=== PATIENT | female | born 1935 | race Caucasian/White ===

== ENCOUNTER 2016-07-09 13:46 | Emergency (ER) | payer OTHER ==
[~2016-07-09] VITALS: Ht 152.4 cm; Wt 72.0 kg
[~2016-07-09 13:46] MED LIST: ACET1TAB84 PO; ASPCH81 PO; ATOR-22 PO; CHOL100010 PO; COEN100C28 PO; CYAN500T PO; DEXTCAP23 PO; GLC500 PO; GLIM2TAB2 PO; MAGN400T6 PO; PRN10125 PO; RXC5 PO
[2016-07-09 14:01] VITALS: TEMP 36.9; Ht 152.4 cm; Wt 72.0 kg
[2016-07-09 14:55] LABS: URINE APPEARANCE CLEAR (CLEAR); URINE BILIRUBIN NEG (NEG); URINE COLOR YELLOW; URINE NITRITE NEG (NEG); URINE SPECIFIC GRAVITY 1.008 (1.000-1.030); UROBILINOGEN NEG (NEG); ZZUR CULT IF INDIC CLEAN CATCH NO
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
[2016-07-09 15:14] LABS: MANUAL MICROSCOPIC REQUIRED? NO; REVIEW REQ? NO
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
[2016-07-09 16:50] VITALS: BP 119/68; PULSE 80; O2SAT 95
== END 2016-07-09 16:51 | disposition home or self-care (01) ==
LOC: EDBD 13:46 → C.EDC 13:48
DX: S39.012A Strain of muscle, fascia and tendon of lower back, initial encounter (principal); V49.40XA Driver injured in collision with unspecified motor vehicles in traffic accident, initial encounter; Y93.89 Activity, other specified; Y99.8 Other external cause status; Y92.488 Other paved roadways as the place of occurrence of the external cause; Z98.1 Arthrodesis status; Z83.3 Family history of diabetes mellitus; Z82.49 Family history of ischemic heart disease and other diseases of the circulatory system; Z79.82 Long term (current) use of aspirin

== ENCOUNTER → 2016-08-07 | Outpatient (CLI) | payer OTHER ==
[2016-08-07 18:04] LABS: BLOOD UREA NITROGEN 22 mg/dl (7-18); BUN/CREATININE RATIO 22.7 (10-20); CALCIUM 10.3 mg/dl (8.5-10.1); CARBON DIOXIDE 29 mmol/L (21-32); CHLORIDE 104 mmol/L (98-107); CREATININE 0.98 mg/dl (0.60-1.20); GLUCOSE 70 mg/dl (70-99); POTASSIUM 4.1 mmol/L (3.5-5.1); SODIUM 141 mmol/L (136-145)
[2016-08-08 07:02] LABS: ESTIMATED AVERAGE GLUCOSE 128 mg/dl; HA1C FLAG Normal (Normal)
== END | disposition home or self-care (01) ==
LOC: C.LABPVFM 16:05
PROVIDERS: ATTEND Family Medicine
DX: E11.9 Type 2 diabetes mellitus without complications (principal); I10 Essential (primary) hypertension

== ENCOUNTER → 2016-10-18 | Outpatient (CLI) | payer OTHER ==
--- NOTE | 2016-10-18 16:39 | MAMMOGRAPHY REPORT ---
BILATERAL DIGITAL SCREENING MAMMOGRAM WITH CAD: 10/18/2016 CLINICAL HISTORY: Routine screening. TECHNIQUE: Current study was also evaluated with a Computer Aided Detection (CAD) system. Bilatera l CC and MLO views were obtained. COMPARISON: Comparison is made to exams dated: 10/18/2015 mammogram, 10/15/2014 mammogram, 10/14/2013 mammogram, 08/30/2012 mammogram, 08/03/2011 mammogram, and 07/18/2010 mammogram - [facility] enter. BREAST COMPOSITION: The tissue of both breasts is heterogeneously dense, which may obscure small ma sses. FINDINGS: No suspicious masses, calcifications, or areas of architectural distortion are noted in e ither breast. There has been no significant interval change compared to prior exams. Bilateral spencer gn-appearing calcifications are not significantly changed. IMPRESSION: ACR BI-RADS CATEGORY 2: BENIGN There is no mammographic evidence of malignancy. A 1 year screening mammogram is recommended. The p atient will receive written notification of the results. Approximately 10% of breast cancers are not detected with mammography. A negative mammographic repor t should not delay biopsy if a clinically suggestive mass is present. Kisha Saba M.D. ah/:10/18/2016 16:10:46 Mortgage Loan Processor: Vera PENN(R)(M), [facility] letter sent: Normal 1/2 BI-RADS Code: ACR BI-RADS Category 2: Benign
== END | disposition home or self-care (01) ==
LOC: C.MAMM 09:57
PROVIDERS: ATTEND Family Medicine
DX: Z12.31 Encounter for screening mammogram for malignant neoplasm of breast (principal)

== ENCOUNTER → 2017-04-04 | Outpatient (CLI) | payer OTHER ==
[2017-04-04 13:02] LABS: ALT/SGPT 24 U/L (12-78); AST/SGOT 13 U/L (15-37); BLOOD UREA NITROGEN 26 mg/dl (7-18); BUN/CREATININE RATIO 26.1 (10-20); CARBON DIOXIDE 26 mmol/L (21-32); CHLORIDE 106 mmol/L (98-107); CREATININE 0.99 mg/dl (0.60-1.20); GLUCOSE 144 mg/dl (70-99); MAGNESIUM 1.6 mg/dl (1.8-2.4); POTASSIUM 5.2 mmol/L (3.5-5.1); SODIUM 143 mmol/L (136-145)
[2017-04-04 13:05] LABS: CHOLESTEROL 199 mg/dl (0-200); CHOLESTEROL/HDL RATIO 3.7; HDL CHOLESTEROL 54 mg/dl; LDL CHOLESTEROL CALCULATED 114 mg/dl; TRIGLYCERIDES 156 mg/dl (0-150); VERY LOW DENSITY LIPOPROT CALC 31 mg/dl
== END ==
LOC: C.LABBFT 07:34
PROVIDERS: ATTEND Family Medicine
DX: E78.2 Mixed hyperlipidemia (principal); I10 Essential (primary) hypertension; E83.42 Hypomagnesemia

== ENCOUNTER 2017-07-04 11:44 | Observation (INO) | payer OTHER ==
[2017-06-20 09:34] VITALS: BMI 33.0
--- NOTE | 2017-06-20 10:07 | PAT Medication Instructions ---
Service Date Jun 20, 2017. Current Home Medication List Aspirin (Aspirin 81), 1 TAB PO HS Atorvastatin (Lipitor), 20 MG PO HS Cholecalciferol (Vitamin D3), 2,000 UNITS PO QD@1200 Coenzyme Q10 (Ubidecarenone) (Co Q10), 1 CAP PO QPM Cyanocobalamin (Vitamin B-12), 500 MCG PO QPM Glimepiride (Glimepiride), 1 TAB PO BID Lisinopril/Hctz (Prinzide 10-12.5MG *), 1 TAB PO QD@1200 Magnesium Oxide (Mag-Ox), 400 MG PO BID Metformin Hcl (Glucophage), 1 TAB PO BID Medication Instructions For Your Scheduled Surgery - Check with surgeon for instructions: Aspirin (Aspirin 81), 1 TAB PO HS - Hold the following medications 2 weeks prior to surgery: Coenzyme Q10 (Ubidecarenone) (Co Q10), 1 CAP PO QPM - Hold the following medications 24 hours prior to surgery: Lisinopril/Hctz (Prinzide 10-12.5MG *), 1 TAB PO QD@1200 - Hold the following medications 48 hours prior to surgery: Metformin Hcl (Glucophage), 1 TAB PO BID - Hold the following medications the morning of surgery: Cholecalciferol (Vitamin D3), 2,000 UNITS PO QD@1200 Glimepiride (Glimepiride), 1 TAB PO BID Magnesium Oxide (Mag-Ox), 400 MG PO BID - Take the following medications as scheduled the night before surgery: Magnesium Oxide (Mag-Ox), 400 MG PO BID Glimepiride (Glimepiride), 1 TAB PO BID Cyanocobalamin (Vitamin B-12), 500 MCG PO QPM Atorvastatin (Lipitor), 20 MG PO HS If you have any questions please call us at [phone] or [phone] or [phone]
[2017-06-20 11:59] LABS: BASO % 0.3 %; BASO ABS # 0.02 K/uL (0-0.2); EOS % 1.5 %; EOS ABS # 0.11 K/uL (0-0.5); HEMATOCRIT 38.9 % (37-47); HEMOGLOBIN 13.3 g/dL (12.0-16.0); IG# 0.04 K/uL (0.00-0.02); LYMPH % 29.5 %; LYMPH ABS # 2.18 K/uL (1.2-3.4); MEAN CELL VOLUME 95.1 fL (80-100); MEAN CORPUSCULAR HEMOGLOBIN 32.5 pg (25-34); MEAN CORPUSCULAR HGB CONC 34.2 g/dl (32-36); MEAN PLATELET VOLUME 10.7 fL (7.4-10.4); MONO ABS # 0.52 K/uL (0.11-0.59); NEUT % 61.2 %; NEUT ABS # 4.51 K/uL (1.4-6.5); PLATELET COUNT 238 K/uL (130-400); RED CELL DISTRIBUTION WIDTH SD 44.9 fL (36.4-46.3); WHITE BLOOD COUNT 7.38 K/uL (4.8-10.8)
[2017-06-20 12:20] LABS: CALCIUM 9.4 mg/dl (8.5-10.1); POTASSIUM 4.1 mmol/L (3.5-5.1)
[2017-06-20 12:34] LABS: CREATININE 0.96 mg/dl (0.60-1.20)
[2017-07-04] VITALS (8 sets, daily range): BP systolic 118–175; BP diastolic 70–92; PULSE 68–96; TEMP 36.4–37.6; O2SAT 91–99; Ht 152.4 cm; Wt 77.1 kg
[~2017-07-04] VITALS: Ht 152.4 cm; Wt 77.1 kg
[~2017-07-04 11:44] MED LIST changes: -ACET1TAB84 PO; -ASPCH81 PO; +ASPI-435 PO; +CEFAZOLIN 1000MG IV PUSH 5 ML IV SCH; -CHOL100010 PO; -DEXTCAP23 PO; -GLC500 PO; +LACTATED RINGER'S 1000ML 1,000 ML IV SCH; +METF1000 PO; -RXC5 PO; +VTMD1000 PO
[2017-07-04] MEDS ORDERED: ONDANSETRON INJ 2 MG/ML 2 ML VIAL IV PRN (12:15)
[2017-07-04] MEDS ORDERED: FLUMAZENIL 0.1 MG/1 ML 10 ML VIAL IV PRN (12:15)
[2017-07-04] MEDS ORDERED: MEPERIDINE HCL 25 MG/ML CARP IV PRN (12:15)
[2017-07-04] MEDS ORDERED: EpHEDrine SULFATE INJ 50 MG/ML AMP IV PRN (12:15)
[2017-07-04] MEDS ORDERED: FENTANYL CITRATE INJ 50 MCG/1 ML 2 ML VIAL IV PRN (12:15)
[2017-07-04] MEDS ORDERED: PHENYLEPHRINE 100MCG/ML 5ML SYR IV PRN (12:15)
[2017-07-04] MEDS ORDERED: ATROPINE SULFATE 0.1 MG/ML 5ML SYR IV PRN (12:15)
[2017-07-04] MEDS ORDERED: NALOXONE HCL 0.4 MG/1 ML VIAL/CARP IV PRN (12:15)
[2017-07-04] MEDS ORDERED: LABETALOL HCL IV 5 MG/ML 20ML IV PRN (12:15)
[2017-07-04] MEDS ORDERED: HYDROmorphone INJ 2 MG/ML SYR/VIAL IV PRN (12:15)
[2017-07-04] MEDS ORDERED: FENTANYL CITRATE INJ 50 MCG/1 ML 2 ML VIAL ONE (13:35)
[2017-07-04] MEDS ORDERED: MIDAZOLAM HCL 1 MG/ML 2ML VIAL ONE (13:35)
--- NOTE | 2017-07-04 13:36 | History & Physical Bridge Note ---
H&P Re-Evaluation Bridge Note: I have examined the patient, reviewed the History & Physical and in the interval since the performance of the History & Physical I have noted the following changes of clinical significance: No changes noted
--- NOTE | 2017-07-04 13:37 | History and Physical ---
History & Physical Date Jul 04, 2017. Chief Complaint Right SI joint pain History of Present Illness The patient is a 81 year old female with complaints of right SI joint pain Past Medical/Surgical History Medical Problems: (1) Lumbar stenosis with neurogenic claudication Additional History Hepatic Disease: No Endocrine Disorder: No Kidney Disease: No Hypertension: Yes Heart Disease: No Bleeding Tendencies: No Infectious Diseases: No Allergies Coded Allergies: Nifedipine (Verified Adverse Reaction, Unknown, pt states unable to tolerate-does not remember what occurred, 07/04/17) Home Medications Scheduled Aspirin (Aspirin 81), 1 TAB PO HS Atorvastatin (Lipitor), 20 MG PO HS Cholecalciferol (Vitamin D3), 2,000 UNITS PO QD@1200 Coenzyme Q10 (Ubidecarenone) (Co Q10), 1 CAP PO QPM Cyanocobalamin (Vitamin B-12), 500 MCG PO QPM Glimepiride (Glimepiride), 1 TAB PO BID Lisinopril/Hctz (Prinzide 10-12.5MG *), 1 TAB PO QD@1200 Magnesium Oxide (Mag-Ox), 400 MG PO BID Metformin Hcl (Glucophage), 1 TAB PO BID Physical Examination Skin: warm/dry, no rash Eyes: normal inspection, EOMI, sclerae normal ENT: normal ENT inspection, pharynx normal Head: normocephalic, atraumatic Neck: supple, no adenopathy, trachea midline Respiratory/Chest: lungs clear, normal breath sounds, no respiratory distress Cardiovascular: regular rate, rhythm, no edema, no murmur Abdomen / GI: normal bowel sounds, non tender Back: normal inspection Extremities: normal inspection, normal range of motion Neurologic/Psych: no motor/sensory deficits, alert, normal reflexes, oriented x 3 Diagnosis Right sacroiliitis Plan of Treatment Right SI joint fusion
[2017-07-04] MEDS ORDERED: BACITRACIN 50000 UNIT VIAL ONE (14:06)
[2017-07-04] MEDS ORDERED: BUPIVACAINE 0.5 % 5 MG/1 ML MPF 30ML VIAL ONE (14:07)
[2017-07-04] MEDS ORDERED: EpINEphrine INJ 1MG/ML AMP 1 MG/ML AMP ONE (14:07)
[2017-07-04] MEDS ORDERED: HYDROmorphone INJ 2 MG/ML SYR/VIAL ONE (14:09)
[2017-07-04] MEDS ORDERED: ROCURONIUM BROMIDE 10 MG/ML 5 ML VIAL IV ONE (14:52)
[2017-07-04] MEDS ORDERED: PHENYLEPHRINE 100MCG/ML 5ML SYR ONE (14:52)
[2017-07-04] MEDS ORDERED: PROPOFOL IV EMULSION 10 MG/ML 20 ML VIAL IV ONE (14:52)
[2017-07-04] MEDS ORDERED: LIDOCAINE HCL 2% 2 ML VIAL (20MG/ML) ONE (14:52)
[2017-07-04] MEDS ORDERED: ONDANSETRON INJ 2 MG/ML 2 ML VIAL ONE (14:52)
[2017-07-04] MEDS: SODIUM CHLORIDE 0.9% 1000ML 1,000 ML IV SCH ×2 (15:16→23:28)
--- NOTE | 2017-07-04 15:22 | [facility] Operative Report ---
Operative Report Operative Date Jul 04, 2017. Pre-Operative Diagnosis Right sacroiliitis Post-Operative Diagnosis same as preoperative diagnosis Procedure(s) Performed Right Sacroiliac Joint Fusion Surgeon Dr. Jones Multiple Resaw Operator Surgeon(s) Ashlyn TRAMMELL Estimated Blood Loss 10ml Findings None Specimens none Description of Procedure Patient was met with preoperatively case discussed all questions addressed. After informed consent obtained patient was taken to the operative suite underwent intubation and placed in a prone position the Demar table with chest pads and hip bolsters. The right upper buttock was then prepped and draped in normal sterile fashion. With the assistance of fluoroscopy identified the lateral inlet and outlet views of the right SI joint. A small 3 cm incision was placed on the right upper buttock and a guidewire was placed across the proximal aspect of the right SI joint. We verified our position with fluoroscopy. I then used dilators over the guidewire and subsequent 10 mm drill across SI joint. We placed a 40 mm WHALEN-coated slotted screw across the joint. A had excellent fit. Using outrigger guide a placed a second distal guidewire again verifying position with inlet outlet and lateral views. Was again dilated and drilled with a 10 mm drill. A 35 mm WHALEN-coated slotted screw again filled with locally harvested morcellized autograft and DBM placed across the joint. We had excellent fit appreciated at this screw as well. Incision was in copious irrigated and closed the subcutaneous Vicryl and 4 Monocryl for final skin closure Steri-Strip sterile dressing was placed. The patient awakened and taken to PACU in stable. Please note Zahira Pugh was present at the entire procedure involved in patient positioning complex portions of the surgery and final skin closure. I attest to the content of the Intraoperative Record and any orders documented therein. Any exceptions are noted below.
--- NOTE | 2017-07-04 15:24 | DIAGNOSTIC IMAGING REPORT ---
INTRAOPERATIVE SACRUM 3 VIEWS CLINICAL HISTORY: RT SACROILIAC JOINT FUSION COMPARISON STUDY: Lumbar spine dated 07/09/2016 FINDINGS: 91 seconds of fluoroscopic time was utilized. 3 intraoperative fluoroscopic spot images are provided for interpretation. There are postsurgical changes of discectomies and interbody fusions at the L4-5, and L5-S1 levels. 2 cannulated bolts/screws traverse the right SI joint. IMPRESSION: Interval placement of 2 right sacroiliac cannulated bolts/screws. Electronically signed by: Elfego Tariq M.D. 07/04/2017 3:23 PM Dictated Date/Time: 07/04/2017 3:21 PM
[2017-07-04] MEDS ORDERED: ACETAMINOPHEN 500 MG TAB PO PRN (15:30)
[2017-07-04] MEDS ORDERED: DO NOT ADMINISTER FLU VACCINE PRN (15:30)
[2017-07-04] MEDS ORDERED: HYDROmorphone INJ 1 MG/ML SYR IV PRN (15:30)
[2017-07-04] MEDS ORDERED: MAGNESIUM HYDROXIDE SUSP 30 ML UDC PO PRN (15:30)
[2017-07-04] MEDS ORDERED: LORAZEPAM INJ 1 MG in SYRINGE 0 ML IV PRN (15:30)
[2017-07-04] MEDS ORDERED: DO NOT ADMINISTER PNEUMOCOCCAL VACCINE PRN (15:30)
[2017-07-04] MEDS ORDERED: LORAZEPAM 1 MG TAB PO PRN (15:30)
[2017-07-04] MEDS ORDERED: OXYCODONE HCL IR 5 MG TAB (IMMEDIATE RELEASE) PO PRN (15:30)
[2017-07-04] MEDS ORDERED: NEOSTIGMINE METHYLSULFATE 1 MG/ML 10ML VIAL ONE (15:38)
[2017-07-04] MEDS ORDERED: ESMOLOL HCL 10 MG/ML 10 ML VIAL ONE (15:38)
[2017-07-04] MEDS ORDERED: GLYCOPYRROLATE INJ 0.2 MG/ML VIAL ONE (15:38)
[2017-07-04] MEDS ORDERED: ALBUTEROL HFA INHALER 8.5 GM INH ONE (15:38)
[2017-07-04] MEDS ORDERED: IV FLUIDS COMPLETED PRN (16:00)
--- NOTE | 2017-07-04 16:38 | Anesthesiology Progress Note ---
Anesthesia Post Op Note Date & Time Jul 04, 2017 at 16:38 Vital Signs Pain Intensity: 0 Vital Signs Past 12 Hours Date Time Temp Pulse Resp B/P (MAP) Pulse Ox O2 Delivery O2 Flow Rate FiO2 07/04/17 16:10 71 16 133/74 97 Nasal Cannula 2 07/04/17 16:00 37.2 76 18 134/66 98 Nasal Cannula 2 07/04/17 15:50 83 14 143/74 99 Oxymask 10 07/04/17 15:40 84 16 134/66 100 Oxymask 10 07/04/17 15:30 36.5 80 16 139/64 97 Oxymask 10 07/04/17 12:16 36.6 75 18 144/73 (96) 96 Room Air Notes Mental Status: alert / awake / arousable, participated in evaluation Pt Amnestic to Procedure: Yes Nausea / Vomiting: adequately controlled Pain: adequately controlled Airway Patency, RR, SpO2: stable & adequate BP & HR: stable & adequate Hydration State: stable & adequate Anesthetic Complications: no major complications apparent
[2017-07-04] MEDS ORDERED: NURSING DECISION MEDICATION ORDER SCH (17:30)
[2017-07-04] MEDS ORDERED: GLIMEPIRIDE 2 MG TAB PO SCH (17:45)
[2017-07-04] MEDS ORDERED: COUGH DROP (SUGAR FREE) LOZ 24 LOZ/1 BOX PO PRN (18:00)
[2017-07-04] MEDS ORDERED: DEXTROSE 50% 50 ML SYR IV PRN (18:15)
[2017-07-04] MEDS ORDERED: GLUCAGON FOR INJ 1 MG VIAL SQ PRN (18:15)
[2017-07-04] MEDS ORDERED: GLUCOSE 40% GEL 15 GM TUBE PO PRN (18:15)
[2017-07-04] MEDS ORDERED: GLUCOSE 10 TABS/TUBE PO PRN (18:15)
[2017-07-04] MEDS: ACETAMINOPHEN 325 MG TAB PO PRN (19:23)
[2017-07-04] MEDS ORDERED: ATORVASTATIN 20 MG TAB PO SCH (21:00)
[2017-07-04] MEDS ORDERED: ASPIRIN 81 MG ECTAB PO SCH (21:00)
[2017-07-04] MEDS: INSULIN ASPART 100 UNITS/ML 3 ML PEN SC SCH (21:00)
[2017-07-04] MEDS: MAGNESIUM OXIDE 400 MG TAB PO SCH (21:31)
[2017-07-04] MEDS: DOCUSATE SODIUM 100 MG CAP PO SCH (21:31)
[2017-07-04] MEDS ORDERED: CEFAZOLIN IV 1,000 MG in DEXTROSE 5% 50ML 50 ML IV SCH (22:00)
[2017-07-04] MEDS: CEFAZOLIN IV 1,000 MG in SYRINGE 0 ML IV SCH (22:35)
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
[2017-07-05] MEDS: ACETAMINOPHEN 325 MG TAB PO PRN (02:30)
[2017-07-05 04:00] VITALS: BP 124/71; PULSE 65; TEMP 36.9; O2SAT 92
[2017-07-05] MEDS: CEFAZOLIN IV 1,000 MG in SYRINGE 0 ML IV SCH (06:18)
[2017-07-05 06:30] LABS: BASO % 0.1 %; BASO ABS # 0.01 K/uL (0-0.2); EOS % 1.4 %; HEMATOCRIT 35.5 % (37-47); HEMOGLOBIN 12.1 g/dL (12.0-16.0); IG# 0.01 K/uL (0.00-0.02); LYMPH % 33.9 %; LYMPH ABS # 2.43 K/uL (1.2-3.4); MEAN CELL VOLUME 93.9 fL (80-100); MEAN CORPUSCULAR HGB CONC 34.1 g/dl (32-36); MEAN PLATELET VOLUME 10.1 fL (7.4-10.4); MONO % 9.6 %; MONO ABS # 0.69 K/uL (0.11-0.59); NEUT % 54.9 %; NEUT ABS # 3.93 K/uL (1.4-6.5); PLATELET COUNT 230 K/uL (130-400); RED CELL DISTRIBUTION WIDTH CV 12.6 % (11.5-14.5); RED CELL DISTRIBUTION WIDTH SD 43.4 fL (36.4-46.3); WHITE BLOOD COUNT 7.17 K/uL (4.8-10.8)
[2017-07-05 07:04] LABS: ALBUMIN 2.9 gm/dl (3.4-5.0); CALCIUM 9.1 mg/dl (8.5-10.1); CREATININE 1.02 mg/dl (0.60-1.20); POTASSIUM 3.9 mmol/L (3.5-5.1)
[2017-07-05 07:06] LABS: TOTAL PROTEIN 5.8 gm/dl (6.4-8.2)
[2017-07-05 07:20] VITALS: BP 130/72; PULSE 65; TEMP 36.8; O2SAT 92
[2017-07-05 07:52] LABS: HEMOGLOBIN A1C 6.6 % (4.5-5.6)
[2017-07-05] MEDS ORDERED: RXC5 PO (08:19)
--- NOTE | 2017-07-05 08:21 | Discharge Instructions ---
Discharge Instructions Date of Service Jul 05, 2017. Admission Reason for Admission: Sacroiliac Joint Dysfunction Discharge Discharge Diagnosis / Problem: sacralilitis Discharge Goals Goal(s): Improve function Activity Recommendations Activity Limitations: per Instructions/Follow-up section May Resume Sexual Activity: after two weeks Shower/Bathe: may shower/bathe in 3 days Weightbearing Status: Right toe touch . Instructions / Follow-Up Instructions / Follow-Up follow in two weeks as scheduled Current Hospital Diet Patient's current hospital diet: Diabetes Type 2 Diet Discharge Diet Recommended Diet: Regular Diet Procedures Procedures Performed: Right Sacroiliac Joint Fusion Pending Studies Studies pending at discharge: no Laboratory Results Hemoglobin A1c Test 07/05/17 06:14 Range/Units Estimated Average Glucose 143 mg/dl Hemoglobin A1c 6.6 H 4.5-5.6 % Lipid Panel Test 04/04/17 08:00 Range/Units Triglycerides Level 156 H 0-150 mg/dl Cholesterol Level 199 0-200 mg/dl HDL Cholesterol 54 mg/dl Cholesterol/HDL Ratio 3.7 LDL Cholesterol, Calculated 114 mg/dl Medical Emergencies . Who to Call and When: Medical Emergencies: If at any time you feel your situation is an emergency, please call 911 immediately. . Non-Emergent Contact Non-Emergency issues call your: Primary Care Provider . "Provider Documentation" section prepared by Carmelo Jones. . VTE Core Measure Inpt VTE Proph given/why not?: Sienna Fernandez, TESS's
[2017-07-05] MEDS: DOCUSATE SODIUM 100 MG CAP PO SCH (08:30)
[2017-07-05] MEDS: MAGNESIUM OXIDE 400 MG TAB PO SCH (08:30)
--- NOTE | 2017-07-05 08:31 | Discharge Summary ---
Orthopedic Discharge Summary Admission Date/Reason Jul 04, 2017 at 14:00 Sacroiliac Joint Dysfunction. Discharge Date/Disposition Jul 05, 2017 Home Diagnosis Principal Diagnosis: Sacroiliitis Admission Physical Exam As per Admitting History & Physical. Hospital Course Patient underwent right SI joint fusion. Tolerated this well. She's taken to the orthopedic floor postop we. She underwent physical therapy will be discharge home today. Discharge Instructions Please refer to the electronic Patient Visit Report (Discharge Instructions) for additional information.
[2017-07-05] MEDS: INSULIN ASPART 100 UNITS/ML 3 ML PEN SC SCH ×2 (08:33→12:38)
--- NOTE | 2017-07-05 08:46 | Anesthesiology Progress Note ---
Anesthesia Post Op Note Date & Time Jul 05, 2017 at 08:46 Vital Signs Pain Intensity: 0.0 Vital Signs Past 12 Hours Date Time Temp Pulse Resp B/P (MAP) Pulse Ox O2 Delivery O2 Flow Rate FiO2 07/05/17 07:25 Room Air 07/05/17 07:20 36.8 65 15 130/72 (91) 92 Room Air 07/05/17 04:00 36.9 65 16 124/71 (88) 92 Room Air 07/04/17 23:35 37.3 76 16 118/70 (86) 91 Room Air 07/04/17 23:25 Room Air Notes Mental Status: alert / awake / arousable, participated in evaluation Pt Amnestic to Procedure: Yes Nausea / Vomiting: adequately controlled Pain: adequately controlled Airway Patency, RR, SpO2: stable & adequate BP & HR: stable & adequate Hydration State: stable & adequate Anesthetic Complications: no major complications apparent
[2017-07-05 09:50] VITALS: BP 130/72; PULSE 65; TEMP 36.8; O2SAT 92
[2017-07-05 11:23] VITALS: BP 137/72; PULSE 69; TEMP 36.7; O2SAT 95
[2017-07-05 11:44] VITALS: BP 136/77; PULSE 72
[2017-07-05] MEDS ORDERED: LISINOPRIL/HCTZ 10/12.5MG TAB PO SCH (12:00)
[2017-07-06] MEDS ORDERED: BISACODYL 10 MG SUPP PR PRN (06:00)
== END 2017-07-05 14:20 | disposition home or self-care (01) ==
LOC: C.ACU 11:44 → C.3E 14:00 → ENRESERV 16:02
PROVIDERS: ADMIT Orthopaedic Surgery Orthopaedic Surgery of the Spine; ATTEND Orthopaedic Surgery Orthopaedic Surgery of the Spine
DX: M46.1 Sacroiliitis, not elsewhere classified (principal); E11.9 Type 2 diabetes mellitus without complications; I73.9 Peripheral vascular disease, unspecified; E78.5 Hyperlipidemia, unspecified; I10 Essential (primary) hypertension; M19.90 Unspecified osteoarthritis, unspecified site; Z98.1 Arthrodesis status; Z79.84 Long term (current) use of oral hypoglycemic drugs; Z83.3 Family history of diabetes mellitus; Z82.49 Family history of ischemic heart disease and other diseases of the circulatory system; Z79.82 Long term (current) use of aspirin

== ENCOUNTER → 2017-09-21 | Outpatient (CLI) | payer OTHER ==
[~2017-09-21] MED LIST changes: -CEFAZOLIN 1000MG IV PUSH 5 ML IV SCH; -LACTATED RINGER'S 1000ML 1,000 ML IV SCH; +RXC5 PO
[2017-09-21 12:56] LABS: HEMOGLOBIN A1C 6.5 % (4.5-5.6)
[2017-09-21 13:12] LABS: ALT/SGPT 21 U/L (12-78); AST/SGOT 13 U/L (15-37); BLOOD UREA NITROGEN 26 mg/dl (7-18); CALCIUM 10.2 mg/dl (8.5-10.1); CARBON DIOXIDE 27 mmol/L (21-32); CREATININE 1.07 mg/dl (0.60-1.20); GLUCOSE 134 mg/dl (70-99); POTASSIUM 4.3 mmol/L (3.5-5.1); SODIUM 139 mmol/L (136-145)
[2017-09-21 13:16] LABS: ALKALINE PHOSPHATASE 80 U/L (45-117); CHOLESTEROL 183 mg/dl (0-200); LDL CHOLESTEROL CALCULATED 101 mg/dl
== END | disposition home or self-care (01) ==
LOC: C.LABBFT 07:34
PROVIDERS: ATTEND Internal Medicine
DX: E78.2 Mixed hyperlipidemia (principal); E11.9 Type 2 diabetes mellitus without complications; E83.42 Hypomagnesemia; E55.9 Vitamin D deficiency, unspecified

== ENCOUNTER → 2017-10-23 | Outpatient (CLI) | payer OTHER ==
--- NOTE | 2017-10-23 14:24 | MAMMOGRAPHY REPORT ---
BILATERAL DIGITAL SCREENING MAMMOGRAM TOMOSYNTHESIS WITH CAD: 10/23/2017 CLINICAL HISTORY: Routine screening. TECHNIQUE: Breast tomosynthesis in addition to standard 2D mammography was performed. Current study was also evaluated with a Computer Aided Detection (CAD) system. COMPARISON: Comparison is made to exams dated: 10/18/2016 mammogram, 10/18/2015 mammogram, 10/15/2014 m ammogram, 10/14/2013 mammogram, 08/30/2012 mammogram, and 08/03/2011 mammogram - [facility]. BREAST COMPOSITION: The tissue of both breasts is heterogeneously dense, which may obscure small mas ses. FINDINGS: The parenchymal pattern is similar to prior exams. There are scattered benign coarse calc ifications in the breasts. No developing mass, architectural distortion or cluster of suspicious ema rocalcifications is seen. IMPRESSION: ACR BI-RADS CATEGORY 2: BENIGN There is no mammographic evidence of malignancy. A 1 year screening mammogram is recommended. The pa tient will receive written notification of the results. Approximately 10% of breast cancers are not detected with mammography. A negative mammographic report should not delay biopsy if a clinically suggestive mass is present. Farzana Silver M.D. ay/:10/23/2017 13:34:18 Wharf Tender Helper: Vera PENN(R)(M), [facility] letter sent: Normal 1/2 BI-RADS Code: ACR BI-RADS Category 2: Benign
== END | disposition home or self-care (01) ==
LOC: C.MAMM 12:54
PROVIDERS: ATTEND Internal Medicine
DX: Z12.31 Encounter for screening mammogram for malignant neoplasm of breast (principal)

== ENCOUNTER → 2018-02-11 | Outpatient (CLI) | payer OTHER ==
[~2018-02-11] MED LIST changes: +ACET1TAB84 PO; -MAGN400T6 PO
[2018-02-11 13:06] LABS: HEMOGLOBIN A1C 6.1 % (4.5-5.6)
[2018-02-11 13:19] LABS: ALBUMIN 3.7 gm/dl (3.4-5.0); ALKALINE PHOSPHATASE 101 U/L (45-117); ALT/SGPT 21 U/L (12-78); AST/SGOT 16 U/L (15-37); BLOOD UREA NITROGEN 19 mg/dl (7-18); CALCIUM 10.3 mg/dl (8.5-10.1); CARBON DIOXIDE 25 mmol/L (21-32); CHOLESTEROL 161 mg/dl (0-200); CREATININE 0.92 mg/dl (0.60-1.20); GLUCOSE 105 mg/dl (70-99); LDL CHOLESTEROL CALCULATED 79 mg/dl; POTASSIUM 4.5 mmol/L (3.5-5.1); SODIUM 139 mmol/L (136-145); TOTAL PROTEIN 7.1 gm/dl (6.4-8.2)
== END | disposition home or self-care (01) ==
LOC: C.LABBFT 08:37
PROVIDERS: ATTEND Internal Medicine
DX: E11.9 Type 2 diabetes mellitus without complications (principal); E83.42 Hypomagnesemia; E55.9 Vitamin D deficiency, unspecified; E78.2 Mixed hyperlipidemia

== ENCOUNTER 2020-12-20 08:06 | Inpatient (IN) ==
--- NOTE | 2020-12-03 16:12 | PAT Medication Instructions ---
Medication Instructions Date of Service December 03, 2020 Home Medications Medication Instructions Recorded blood sugar diagnostic #50 ea 07/31/19 glimepiride 4 mg tablet 4 mg PO BID #180 tab 02/09/20 metformin 1,000 mg tablet 1,000 mg PO BID #180 tab 02/11/20 glimepiride 4 mg tablet 4 mg PO BID metformin 1,000 mg tablet 1,000 mg PO BID magnesium oxide 500 mg capsule 500 mg PO BID aspirin [Aspir-81] 81 mg PO HS atorvastatin 40 mg PO QAM lisinopril 20 mg PO QAM DO NOT take the morning of surgery glimepiride 4 mg tablet 4 mg PO BID metformin 1,000 mg tablet 1,000 mg PO BID magnesium oxide 500 mg capsule 500 mg PO BID lisinopril 20 mg PO QAM Take morning of surgery With a small sip of water, OTHERWISE NOTHING TO EAT OR DRINK AFTER MIDNIGHT: atorvastatin 40 mg PO QAM Take evening before surgery glimepiride 4 mg tablet 4 mg PO BID metformin 1,000 mg tablet 1,000 mg PO BID magnesium oxide 500 mg capsule 500 mg PO BID aspirin [Aspir-81] 81 mg PO HS Other Notes If you have any questions please call us at [phone] or [phone] or [phone] or [phone]
--- NOTE | 2020-12-07 10:22 | Anesthesiology Consultation ---
Date of Service December 07, 2020 Assessment & Plan (1) Encounter for pre-operative examination: Chart Review Chart Review: Acceptable Risk for Surgery (pending PCP clearance 12/08 and preop Covid testing results ) and Patient seen in Pre Admission Testing Awaiting PCP clearance scheduled 12/08/20 - Check BSG AM DOS Per PAT appt on 12/07/20, pt resides in [facility]. Traveled to [facility] over weekend. Wears mask, uses good hand hygiene and socially distances. No known Covid positive contacts or Covid related symptoms. No known Covid infection in the past 90 days. Preop Covid testing scheduled 12/17/20= will await results. Educated on importance of self quarantining, social distancing and wearing mask in public both for the patient after Covid testing done Teaching & Discussion Pre-Anesthesia Teaching/Discussion Notes: Instructed NPO after midnight before surgery,except medications with 15 cc of water. Medication instructions provided according to the PAT guidelines. History Surgery Operation Date: 12/21/20 07:45 Proposed Procedures p Spine: L2-L3 Decompression/Fusion, L3-L4 Hardware Removal,*Spinal Cord Monitoring* - Carmelo Jones, Height/Weight Height: 5 ft Weight: 71.2 kg Allergies Allergy/AdvReac Type Severity Reaction Status Date / Time nifedipine AdvReac Unknown pt states Verified 12/01/20 16:09 unable to tolerate-does not remember what occurred Medications Home Medications Medication Instructions Recorded Confirmed Last Taken blood-glucose meter #1 ea 01/31/19 06/08/20 Unknown blood sugar diagnostic #50 ea 07/31/19 06/08/20 Unknown glimepiride 4 mg tablet 4 mg PO BID #180 tab 02/09/20 12/01/20 Unknown metformin 1,000 mg tablet 1,000 mg PO BID #180 tab 02/11/20 12/01/20 Unknown magnesium oxide 500 mg capsule 500 mg PO BID 05/10/20 12/01/20 Unknown aspirin [Aspir-81] 81 mg PO HS 12/01/20 12/01/20 Unknown atorvastatin 40 mg PO QAM 12/01/20 12/01/20 Unknown lisinopril 20 mg PO QAM 12/01/20 12/01/20 Unknown Past Medical History Medical History (Updated 12/07/20 @ 12:04 by Martina Polk PA-C) Aortic aneurysm Stable per patient - follows with PCP US AAA 07/08/20= "No significant change in an infrarenal abdominal aortic aneurysm, measuring 3.1 cm." Aortic stenosis Mild per 04/2019 ECHO = MICHELLE 1.5cm2; AV mean gradient= 11.3 mmHg; AV max velocity= 2.28m/s No wood 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 Benign essential hypertension Carotid artery stenosis Per 04/17/19 carotid doppler: <50% stenosis to bilateral ICAs, >50% stenosis to left ECA Cerebral ischemia Hyperparathyroidism Follows with endo Hypomagnesemia Lumbar radicular pain Extensive epidural fibrosis Lumbar stenosis with neurogenic claudication Mixed hyperlipidemia Peripheral vascular disease Postlaminectomy syndrome of lumbosacral region Short-term memory loss Type II diabetes mellitus Glucose controlled per patient Exercise / Class Metabolic Activity II 4-5 Yardwork/Stairs/Walk up hill (water walking 3 x week (60 minutes); one flight of stairs- no chest pain or SOB ) Past Family History Family History Father Myocardial infarction Unknown Ovarian cancer granddaughter Daughter Thyroid cancer Malignant neoplasm of kidney Mother Diabetes Brother Diabetes Denies family history of Prostate cancer Breast cancer Colorectal cancer Past Surgical History Surgical History History of cataract surgery R/L History of colonoscopy History of fusion of lumbar spine lumbar vertebral fusion History of hysterectomy History of hysterectomy total with unilateral removal of ovary History of laparoscopic cholecystectomy History of surgical fusion joint sacroiliac joint fusion History of tonsillectomy History of umbilical hernia repair Past Anesthesia History No Hx of Anesthesia Complications and No Family Hx of Anesthesia Complications History of PONV No Hx of PONV and No Hx of Motion Sickness Social History Smoking Status: Never smoker Do You Dip or Chew Tobacco: No Hx Alcohol Use: Yes Alcohol type: hard liquor Alcohol Intake Frequency Comment: 1-2 X A YR Hx Substance Use: No Review of Systems Occ snoring - no witnessed apnea - no hx of sleep study Patient denies chest pain, shortness of breath, dyspnea on exertion, reflux, cough, wheezing, palpitations. No hx of seizures, stroke, [place]. No hx of blood clots or blood transfusions Physical Exam Vital Signs VITALS BP 113/73 P 68 TEMP 98.4 SP02 95% RESP 16 Constitutional no acute distress ENMT Mouth: no TMJ clicking Thyromental Distance: > or= 3.5 Finger Breadths (3.5) Mallampati Class: I Capped on top left front tooth Neck + limited neck extension (mild ) Respiratory normal respiratory effort; no respiratory distress Auscultation: lungs clear to auscultation bilaterally; no wheezes Cardiovascular Rate/Rhythm: regular rate and regular rhythm Heart Sounds: + murmur (III/ systolic murmur ) Vessels: + carotid bruit (presumed radiation to bilateral carotid arteries ) Musculoskeletal Spine: no pain with cervical ROM Extremities: extremities normal to inspection Psychiatric Orientation: alert Lab Results Anesthesia Preop Results Results Anesthesia Widget: WBC 6.47 K/uL (4.8-10.8) 12/07/20 Hgb 13.4 g/dL (12.0-16.0) 12/07/20 Hct 40.0 % (37-47) 12/07/20 Plt 262 K/uL (130-400) 12/07/20 Na 142 mmol/L (136-145) 12/07/20 K 4.6 mmol/L (3.5-5.1) 12/07/20 Cl 109 mmol/L (98-107) H 12/07/20 CO2 26 mmol/L (21-32) 12/07/20 BUN 26 mg/dl (7-18) H 12/07/20 Creat 0.98 mg/dl (0.6-1.2) 12/07/20 Glucose Level 110 mg/dl (70-99) H 12/07/20 PT 10.5 Seconds (9.0-12.0) 12/07/20 PTT 24.9 Seconds (21.0-31.0) 12/07/20 INR 1.0 (0.9-1.1) 12/07/20 HA1c 6.1 % (4.5-5.6) H 12/07/20 Urine Color Yellow 12/07/20 Urine Appearance Clear (Clear) 12/07/20 Urine pH 5.0 (4.5-7.5) 12/07/20 Urine Specific [place] 1.022 (1.000-1.030) 12/07/20 Urine Protein Negative (Negative) 12/07/20 Urine Glucose (UA) Negative (Negative) 12/07/20 Urine Ketones Negative (Negative) 12/07/20 Urine Blood Negative (Negative) 12/07/20 Urine Nitrite Negative (Negative) 12/07/20 Urine Bilirubin Negative (Negative) 12/07/20 Urine Urobilinogen Negative (Negative) 12/07/20 Urine Leukocyte Esterase 1+ (Negative) H 12/07/20 Urine WBC (Auto) 1-5 /hpf (0-5) 12/07/20 Urine RBC (Auto) 0-4 /hpf (0-4) 12/07/20 Urine Hyaline Casts (Auto) 1-5 /lpf (0-5) 12/07/20 Urine Epithelial Cells (Auto) >30 /lpf (0-5) H 12/07/20 Urine Bacteria (Auto) Negative (Negative) 12/07/20 Blood Type A Positive 12/07/20 Antibody Screen NEGATIVE 12/07/20 Testing Electrocardiogram Date: 12/07/20 Findings: + NSR @ (63bpm) Normal EKG per cardio. Chest X-Ray Date: 12/07/20 Findings: + NAD The cardiac and mediastinal contours are normal. There is no evidence of focal pulmonary consolidation. There is no evidence of failure. No pleural effusions are visualized.[Postsurgical changes are present within the lumbar spine. There is calcification within the abdominal aorta which measures a maximum of 32 mm in diameter uncorrected for magnification. There are surgical clips within the right upper quadrant consistent with a prior cholecystectomy. Echocardiogram Date: 04/17/19 EF: 65-70% LV Function: normal RWMA: + none Other Findings: + LVH (mild/concentric ) and + diastolic dysfunction (Grade I ) Mild aortic stenosis. MICHELLE 1.5cm2; AV mean gradient= 11.3 mmHg; AV max velocity= 2.28m/s Other Testing US abdominal aortic aneurysm 07/08/20= No significant change in an infrarenal abdominal aortic aneurysm, measuring 3.1 cm. Carotid duplex 04/17/2019 = <50% stenosis in the internal carotid arteries bilaterally. >50% stenosis in the left ECA. Antegrade flow in both vertebral arteries.
[2020-12-20] MEDS ORDERED: GABAPENTIN 300 MG CAP ONE (08:44)
[2020-12-20] MEDS ORDERED: CeleBREX 200 MG CAP ONE (08:44)
[2020-12-20] MEDS ORDERED: ACETAMINOPHEN 500 MG TAB ONE (08:44)
[2020-12-20] MEDS ORDERED: fentaNYL citrate 100 MCG/2 ML VIAL IV PRN (08:50)
[2020-12-20] MEDS ORDERED: ONDANSETRON INJ 2 MG/ML 2 ML VIAL IV PRN (08:50)
[2020-12-20] MEDS ORDERED: ePHEDrine sulfate 50 MG/ML AMP IV PRN (08:50)
[2020-12-20] MEDS ORDERED: ATROPINE SULFATE 0.1 MG/ML 10ML SYR IV PRN (08:50)
[2020-12-20] MEDS ORDERED: ONDANSETRON INJ 2 MG/ML 2 ML VIAL ONE ×2 (08:55→10:50)
[2020-12-20] MEDS ORDERED: NEOSTIGMINE METHYLSULFATE 1 MG/ML 10ML VIAL ONE (08:55)
[2020-12-20] MEDS ORDERED: GLYCOPYRROLATE 0.2 MG/ML VIAL ONE ×2 (08:55→10:50)
[2020-12-20] MEDS ORDERED: PROPOFOL IV EMULSION 10 MG/ML 20 ML VIAL IV ONE (08:55)
[2020-12-20] MEDS ORDERED: DEXAMETHASONE SOD INJ 4 MG/ML VIAL ONE (08:55)
[2020-12-20] MEDS ORDERED: LIDOCAINE 2% 2 ML VIAL/AMP(20MG/ML) INFIL ONE (08:55)
[2020-12-20] MEDS ORDERED: fentaNYL citrate 100 MCG/2 ML VIAL ONE (08:55)
[2020-12-20] MEDS ORDERED: ROCURONIUM BROMIDE 10 MG/ML 5 ML VIAL IV ONE (08:58)
[2020-12-20] MEDS ORDERED: LARYING-O-JET KIT (LTA) ONE (08:58)
--- NOTE | 2020-12-20 09:32 | History & Physical Bridge Note ---
Date of Service December 20, 2020 History & Physical Bridge Note I have examined the patient, reviewed the History & Physical and in the interval since the performance of the History & Physical I have noted the following changes of clinical significance: no changes noted
--- NOTE | 2020-12-20 09:33 | History & Physical Report ---
Date of Service December 20, 2020 Assessment & Plan (1) Lumbar stenosis with neurogenic claudication: Admission and Anticipated Discharge Date Admission Date: L2-L3 decompression fusion, L3-L4 hardware removal History of Present Illness Chief Complaint: Back and bilateral leg pain Primary Care Provider: Avi Johnston MD This is a 85-year-old female presents with worsening back and bilateral leg pain. Failing since course of nonoperative care is here for surgical invention. Allergies Allergy/AdvReac Type Severity Reaction Status Date / Time nifedipine AdvReac Unknown pt states Verified 12/20/20 08:35 unable to tolerate-does not remember what occurred Home Medications Medication Instructions Recorded Confirmed Type blood-glucose meter #1 ea 01/31/19 12/08/20 History blood sugar diagnostic #50 ea 07/31/19 12/08/20 Rx glimepiride 4 mg tablet 4 mg PO BID #180 tab 02/09/20 12/20/20 Rx metformin 1,000 mg tablet 1,000 mg PO BID #180 tab 02/11/20 12/20/20 Rx aspirin [Aspir-81] 81 mg PO HS 12/01/20 12/20/20 History atorvastatin 40 mg PO QAM 12/01/20 12/20/20 History lisinopril 20 mg PO QAM 12/01/20 12/20/20 History magnesium oxide 500 mg capsule 500 mg PO BID #60 cap 12/08/20 12/20/20 Rx cinacalcet 30 mg tablet 30 mg PO BID 5 Days #10 tab 12/14/20 12/20/20 Rx Past Med/Surg History Medical History Aortic aneurysm Stable per patient - follows with PCP US AAA 07/08/20= "No significant change in an infrarenal abdominal aortic aneurysm, measuring 3.1 cm." Aortic stenosis Mild per 04/2019 ECHO = MICHELLE 1.5cm2; AV mean gradient= 11.3 mmHg; AV max velocity= 2.28m/s 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 Benign essential hypertension Carotid artery stenosis Per 04/17/19 carotid doppler: <50% stenosis to bilateral ICAs, >50% stenosis to left ECA Cerebral ischemia Hyperparathyroidism Follows with endo Hypomagnesemia Lumbar radicular pain Extensive epidural fibrosis Lumbar stenosis with neurogenic claudication Mixed hyperlipidemia Peripheral vascular disease Postlaminectomy syndrome of lumbosacral region Short-term memory loss Type II diabetes mellitus Glucose controlled per patient Surgical History History of cataract surgery History of colonoscopy History of fusion of lumbar spine History of hysterectomy History of laparoscopic cholecystectomy History of surgical fusion joint History of tonsillectomy History of umbilical hernia repair Family History Father Myocardial infarction Unknown Ovarian cancer granddaughter Daughter Thyroid cancer Malignant neoplasm of kidney Mother Diabetes Brother Diabetes Denies family history of Prostate cancer Breast cancer Colorectal cancer Social History Smoking Status: Never smoker Second Hand Exposure: No; Do You Dip or Chew Tobacco: No; Hx Alcohol Use: No Hx Substance Use: No Preferred Language: Eritrean Communication Ability: Effective Visual Impairment: No Limitations Hearing Ability: Use of Hearing Aid Cane Furniture Maker Required: No Beliefs That Will Affect Care: None marital status: Current Living Situation: Spouse current occupational status: retired Other Information That Helps Us Care for You: No Feels Safe at Home: Yes Safety Concerns: Feels Safe At This Time Childhood Exposure to Second-Hand Smoke: Yes caffeine: No during the past year weight has: remained stable Dental Care, Regularly: Yes Physical Activity Frequency: 3-4 Times per Week Seatbelt Use: always Sunscreen Use: Yes Assistive Devices: Cane, Glasses and Hearing Aid - Bilateral Assistive Devices Comment: CAPPED FRONT UPPER TOOTH Physical Exam Physical Exam: Patient is alert and oriented Heart regular rhythm Lungs clear to auscultation Results & Data ([facility]) Vital Signs (Past 12 Hours) Vital Signs Temp Pulse Resp BP Pulse Ox 12/20/20 08:40 36.6 C 57 L 20 145/84 H 96
[2020-12-20] MEDS ORDERED: BUPIVACAINE/EPINEPHRINE 0.5% MPF 1:200,000 30 ML VIAL ONE (10:11)
[2020-12-20] MEDS ORDERED: FLOSEAL HEMOSTATIC MATRIX 10ML TOP ONE (11:04)
[2020-12-20] MEDS ORDERED: ePHEDrine sulfate 50 MG/ML SYR ONE (11:45)
[2020-12-20] MEDS ORDERED: PHENYLEPHRINE 100MCG/ML 5ML SYR ONE (11:45)
--- NOTE | 2020-12-20 11:48 | Operative Report ---
Post Operative Report Pre & Post Diagnosis Operation Date: 12/20/20 09:45 Pre-Op Diagnosis: Spinal Senosis,Lumbar Region with Neurogenic Mike Post-Op Diagnosis: Spinal Senosis,Lumbar Region with Neurogenic Mike I identified the patient and participated in the time-out.: Yes Procedure Operation Date: 12/20/20 09:45 Actual Procedures #1 Removal of posterior instrumentation L3-L4. #2 exploration of fusion L3-L4. #3 lumbar decompression with bilateral medial facetectomies and foraminotomies L1-2 and L2-3. #4 posterior spinal fusion L2-3. #5 placement posterior instrumentation L2-3 L3-4. #6 interbody fusion L2-3. #7 placement peek cage 10 x 22 mm at L2-3. #8 placement locally harvested morselized autograft in the posterior gutters. #9 placement infuse collagen sponge, master graft in the posterior lateral gutters and I factor in the interbody space. Surgeon Carmelo Jones, District Court Reporter Zahira Pugh Estimated Blood Loss 100 Findings Consistent with Post-Op Diagnosis Specimens None Indications This is an 85-year-old female known to me presents with above-mentioned diagnosis with family since course of nonoperative care she is here for debridement procedure. Description of Procedure Patient was met with identified informed consent obtained. Patient was then taken to the operative suite underwent ablation placed in a prone position the Demar table top of some frame. All bony prominences well-padded eyes inspected to ensure no external pressure placed upon the. This point the lumbar spine was prepped and draped in a sterile fashion. Sharp dissection with the assistance of Bovie cautery performed down to and exposing the lamina and transverse processes of L2 and instrumentation at L3 and L4 bilaterally. Then proceeded move the hardware at L3-L4 bilaterally explore the fusion mass noting it in the mature. Then performed a complete laminectomy of L2 partial laminectomy of L1 including bilateral medial facetectomies and foraminotomies addressing severe spinal stenosis. Pedicle screws were then placed in L2 and L3 and L4 bilaterally with assistance of fluoroscopy and the proper sized cricket placed. By way of a transforaminal approach and left complete discectomy of L2- L3 was performed endplates curetted to subcortically bone and a 10 x 22 mm peek cage filled I factor tapped in position. The rods were then compressed locked into final position bilaterally. The transverse processes of L2 and L3 burred to subcortical bleeding bone. Infuse collagen sponge master graft and local autograft was placed in the posterior gutters. 15 round LAWRENCE drain inserted. The incision was then closed with 1 Vicryl in the fascia 2-0 Vicryl subcutaneously and 4 Monocryl for final skin closure. Steri-Strip sterile dressings placed. Patient will continue PACU stable condition. Please note spinal cord monitoring was utilized at the procedure no changes noted. Lastly Zahira Pugh was present at the entire surgery involved the patient positioning complex portions of the surgery and final skin closure. I attest to the content of the Intraoperative Record and any orders documented therein. Any exceptions are noted below.
--- NOTE | 2020-12-20 13:31 | Anesthesiology Progress Note ---
Date of Service December 20, 2020 Anesthesia Post Procedure Vital Signs Vital Signs: Temp Pulse Pulse Resp BP BP Pulse Ox 12/20/20 13:15 72 14 131/60 96 12/20/20 13:00 74 14 129/64 97 12/20/20 12:50 70 14 125/59 L 98 12/20/20 12:40 97.3 F L 70 14 134/59 L 100 12/20/20 12:30 74 14 136/56 L 99 12/20/20 12:20 79 16 144/63 H 100 12/20/20 12:10 90 16 127/64 100 12/20/20 12:07 97.2 F L 97 H 16 130/62 100 12/20/20 08:40 97.9 F 57 L 20 145/84 H 96 Transfer of Care Handoff Completed per policy Notes Mental Status: alert / awake / arousable and participated in evaluation Patient Amnestic to Procedure: Yes Nausea / Vomiting: adequately controlled Pain: adequately controlled Airway Patency, RR, SpO2: stable & adequate BP & HR: stable & adequate Hydration State: stable & adequate Anesthetic Complications: no major complications apparent and Pt Satisfied with anesthetic care
[2020-12-20] MEDS ORDERED: hydrOXYzine HCl 25 MG TAB PO PRN (14:03)
[2020-12-20] MEDS ORDERED: ACETAMINOPHEN 500 MG TAB PO PRN (14:03)
[2020-12-20] MEDS ORDERED: HYDROmorphone INJ 0.5 MG/0.5 ML SYR IV PRN (14:03)
[2020-12-20] MEDS ORDERED: ACETAMINOPHEN 1,000 MG/100 ML VIAL IV PRN (14:03)
[2020-12-20] MEDS ORDERED: ONDANSETRON 4 MG OD TAB PO PRN (14:03)
[2020-12-20] MEDS ORDERED: LORazepam 0.5 MG/1 ML VIAL IV PRN (14:03)
[2020-12-20] MEDS ORDERED: SODIUM CHLORIDE 0.9% 1000ML 1,000 ML IV SCH (14:03)
[2020-12-20] MEDS ORDERED: DO NOT ADMINISTER PNEUMOCOCCAL VACCINE PRN (14:03)
[2020-12-20] MEDS ORDERED: METOCLOPRAMIDE HCL INJ 5 MG/ML 2 ML VIAL IV PRN (14:03)
[2020-12-20] MEDS ORDERED: NALOXONE HCL 0.4 MG/1 ML VIAL/CARP IV PRN (14:03)
[2020-12-20] MEDS ORDERED: ALUMINUM/MAGNESIUM SUSP 30 ML UDC PO PRN (14:03)
[2020-12-20] MEDS ORDERED: LORazepam 0.5 MG TAB PO PRN (14:03)
[2020-12-20] MEDS ORDERED: FAMOTIDINE 20 MG TAB PO PRN (14:03)
[2020-12-20] MEDS ORDERED: MAGNESIUM HYDROXIDE SUSP 30 ML UDC PO PRN (14:03)
[2020-12-20] MEDS ORDERED: diphenhydrAMINE Capsule 25 MG CAP PO PRN (14:03)
[2020-12-20] MEDS ORDERED: PROMETHAZINE HCL 12.5 MG in SODIUM CHLORIDE 0.9% 50 ML IV PRN (14:03)
[2020-12-20] MEDS ORDERED: SOD PHOSPHATE/SOD BIPHOSPHATE ENEMA 132 ML BTL PR PRN (14:03)
[2020-12-20] MEDS ORDERED: DO NOT ADMINISTER FLU VACCINE PRN (14:03)
[2020-12-20] MEDS ORDERED: PHARMACY GLYCEMIC MGMT CONSULT PRN (14:26)
--- NOTE | 2020-12-20 14:29 | Fluoroscopy Report ---
FL lumbar spine 2-3V CLINICAL HISTORY: L3-4 REMOVE HARDWARE/L2-3 DECOMPRESSION/FUSION COMPARISON STUDY: January 07, 2018 FLUOROSCOPY TIME: 8 seconds. NUMBER OF FLUOROSCOPIC IMAGES: 2 FINDINGS: 2 intraoperative fluoroscopic images of the lumbar spine are presented for review. Stable postlaminec anisa changes involving L3-L4, L4-5 and L5-S1 level with interval placement of additional transpedicul ar screws and metallic plate within S1 level. Redemonstration of L4 and L5 transpedicular screws con necting by metallic plates. Orthopedic hardware appears intact. IMPRESSION: Intraoperative images of spinal fusion as detailed above. ACT 112: Negative or not required by law. The above report was generated using voice recognition software. It may contain grammatical, syntax o r spelling errors. Electronically signed by: Lizette Blackmon DO 12/20/2020 2:28 PM
[2020-12-20] MEDS ORDERED: GLUCOSE 10 TABS/TUBE PO PRN (14:30)
[2020-12-20] MEDS ORDERED: GLUCOSE 40% GEL 15 GM TUBE PO PRN (14:30)
[2020-12-20] MEDS ORDERED: NovoLIN-N (NPH) PER UNIT CHARGE SQ ONE (14:30)
[2020-12-20] MEDS ORDERED: GLUCAGON FOR INJ 1 MG VIAL IM PRN (14:30)
[2020-12-20] MEDS ORDERED: INSULIN ASPART 100 UNITS/ML 3 ML PEN SC ONE (14:30)
[2020-12-20] MEDS ORDERED: CARBOHYDRATES FOR HYPOGLYCEMIA PO PRN (14:30)
[2020-12-20] MEDS ORDERED: DEXTROSE 50% 50 ML SYRINGE IV PRN (14:30)
--- NOTE | 2020-12-20 14:31 | Pharmacy Report ---
Pharmacy Glycemic Short Note 2 - Date of Service December 20, 2020 - Glycemic Short BSG Results (Last 24 hours): 12/20/20 12/20/20 08:50 12:11 POC Glucose 70 85 OUTPATIENT ANTIDIABETIC REGIMEN: * Amaryl 4 mg BIDM * Metformin 1 gm PO BID ASSESSMENT: * Ms Vega is an 85 y/o F with a PMH of T2DM on 2 oral medications well controlled who presents for spinal surgery. Blood sugars today are 70-85 mg/dL. * Upon review of patient's chart, she had previous spinal surgery in 2018 and blood sugars were elevated after dexamethasone administration. * Therefore, will utilize NPH 0.4 units/kg (25 units) plus Novolog weight-based stress of 3. * Hold oral agents. PLAN FOR INPATIENT GLYCEMIC CONTROL: * Hold outpatient oral diabetes medications * Basal insulin * NPH 25 units SQ x 1 * Bolus insulin * NovoLog per scale ACHS or Q6hrs while NPO * Goal Range: Low 110 mg/dL - High 140 mg/dL * Correction Factor: 25 mg/dL/unit * Nutritional / Prandial insulin per carb ratio of 1 unit per 8 grams CHO consumed
--- NOTE | 2020-12-20 15:08 | Hospitalist Consultation ---
Date of Consultation December 20, 2020 Assessment & Plan (1) Lumbar stenosis with neurogenic claudication: Mrs. Vega is an 85 year old female with a history of Moderate Aortic Stenosis, PAD, Cerebrovascular Disease, carotid Artery Plaque, Infrarenal AAA, Type 2 Diabetes Mellitus, Hypertension, Hyperlipidemia, Hyperparathyroidism, and Lumbar Spinal Stenosis s/p L2-L3 Decompression and Fusion and Removal of L3-L4 Hardware earlier today with Dr. Jones. Patient is being seen in room 388-2 and she offers no complaints. She states that she "has no pain at all". She denies any pain at the surgical site, she denies any pain in her legs. She denies any post-op nausea or vomiting. She further denies any chest pain or discomfort, or any shortness of breath. She tolerated her surgical procedure and has not had any complications. Patient is hemodynamically stable and neurologically intact following her surgery today. 1. Pain management as per Dr. Jones. 2. DVT prophylaxis with compression stockings, SCD's, early ambulation. 3. Physical therapy consulted. 4. Surgical drain management every 8 hours. (2) Moderate aortic stenosis: Echocardiogram 12/15/20: -- Normal LV size, wall motion, and systolic function. -- Mild concentric LVH. -- LVEF 65% to 70%. -- Moderate aortic valve stenosis. 1. Monitor daily I&O's, body weights. 2. Continue Atorvastatin 40 mg which can slow the progression of valvular heart disease. 3. Recommend surveillance Echocardiograms every 1 to 2 years. (3) Peripheral vascular disease: -- Continue [facility] statin therapy. -- Continue Aspirin 81 mg daily. (4) Aortic aneurysm: Infrarenal AAA has been stable by report. -- Continue Lisinopril 20 mg daily. -- Consider adding a beta sajan. -- Continue surveillance visits. (5) Type II diabetes mellitus: 1. BSG checks qAC and HS. 2. Insulin has been ordered. 3. Resume Metformin and Glimepiride at discharge. (6) Benign essential hypertension: -- Continue Lisinopril 20 mg daily. (7) Mixed hyperlipidemia: -- Continue Atorvastatin 40 mg daily. Supervising Physician Co-Signing Physician Notes Discussed with SHIV, reviewed his documentation. Agree with note above. Patient is status post surgery with Dr. Jones, our service was consulted for medical management. Plan to continue medications as outlined above. We will continue to follow as needed for further issues. Thank you very much for the consult. History of Present Illness Reason for Consultation: -- Post-op Medical Management. Requesting Physician: Carmelo Jones DO Attending Physician: Jovanni Bunch DO History of Present Illness Mrs. Vega is an 85 year old female with a history of Moderate Aortic Stenosis, PAD, Cerebrovascular Disease, carotid Artery Plaque, Type 2 Diabetes Mellitus, Hypertension, Hyperlipidemia, Hyperparathyroidism, and Lumbar Spinal Stenosis s/p L2-L3 Decompression and Fusion and Removal of L3-L4 Hardware earlier today with Dr. Jones. [facility] Hospitalists were consulted for Post-op Medical Management. Mrs. Vega is being seen in room 388-2 and she offers no complaints. She states that she "has no pain at all". She denies any pain at the surgical site, she denies any pain in her legs. She denies any post-op nausea or vomiting. She further denies any chest pain or discomfort, or any shortness of breath. She tolerated her surgical procedure and has not had any complications. Patient does have a history of short-term memory loss and she is hard of hearing. Allergies Allergy/AdvReac Type Severity Reaction Status Date / Time nifedipine AdvReac Unknown pt states Verified 12/20/20 08:35 unable to tolerate-does not remember what occurred Home Medications Medication Instructions Recorded Confirmed Type blood-glucose meter #1 ea 01/31/19 12/08/20 History blood sugar diagnostic #50 ea 07/31/19 12/08/20 Rx glimepiride 4 mg tablet 4 mg PO BID #180 tab 02/09/20 12/20/20 Rx metformin 1,000 mg tablet 1,000 mg PO BID #180 tab 02/11/20 12/20/20 Rx aspirin [Aspir-81] 81 mg PO HS 12/01/20 12/20/20 History atorvastatin 40 mg PO QAM 12/01/20 12/20/20 History lisinopril 20 mg PO QAM 12/01/20 12/20/20 History magnesium oxide 500 mg capsule 500 mg PO BID #60 cap 12/08/20 12/20/20 Rx cinacalcet 30 mg tablet 30 mg PO BID 5 Days #10 tab 12/14/20 12/20/20 Rx Patient History Medical History (Updated 12/20/20 @ 15:27 by Sravan Herring PA-C) Aortic aneurysm Stable per patient - follows with PCP US AAA 07/08/20= "No significant change in an infrarenal abdominal aortic aneurysm, measuring 3.1 cm." Aortic stenosis Mild per 04/2019 ECHO = MICHELLE 1.5cm2; AV mean gradient= 11.3 mmHg; AV max velocity= 2.28m/s No segment producer Aortic valve sclerosis Benign essential hypertension Carotid artery stenosis Per 04/17/19 carotid doppler: <50% stenosis to bilateral ICAs, >50% stenosis to left ECA Cerebral ischemia Hyperparathyroidism Follows with endo Hypomagnesemia Lumbar radicular pain Extensive epidural fibrosis Lumbar stenosis with neurogenic claudication Mixed hyperlipidemia Peripheral vascular disease Postlaminectomy syndrome of lumbosacral region Short-term memory loss Type II diabetes mellitus Glucose controlled per patient Surgical History History of cataract surgery R/L History of colonoscopy History of fusion of lumbar spine lumbar vertebral fusion History of hysterectomy History of hysterectomy total with unilateral removal of ovary History of laparoscopic cholecystectomy History of surgical fusion joint sacroiliac joint fusion History of tonsillectomy History of umbilical hernia repair Family History Father Myocardial infarction Unknown Ovarian cancer granddaughter Daughter Thyroid cancer Malignant neoplasm of kidney Mother Diabetes Brother Diabetes Denies family history of Prostate cancer Breast cancer Colorectal cancer Social History Smoking Status: Never smoker Second Hand Exposure: No; Do You Dip or Chew Tobacco: No; Hx Alcohol Use: No Hx Substance Use: No Preferred Language: [place] Communication Ability: Effective Visual Impairment: No Limitations Hearing Ability: Use of Hearing Aid [employer]er Required: No Beliefs That Will Affect Care: None marital status: Current Living Situation: Spouse current occupational status: retired Other Information That Helps Us Care for You: No Feels Safe at Home: Yes Safety Concerns: Feels Safe At This Time Childhood Exposure to Second-Hand Smoke: Yes caffeine: No during the past year weight has: remained stable Dental Care, Regularly: Yes Physical Activity Frequency: 3-4 Times per Week Seatbelt Use: always Sunscreen Use: Yes Assistive Devices: Walker Assistive Devices Comment: CAPPED FRONT UPPER TOOTH Review of Systems Review of Systems: All systems reviewed & are unremarkable except as noted in Subjective Physical Exam Physical Exam: GENERAL: Patient in no acute distress. HEENT: Head is atraumatic, normocephalic. EOM's intact. Facies symmetric. No perioral cyanosis. NECK: No JVD. JVP is not elevated. Carotid upstrokes are + 2 bilaterally. Transmitted murmur vs bruit in the right carotid artery. CHEST/LUNGS: Clear to auscultation throughout all lung melchor. No wheezes, rales, or crackles. CVS: S1 and S2 are regular with a grade 3/6 crescendo-decrescendo basal systolic murmur that radiates to the left sternal border, apex, and right carotid artery. No obvious diastolic murmurs. No gallops or rubs. PMI is nondisplaced. No lifts, heaves, or thrills. No abdominal aortic or renal bruits. ABDOMINAL EXAM: Bowel sounds are present. No masses, organomegaly, or tenderness. Levy catheter in place. EXTREMITIES: No clubbing or cyanosis. No edema. Intact radial pulses bilaterally. NEUROLOGIC EXAM: Patient is awake, alert, and oriented. Pleasant and cooperative. Answers questions appropriately. Speech is clear. Hard of hearing. Sensation intact to light touch over bilateral lower extremities. Results & Data Results & Data ([facility]) Vital Signs (Past 12 Hours) Vital Signs Temp Pulse Pulse Resp BP BP Pulse Ox 12/20/20 14:36 75 16 118/62 94 12/20/20 14:17 36.4 C L 74 14 123/77 93 12/20/20 13:44 36.6 C 80 16 123/77 98 12/20/20 13:15 72 14 131/60 96 12/20/20 13:00 74 14 129/64 97 12/20/20 12:50 70 14 125/59 L 98 12/20/20 12:40 36.3 C L 70 14 134/59 L 100 12/20/20 12:30 74 14 136/56 L 99 12/20/20 12:20 79 16 144/63 H 100 12/20/20 12:10 90 16 127/64 100 12/20/20 12:07 36.2 C L 97 H 16 130/62 100 12/20/20 08:40 36.6 C 57 L 20 145/84 H 96 Laboratory Results Laboratory Results - last 24 hr 12/20/20 12/20/20 12/20/20 08:50 12:11 14:40 POC Glucose 70 85 130 H COVID-19 Eval Order SARS-CoV-2, RNA, NAAT 12/20/20 12/20/20 Unknown Unknown POC Glucose COVID-19 Eval Order Covid19 [facility] SARS-CoV-2, RNA, NAAT NEGATIVE Diagnostic Findings L-Spine Fluoroscopy 12/20/20: -- 2 intraoperative fluoroscopic images of the lumbar spine are presented for review. -- Stable postlaminectomy changes involving L3-L4, L4-5 and L5-S1 level with interval placement of additional transpedicular screws and metallic plate within S1 level. -- Redemonstration of L4 and L5 transpedicular screws connecting by metallic plates. -- Orthopedic hardware appears intact. IMPRESSION: -- Intraoperative images of spinal fusion as detailed above. Medications Administered Medications blood-glucose meter #1 ea 01/31/19 [History Confirmed 12/08/20] blood sugar diagnostic #50 ea 07/31/19 [Rx Confirmed 12/08/20] glimepiride 4 mg tablet 4 mg PO BID #180 tab 02/09/20 [Rx Confirmed 12/20/20] metformin 1,000 mg tablet 1,000 mg PO BID #180 tab 02/11/20 [Rx Confirmed ] aspirin [Aspir-81] 81 mg PO HS 12/01/20 [History Confirmed 12/20/20] atorvastatin 40 mg PO QAM 12/01/20 [History Confirmed 12/20/20] lisinopril 20 mg PO QAM 12/01/20 [History Confirmed 12/20/20] magnesium oxide 500 mg capsule 500 mg PO BID #60 cap 12/08/20 [Rx Confirmed 12/20/20] cinacalcet 30 mg tablet 30 mg PO BID 5 Days #10 tab 12/14/20 [Rx Confirmed 12/20/20] Home Medications Acetaminophen (Acetaminophen 500 Mg Tab) 1,000 mg PO PREOP HERLINDA Stop: 12/21/20 18:00 Last Admin: 12/20/20 08:51 Dose: 1,000 mg Documented by: Acetaminophen (Acetaminophen 500 Mg Tab) 1,000 mg PO Q8H PRN PRN Reason: MILD Pain Scale 1,2,3 & Pre PT Stop: 01/19/21 14:02 Al Hydrox/Mg Hydrox/Simethicone (Aluminum/Magnesium Susp 30 Ml Udc) 30 ml PO Q6H PRN PRN Reason: Dyspepsia Stop: 01/19/21 14:02 Aspirin (Aspirin 81 Mg Ectab) 81 mg PO HS HERLINDA Stop: 01/19/21 20:59 Atorvastatin Calcium (Atorvastatin 40 Mg Tab) 40 mg PO QAM HERLINDA Stop: 01/20/21 08:59 Bisacodyl (Bisacodyl 10 Mg Supp) [address] DAILY PRN PRN Reason: Constipation Stop: 01/21/21 11:48 Celecoxib (Celebrex 200 Mg Cap) 200 mg PO PREOP HERLINDA Stop: 12/21/20 18:00 Last Admin: 12/20/20 08:51 Dose: 200 mg Documented by: Cinacalcet (Cinacalcet Hcl 30 Mg Tab) 30 mg PO BID HERLINDA Stop: 01/19/21 20:59 Dextrose (Dextrose 50% 50 Ml Syringe) 25 - 50 ml IV UD PRN; Protocol PRN Reason: Hypoglycemia Protocol Stop: 01/19/21 14:29 Diphenhydramine HCl (Diphenhydramine Capsule 25 Mg Cap) 25 mg PO Q6H PRN PRN Reason: Allergic Rhinitis/Insomnia Stop: 01/19/21 14:02 Famotidine (Famotidine 20 Mg Tab) 20 mg PO Q12H PRN PRN Reason: Dyspepsia Stop: 01/19/21 14:02 Gabapentin (Gabapentin 300 Mg Cap) 300 mg PO PREOP HERLINDA Stop: 12/21/20 18:00 Last Admin: 12/20/20 08:51 Dose: 300 mg Documented by: Glucagon (Glucagon For Inj 1 Mg Vial) 1 mg IM UD PRN; Protocol PRN Reason: Hypoglycemia Protocol Stop: 01/19/21 14:29 Glucose (Glucose 40% Gel 15 Gm Tube) 15 - 30 gm PO UD PRN; Protocol PRN Reason: Hypoglycemia Protocol Stop: 01/19/21 14:29 Glucose (Glucose 10 Tabs/Tube) 4 - 8 tabs PO UD PRN; Protocol PRN Reason: Hypoglycemia Protocol Stop: 01/19/21 14:29 Hydromorphone HCl (Hydromorphone Inj 0.5 Mg/0.5 Ml Syr) 0.5 mg IV Q3H PRN PRN Reason: MOD pain (scale 4-6) & Pre PT Stop: 01/03/21 14:02 Hydromorphone HCl (Hydromorphone Inj 1 Mg/Ml Syringe) 1 mg IV Q3H PRN PRN Reason: severe pain (scale 7-10) Stop: 01/03/21 14:02 Hydroxyzine HCl (Hydroxyzine Hcl 25 Mg Tab) 25 mg PO Q8H PRN PRN Reason: Anxiety Stop: 01/19/21 14:02 Cefazolin Sodium (Ancef 1000mg) 1,000 mg in 7.5 mls @ 2.5 mls/min IV PREOP HERLINDA; Protocol Stop: 12/21/20 18:00 Lactated Ringer's (Lr) 1,000 mls @ 15 mls/hr IV .Q24H HERLINDA Stop: 12/22/20 05:59 Last Infusion: 12/20/20 10:14 Dose: Infused Documented by: Sodium Chloride (Nss 1000ml) 1,000 mls @ 100 mls/hr IV .Q10H HERLINDA Stop: 01/19/21 14:02 Last Admin: 12/20/20 14:53 Dose: 100 mls/hr Documented by: Promethazine HCl 12.5 mg/ (Sodium Chloride) 50.5 mls @ 202 mls/hr IV Q6H PRN PRN Reason: Nausea &/or Vomiting Stop: 01/19/21 14:02 Acetaminophen (Ofirmev) 1,000 mg in 100 mls @ 400 mls/hr IV Q8H PRN PRN Reason: Pain Rating 1-3 & Pre PT Stop: 12/21/20 11:49 Lorazepam (Ativan) 0.5 mg in 1 mls @ 1 mls/min IV Q8H PRN PRN Reason: Sedation/Anxiety Stop: 01/19/21 14:02 Cefazolin Sodium (Ancef 1000mg) 1,000 mg in 7.5 mls @ 2.5 mls/min IV Q8H HERLINDA; Protocol Stop: 12/21/20 04:02 Influenza Virus Vaccine Quadrival (Do Not Administer Flu Vaccine) 1 ea N/A PRN PRN PRN Reason: Notification Stop: 01/19/21 14:02 Insulin Aspart (Insulin Aspart 100 Units/Ml 3 Ml Pen) 0 units SC ACHS [facility] Stop: 01/19/21 16:29 Insulin Aspart (Insulin Aspart 100 Units/Ml 3 Ml Pen) 0 units SC 0000,[id number] [facility] Stop: 12/21/20 04:01 Lisinopril (Lisinopril 20 Mg Tab) 20 mg PO QAM HERLINDA Stop: 01/20/21 08:59 Lorazepam (Lorazepam 0.5 Mg Tab) 0.5 mg PO Q8H PRN PRN Reason: sedation/anxiety Stop: 01/19/21 14:02 Magnesium Hydroxide (Magnesium Hydroxide Susp 30 Ml Udc) 30 ml PO Q24H PRN PRN Reason: Constipation Stop: 01/19/21 14:02 Magnesium Oxide (Magnesium Oxide 400 Mg Tab) 400 mg PO BID [facility] Stop: 01/19/21 20:59 Metoclopramide HCl (Metoclopramide Hcl Inj 5 Mg/Ml 2 Ml Vial) 10 mg IV Q6H PRN PRN Reason: Nausea &/or Vomiting Stop: 01/19/21 14:02 Miscellaneous (Carbohydrates For Hypoglycemia ) 15 - 30 gm PO UD PRN PRN Reason: Hypoglycemia Treatment Stop: 01/19/21 14:29 Miscellaneous Information (Pharmacy Glycemic Mgmt Consult) 1 ea N/A UD PRN PRN Reason: Consult Stop: 01/19/21 14:25 Naloxone HCl (Naloxone Hcl 0.4 Mg/1 Ml Vial/Carp) 0.1 mg IV Q5M PRN PRN Reason: Oversedation/respiratory dep Stop: 01/19/21 14:02 Ondansetron HCl (Ondansetron Inj 2 Mg/Ml 2 Ml Vial) 4 mg IV Q6H PRN PRN Reason: Nausea &/or Vomiting Stop: 01/19/21 14:02 Ondansetron HCl (Ondansetron 4 Mg Od Tab) 4 mg PO Q6H PRN PRN Reason: Nausea Stop: 01/19/21 14:02 Oxycodone HCl (Oxycodone Hcl Ir 5 Mg Tab (Immediate Release)) 5 - 10 mg PO Q4H PRN PRN Reason: Pain & Pre PT Stop: 01/03/21 14:02 Pneumococcal Polyvalent Vaccine (Do Not Administer Pneumococcal Vaccine) 1 ea N/A PRN PRN PRN Reason: Notification Stop: 01/19/21 14:02 Polyethylene Glycol (Polyethylene (Miralax) 17 Gm Pack) 17 gm PO Q6 HERLINDA Stop: 01/20/21 05:59 Senna/Docusate Sodium (Docusate Sodium/Senna 50/8.6mg Tab) 2 tab PO HS HERLINDA Stop: 01/19/21 20:59 Sodium Biphosphate/Sodium Phosphate (Sod Phosphate/Sod Biphosphate Enema 132 Ml Btl) [address] ONE PRN PRN Reason: Constipation Stop: 01/19/21 14:02 Tramadol HCl (Tramadol Hcl 50 Mg Tablet) 50 - 100 mg PO Q4H PRN PRN Reason: Moderate-Severe pain & Pre PT Stop: 01/19/21 14:02 PG Care Time/CCT Total # of Minutes Spent Total Time Spent with Patient: Total time spent is greater than 50% in coordination of care (as documented) at patient's floor/unit and/or counseling patient:40 Coding Level of Care Code 63187 Inpt Consult Level 4 Diagnoses Lumbar stenosis with neurogenic claudication M48.062 Moderate aortic stenosis I35.0 Peripheral vascular disease I73.9 Aortic aneurysm I71.9 Type II diabetes mellitus E11.9 Benign essential hypertension I10 Mixed hyperlipidemia E78.2 Time Spent (min) 55
[2020-12-20] MEDS: INSULIN ASPART 100 UNITS/ML 3 ML PEN SC SCH ×2 (18:19→21:04)
[2020-12-20] MEDS ORDERED: COUGH DROP (SUGAR FREE) LOZ 24 LOZ/1 BOX BUCCAL ONE (20:33)
[2020-12-20] MEDS: ASPIRIN 81 MG ECTAB PO SCH (20:34)
[2020-12-20] MEDS: ceFAZolin 1000MG 1,000 MG/7.5 ML SYR IV SCH (20:34)
[2020-12-20] MEDS: CINACALCET HCL 30 MG TAB PO SCH (20:36)
[2020-12-20] MEDS: DOCUSATE SODIUM/SENNA 50/8.6MG TAB PO SCH (20:36)
[2020-12-20] MEDS: MAGNESIUM OXIDE 400 MG TAB PO SCH (20:36)
[2020-12-20] MEDS ORDERED: GLIMEPIRIDE 2 MG TAB PO SCH (21:00)
[2020-12-21] MEDS: INSULIN ASPART 100 UNITS/ML 3 ML PEN SC SCH ×6 (00:15→21:47)
[2020-12-21] MEDS: ceFAZolin 1000MG 1,000 MG/7.5 ML SYR IV SCH (05:05)
[2020-12-21] MEDS ORDERED: ACETAMINOPHEN 500 MG TAB PO SCH (06:00)
[2020-12-21] MEDS ORDERED: ceFAZolin 1000MG 1,000 MG/7.5 ML SYR IV SCH (06:00)
[2020-12-21] MEDS ORDERED: GABAPENTIN 300 MG CAP PO SCH (06:00)
[2020-12-21] MEDS ORDERED: LR 15ML/HR IV SCH (06:00)
[2020-12-21] MEDS ORDERED: CeleBREX 200 MG CAP PO SCH (06:00)
[2020-12-21 06:07] LABS: Hematocrit (blood only) 32.6 % (37-47); Hemoglobin 10.8 g/dL (12.0-16.0); Immature Granulocytes # (auto) 0.02 K/uL (0.00-0.02); Immature Granulocytes % (auto) 0.2 %; Lymphocytes # (auto) 1.37 K/uL (1.2-3.4); Lymphocytes % (auto) 10.5 %; Mean Corpuscular Hemoglobin 31.5 pg (25-34); Mean Corpuscular Hgb Conc 33.1 g/dL (32-36); Mean Platelet Volume 10.9 fL (7.4-10.4); Monocytes # (auto) 0.97 K/uL (0.11-0.59); Monocytes % (auto) 7.5 %; Neutrophils # (auto) 10.64 K/uL (1.4-6.5); Neutrophils % (auto) 81.8 %; Platelet Count 228 K/uL (130-400); RDW Coefficient of Variation 12.8 % (11.5-14.5); RDW Standard Deviation 45.1 fL (36.4-46.3); Red Blood Count 3.43 M/uL (4.2-5.4)
[2020-12-21] MEDS: POLYETHYLENE (MIRALAX) 17 GM PACK PO SCH ×4 (06:10→22:56)
[2020-12-21 06:42] LABS: Calcium 7.8 mg/dl (8.5-10.1); Creatinine Clr Calc Pharmacy 35.4 ml/min; Est GFR (African American) 54.4 ml/min; Est GFR (Non-African American) 46.9 ml/min; Potassium 4.5 mmol/L (3.5-5.1)
[2020-12-21] MEDS: ATORVASTATIN 40 MG TAB PO SCH (09:18)
[2020-12-21] MEDS: lisinopril 20 MG TAB PO SCH (09:19)
[2020-12-21] MEDS: CINACALCET HCL 30 MG TAB PO SCH ×2 (09:19→21:03)
[2020-12-21] MEDS: traMADol HCL 50 MG TABLET PO PRN (09:20)
[2020-12-21] MEDS: MAGNESIUM OXIDE 400 MG TAB PO SCH ×2 (09:20→21:02)
--- NOTE | 2020-12-21 09:29 | Pharmacy Report ---
Pharmacy Glycemic Short Note 2 - Date of Service December 21, 2020 - Glycemic Short BSG Results (Last 24 hours): 12/20/20 12/20/20 12/20/20 12:11 14:40 17:03 Glucose POC Glucose 85 130 H 253 H 12/20/20 12/21/20 12/21/20 20:50 00:04 03:51 Glucose POC Glucose 242 H 208 H 133 H 12/21/20 12/21/20 05:30 08:00 Glucose 117 H POC Glucose 109 H OUTPATIENT ANTIDIABETIC REGIMEN: * Amaryl 4 mg BIDM * Metformin 1 gm PO BID ASSESSMENT: 12/21 * Pt has received 43 units of insulin over the past 24hrs * 25 units of basal with NPH * 18 units of bolus with NovoLog * BSGs [id number] mg/dl * Hyperglycemia post-operatively yesterday d.t dexamethasone 8mg IV given intraoperatively. NPH ordered/given when patient arrived to the floor but ideally these should be given together to prevent hyperglycemia * No further steroids today - no NPH needed today * hyperglycemic effects of DXM should be diminishing today - will empirically loosen CF/CR * Pt tolerating PO; will resume metformin this evening and dc carb ratio 12/20 * Ms Vega is an 85 y/o F with a PMH of T2DM on 2 oral medications well controlled who presents for spinal surgery. Blood sugars today are 70-85 mg /dL. * Upon review of patient's chart, she had previous spinal surgery in 2018 and blood sugars were elevated after dexamethasone administration. * Therefore, will utilize NPH 0.4 units/kg (25 units) plus Novolog weight-based stress of 3. * Hold oral agents. PLAN FOR INPATIENT GLYCEMIC CONTROL: * Hold outpatient oral diabetes medications * Basal insulin * none needed today * Bolus insulin: loosen parameters and DXM hyperglycemia should be wearing off today * NovoLog per scale ACHS or Q6hrs while NPO * Goal Range: Low 110 mg/dL - High 140 mg/dL * Correction Factor: 30 mg/dL/unit * Nutritional / Prandial insulin per carb ratio of 1 unit per 9 grams CHO consumed
--- NOTE | 2020-12-21 09:37 | Orthopedic Progress Note ---
Date of Service December 21, 2020 Assessment & Plan (1) Lumbar stenosis with neurogenic claudication: Admission and Anticipated Discharge Date Admission Date: December 20, 2020 At this time we will continue physical therapy monitor [facility] output anticipate discharge home later after this week. Subjective Back pain is controlled leg pain improved Physical Exam Physical Exam: Patient is sitting up in bed. She is good strength testing. Appears comfortable. Results & Data ([facility]) Vital Signs (Past 12 Hours) Vital Signs Temp Pulse Resp BP Pulse Ox 12/21/20 07:40 36.7 C 75 16 114/76 96 12/21/20 03:51 36.6 C 77 18 112/52 L 93 12/20/20 22:16 36.6 C 83 18 110/66 92
--- NOTE | 2020-12-21 13:25 | Hospitalist Progress Note ---
Date of Service December 21, 2020 Assessment & Plan (1) Lumbar stenosis with neurogenic claudication: Mrs. Vega is an 85 year old female with a history of Moderate Aortic Stenosis, PAD, Cerebrovascular Disease, carotid Artery Plaque, Infrarenal AAA, Type 2 Diabetes Mellitus, Hypertension, Hyperlipidemia, Hyperparathyroidism, and Lumbar Spinal Stenosis s/p L2-L3 Decompression and Fusion and Removal of L3-L4 Hardware [12/20] with Dr. Jones. Post op labs reviewed, vital signs stable. Pain management per Dr Jones (2) Moderate aortic stenosis: No symptoms from this Echocardiogram 12/15/20: -- Normal LV size, wall motion, and systolic function. -- Mild concentric LVH. -- LVEF 65% to 70%. -- Moderate aortic valve stenosis. 1. Monitor daily I&O's, body weights. 2. Continue Atorvastatin 40 mg which can slow the progression of valvular heart disease. 3. Recommend surveillance Echocardiograms every 1 to 2 years. (3) Peripheral vascular disease: No symptoms from this -- Continue [facility] statin therapy. -- Continue Aspirin 81 mg daily. (4) Aortic aneurysm: Infrarenal AAA has been stable by report. -- Continue Lisinopril 20 mg daily. -- Continue surveillance visits. (5) Type II diabetes mellitus: Hba1C on pre-op labs 6.1 1. BSG checks qAC and HS. 2. Insulin has been ordered. 3. Resume Metformin and Glimepiride at discharge. (6) Benign essential hypertension: -- Continue Lisinopril 20 mg daily. (7) Mixed hyperlipidemia: -- Continue Atorvastatin 40 mg daily. Thank you for the consult. Medicine will sign off at this time. Please contact for further advice if needed. Admission and Anticipated Discharge Date Admission Date: December 20, 2020 Subjective Severity back pain 9/10 on moving. Radiation down both legs and groins L > R similar to pre-surgery levels but back pain much worse. No fevers, chills. No abdominal pain, nausea or vomiting. Review of Systems Review of Systems: All systems reviewed & are unremarkable except as noted in HPI & below Physical Exam Constitutional: WD/WN, vitals as above Eyes: + anicteric sclerae; normal pupil size Respiratory: normal respiratory effort, lungs clear to auscultation Cardiovascular: Rate/Rhythm: regular rate and regular rhythm Heart Sounds: + murmur (systolic throughout, loudest LUSB) Extremities: normal capillary refill and + pedal edema (trace ankles b/l equal); no calf tenderness Gastrointestinal (Abdomen): normal bowel sounds, soft, nontender, no hepatosplenomegaly Skin: no rashes, warm and dry Psychiatric: A+Ox3, euthymic affect Results & Data Results & Data ([facility]) Vital Signs (Past 12 Hours) Vital Signs Temp Pulse Resp BP Pulse Ox 12/21/20 07:40 36.7 C 75 16 114/76 96 12/21/20 03:51 36.6 C 77 18 112/52 L 93 PG Care Time/CCT Total # of Minutes Spent Total Time Spent with Patient: Total time spent is greater than 50% in coordination of care (as documented) at patient's floor/unit and/or counseling patient: Coding Level of Care Code 28600 Subseq Hosp Care Lvl 1 Diagnoses Lumbar stenosis with neurogenic claudication M48.062 Moderate aortic stenosis I35.0 Peripheral vascular disease I73.9 Aortic aneurysm I71.9 Type II diabetes mellitus E11.9 Benign essential hypertension I10 Mixed hyperlipidemia E78.2
[2020-12-21] MEDS: oxyCODONE HCL IR 5 MG TAB (IMMEDIATE RELEASE) PO PRN (14:39)
[2020-12-21] MEDS: metFORMIN HCL 500 MG TAB PO SCH (17:00)
[2020-12-21] MEDS: HYDROmorphone INJ 1 MG/ML SYRINGE IV PRN (21:01)
[2020-12-21] MEDS: ONDANSETRON INJ 2 MG/ML 2 ML VIAL IV PRN (21:01)
[2020-12-21] MEDS: DOCUSATE SODIUM/SENNA 50/8.6MG TAB PO SCH (21:02)
[2020-12-21] MEDS: ASPIRIN 81 MG ECTAB PO SCH (21:03)
[2020-12-22] MEDS: POLYETHYLENE (MIRALAX) 17 GM PACK PO SCH (05:27)
[2020-12-22] MEDS: oxyCODONE HCL IR 5 MG TAB (IMMEDIATE RELEASE) PO PRN ×2 (08:28→15:22)
[2020-12-22] MEDS: metFORMIN HCL 500 MG TAB PO SCH ×2 (08:29→17:01)
[2020-12-22] MEDS: ATORVASTATIN 40 MG TAB PO SCH (09:12)
[2020-12-22] MEDS: CINACALCET HCL 30 MG TAB PO SCH ×2 (09:13→19:55)
[2020-12-22] MEDS: MAGNESIUM OXIDE 400 MG TAB PO SCH ×2 (09:13→19:55)
[2020-12-22] MEDS: lisinopril 20 MG TAB PO SCH (09:14)
[2020-12-22] MEDS: INSULIN ASPART 100 UNITS/ML 3 ML PEN SC SCH ×4 (09:17→21:45)
--- NOTE | 2020-12-22 10:14 | Orthopedic Progress Note ---
Date of Service December 22, 2020 Assessment & Plan (1) Lumbar stenosis with neurogenic claudication: Admission and Anticipated Discharge Date Admission Date: December 20, 2020 At this time continue physical therapy monitor [facility] output. Anticipate discharge home towards latter half of this week. Subjective Patient complains of back pain. She does not tolerate narcotic medications well. She is in the chair at the bedside. Physical Exam Physical Exam: On exam she has a chair at the bedside is good strength testing. Results & Data ([facility]) Vital Signs (Past 12 Hours) Vital Signs Temp Pulse Resp BP Pulse Ox 12/22/20 06:28 36.7 C 69 18 132/77 91 12/21/20 22:18 36.6 C 86 16 125/74 91
[2020-12-22] MEDS ORDERED: bisacodyL 10 MG SUPP PR PRN (11:49)
[2020-12-22] MEDS: DOCUSATE SODIUM/SENNA 50/8.6MG TAB PO SCH (19:54)
[2020-12-22] MEDS: ASPIRIN 81 MG ECTAB PO SCH (19:54)
[2020-12-22] MEDS: ONDANSETRON INJ 2 MG/ML 2 ML VIAL IV PRN (19:55)
[2020-12-22] MEDS: HYDROmorphone INJ 1 MG/ML SYRINGE IV PRN (19:56)
[2020-12-23] MEDS: oxyCODONE HCL IR 5 MG TAB (IMMEDIATE RELEASE) PO PRN ×4 (04:57→23:20)
[2020-12-23] MEDS: CINACALCET HCL 30 MG TAB PO SCH ×2 (07:34→19:35)
[2020-12-23] MEDS: MAGNESIUM OXIDE 400 MG TAB PO SCH ×2 (07:34→19:35)
[2020-12-23] MEDS: lisinopril 20 MG TAB PO SCH (07:35)
[2020-12-23] MEDS: metFORMIN HCL 500 MG TAB PO SCH ×2 (07:35→17:26)
[2020-12-23] MEDS: ATORVASTATIN 40 MG TAB PO SCH (07:35)
[2020-12-23] MEDS: INSULIN ASPART 100 UNITS/ML 3 ML PEN SC SCH ×4 (07:38→21:48)
--- NOTE | 2020-12-23 09:46 | Orthopedic Progress Note ---
Date of Service December 23, 2020 Assessment & Plan (1) Lumbar stenosis with neurogenic claudication: Admission and Anticipated Discharge Date Admission Date: December 20, 2020 This time continue physical therapy monitor [facility] output anticipate discharge home tomorrow. Subjective Back pain improving leg pain resolved. Physical Exam Physical Exam: Patient is in bed. She is good strength testing. Appears more comfortable today. Results & Data ([facility]) Vital Signs (Past 12 Hours) Vital Signs Temp Pulse Resp BP Pulse Ox 12/23/20 07:30 37.0 C 71 18 104/63 90 12/22/20 23:37 37.0 C 87 17 115/64 92
[2020-12-23] MEDS: traMADol HCL 50 MG TABLET PO PRN (13:24)
[2020-12-23] MEDS: DOCUSATE SODIUM/SENNA 50/8.6MG TAB PO SCH (19:34)
[2020-12-23] MEDS: ASPIRIN 81 MG ECTAB PO SCH (19:34)
[2020-12-24] MEDS ORDERED: LANTUS PER UNIT CHARGE SQ ONE (08:30)
[2020-12-24] MEDS: lisinopril 20 MG TAB PO SCH (08:45)
[2020-12-24] MEDS: MAGNESIUM OXIDE 400 MG TAB PO SCH (08:45)
[2020-12-24] MEDS: metFORMIN HCL 500 MG TAB PO SCH (08:45)
[2020-12-24] MEDS: ATORVASTATIN 40 MG TAB PO SCH (08:46)
[2020-12-24] MEDS: CINACALCET HCL 30 MG TAB PO SCH (08:46)
[2020-12-24] MEDS: INSULIN ASPART 100 UNITS/ML 3 ML PEN SC SCH (08:51)
--- NOTE | 2020-12-24 09:46 | Pharmacy Report ---
Pharmacy Glycemic Short Note 2 - Date of Service December 24, 2020 - Glycemic Short BSG Results (Last 24 hours): 12/23/20 12/23/20 12/23/20 12:23 17:09 20:40 POC Glucose 94 153 H 146 H 12/24/20 08:04 POC Glucose 173 H OUTPATIENT ANTIDIABETIC REGIMEN: * Amaryl 4 mg BIDM * Metformin 1 gm PO BID * HbA1c = 6.1% (12/07/20) ASSESSMENT: 12/24 * Barbara received a total of 9 units of insulin yesterday * All insulin was Novolog and patient remained on Metformin * BSGs were acceptable: [id number] mg/dL * Fasting BSG continued to increase to 173 mg/dL this AM * Will give a one time dose of Lantus 12 units today * Will increase Metformin to home dose of 1000 mg PO BIDM starting this evening * Will remove carbohydrate ratio since patient will be on increased dose of Metformin * May need to tighten correction factor if hyperglycemia persists PLAN FOR INPATIENT GLYCEMIC CONTROL: * Increase Metformin to 1000 mg PO BIDM (starting this evening) * Basal insulin * Lantus 12 units SC x 1 * Bolus insulin * NovoLog per scale ACHS or Q6hrs while NPO * Goal Range: Low 110 mg/dL - High 140 mg/dL * Correction Factor: 35 mg/dL/unit * No carbohydrate ratio PLAN FOR DISCHARGE: * HbA1c is within goal range for this patient. As long as she is not experiencing any hypoglycemia at home, may continue with Amaryl and Metformin upon discharge.
--- NOTE | 2020-12-24 13:30 | Discharge Summary ---
Date of Service December 24, 2020 Admission HPI Per Admitting Provider This is a 85-year-old female presents with worsening back and bilateral leg pain. Failing since course of nonoperative care is here for surgical invention. Principal Diagnosis Lumbar spinal stenosis with neurogenic claudication Discharge Data Allergies Allergy/AdvReac Type Severity Reaction Status Date / Time nifedipine AdvReac Unknown pt states Verified 12/20/20 08:35 unable to tolerate-does not remember what occurred Consultations 12/20/20 14:03 Consult Hospitalist Routine Procedures Performed Operation Date: 12/20/20 09:45 Actual Procedures p Spine: L2-L3 Decompression/Fusion,*Spinal Cord Monitoring* - Carmelo Jones DO s L3-L4 Hardware Removal - Carmelo Jnoes DO Ordered Studies 12/20/20 09:45 [place] lumbar spine 2-3V Routine Hospital Course (1) Lumbar stenosis with neurogenic claudication: Patient underwent lumbar decompression fusion trial exhausting orthopedic for postop labor postop day 1 she was up and ambulating progressed appropriately throughout the week pain becoming better controlled. LAWRENCE drain decreasing probably. Excellent strength testing. Subsequently discharged home with home health. Discharge orders instructions from the chart for further review. Total Time Total Time Spent Total Time Spent (In Minutes): 20 minutes Discharge Plan Discharge Items Patient Disposition: Home - Home Health Services Reason For Visit: Spinal Senosis,Lumbar Region with Neurogenic Mike Discharge Diagnosis: Lumbar spinal stenosis with neurogenic medication Activity: As commented below Non-emergency contact: Primary Care Provider Call non-emergency contact if: you have any medication questions Follow-up/Referrals: Adam Johnston MD [Primary Care Provider] - Diet: Regular Addtl Attending Provider Instructions: ACTIVITY RECOMMENDATIONS: SELF CARE INSTRUCTIONS AFTER THORACIC/LUMBAR FUSIONS 1. You may walk to your tolerance. It is good exercise for your legs and back. Expect some back and intermittent leg aches and pains. 2. You may perform "counter-top" level activities (make a sandwich, shirley with a project, etc.). 3. No bending or lifting of more than 10 pounds or back twisting of any nature (roll like a log when turning in bed). 4. You may ride in a car for 20-30 minutes at a time. No driving until after your first visit with your doctor. 5. Frequent changes of position and restricting sitting to 30 minutes at a time will help limit the amount of back spasms and stiffness you may experience. 6. You may discontinue the use of ambulatory aids (cane, crutches, etc.) once your strength and confidence allow. 7. You may railroad wheels and axles inspector the shower and let water strike your incision when you arrive home at least once daily. Do not take a tub bath, sit in a hot tub or go into a swimming pool until after your first recheck in the office. SPECIAL CARE INSTRUCTIONS: VERY IMPORTANT TO READ AND REVIEW A. Your surgical incision has been closed with a cosmetic suture under the skin that will dissolve in about 6 weeks. In 14 days, you can use a pair of clean scissors and cut the suture that is left outside of the skin at the ends of your incision. 1. The small skin tapes can be removed 7 days after surgery if they have not fallen off by that point. 2. You may keep the wound open to air as much as possible to promote healing after post-op day number 5 unless told otherwise by your doctor. 3. If you think the wound looks like it is becoming infected (redness or worsening drainage) and/or you are experiencing fever, chill or worsening back pain and muscle spasms, contact the office so that we may evaluate you as soon as possible. B. Complications are uncommon, but please contact us if you have any signs or symptoms of: 1. wound infection (fever higher than 102.5 degrees F, redness, separation of wound, drainage, or increasing pain from the incision) 2. blood clots in legs (pain, swelling, redness and warmth in legs) 3. urinary tract infection (fever higher than 102.5 degrees F, burning upon urination or increased frequency of urination) 4. nerve problems (inability to walk on your toes or heels, numbness, loss of bowel or bladder control) 5. any other symptoms that concern you C. Please call the office at if you have any concerns or questions about your operation or recovery. D. No smoking! Smoking drastically decreases the chance of a solid fusion. E. Do not take any anti-inflammatory medications (Indocin, Advil, Motrin, Aspirin, Naprosyn, etc.) as these may inhibit the chance of a solid fusion. Tylenol is okay to take for pain. MANAGING PAIN AFTER SPINAL SURGERY 1. Narcotic medication is intended for short-term use and will be provided for surgical pain. Surgical pain usually lasts for a period of 4-6 weeks. Narcotic medication includes Percocet, Vicodin, Darvocet, Tylenol #3 or Lortab. 2. Longer-term pain is more appropriately treated with non-narcotic medication such as Tylenol ES. 3. Muscle spasm is not appropriately treated with narcotics. Muscle relaxers such as Soma, Flexeril or Skelaxin can be used along with Tylenol ES. 4. Remember that we all live with some "aches and pains". This is not unusual or uncommon after an injury or as we get older. a. Back pain is expected and may include muscle spasms for 4 to 6 weeks after surgery. The pain should gradually improve. If the pain worsens for no apparent reason, please contact the office. b. Intermittent leg pain may also be experienced and should not be concerned about unless it worsens for no apparent reason. If so, please contact the office. 5. We will provide appropriate medication within the normal guidelines of their prescribed use. We will also be very cautious and aware of potential abuse and extended duration of patients' medication needs. a. Pain medications are for your comfort and to assist with sleep and rest so that the tissue can heal. They are not provided in order to return to normal activity and should not be used through the day. To do so or worsening pain at night can result from ongoing tissue damage and development of tolerance to the prescribed medicine. 6. Please allow 2-3 days to process refills. Prescriptions will not be mailed but must be picked up at the office. FOLLOW UP VISIT: Keep your scheduled follow-up appointment. Any questions, please call the office at . Pending Studies at Discharge: No Stand-Alone Forms: Medication Instructions, My [facility] [employer], Opioid Pain Management, Smoking Cessation Medications and DC Order Prescriptions: New tramadol 50 mg tablet 50 mg PO Q6H PRN (Reason: pain, moderate) Qty: 30 RF: 0 Continued (DME) OneTouch Ultra Blue Test Strip Strip See Dose Instructions .ROUTE .MEDSUPPLY Qty: 50 RF: 5 glimepiride 4 mg tablet 4 mg PO BID Qty: 180 RF: 3 metformin 1,000 mg tablet 1,000 mg PO BID Qty: 180 RF: 3 (DME) blood-glucose meter [OneTouch Ultra2 Meter] kit See Dose Instructions .ROUTE .MEDSUPPLY Qty: 1 RF: 0 magnesium oxide 500 mg capsule 500 mg PO BID Qty: 60 RF: 5 cinacalcet 30 mg tablet 30 mg PO BID 5 Days Qty: 10 RF: 0 atorvastatin 40 mg tablet 40 mg PO QAM RF: 0 lisinopril 20 mg tablet 20 mg PO QAM RF: 0 aspirin 81 mg Tablet,Delayed Release (Dr/Ec) 81 mg PO HS RF: 0 Discharge Orders: Discharge Order (Routine); Ordered 12/24/20 Ordered By: Carmelo Gil/Other Patient Handouts: How Your Back Works, Relieving Back Pain, Back Safety: Bending, Back Safety: Lifting, Back Safety: Pushing and Pulling, Back Safety: Sleeping Positions, Back Safety: Sitting, Back Safety: Standing, Back Safety: Turning, Self-Care for Low Back Pain, Understanding the Pain Response, Back Safety: Basics of Good Posture, Relieving Tension in Your Back, Back Safety: Poor Posture Hurts, Self Care Back Day, Taking Opioid Medicines Admission Data Admit Date/Time: 12/20/20 12:03 Attending Provider: Carmelo Jones Admit Provider: Carmelo Jones Primary Care Provider: Adam Johnston Other Providers: Edu Chau ; [facility] Other Interventions: Discharge Summary Assessment (RN) Last Done: 12/24/20 11:57
[2020-12-24] MEDS ORDERED: metFORMIN HCL 500 MG TAB PO SCH (17:00)
== END 2020-12-24 12:38 | disposition home health service (06) | DRG 455 ==
LOC: ASU 08:06 → PACUINP 12:03 → 3N 13:42

== ENCOUNTER 2021-09-23 17:31 | Observation (INO) ==
[2021-09-23 18:08] LABS: Basophils # (auto) 0.02 K/uL (0-0.2); Basophils % (auto) 0.2 %; Eosinophils # (auto) 0.16 K/uL (0-0.5); Eosinophils % (auto) 1.5 %; Hematocrit (blood only) 37.3 % (37-47); Hemoglobin 12.3 g/dL (12.0-16.0); Immature Granulocytes # (auto) 0.03 K/uL (0.00-0.02); Immature Granulocytes % (auto) 0.3 %; Lymphocytes # (auto) 3.33 K/uL (1.2-3.4); Lymphocytes % (auto) 32.2 %; Mean Corpuscular Hemoglobin 31.4 pg (25-34); Mean Corpuscular Volume 95.2 fL (80-100); Mean Platelet Volume 10.8 fL (7.4-10.4); Monocytes # (auto) 0.82 K/uL (0.11-0.59); Monocytes % (auto) 7.9 %; Neutrophils # (auto) 5.99 K/uL (1.4-6.5); Neutrophils % (auto) 57.9 %; Platelet Count 239 K/uL (130-400); RDW Coefficient of Variation 13.3 % (11.5-14.5); RDW Standard Deviation 45.8 fL (36.4-46.3); Red Blood Count 3.92 M/uL (4.2-5.4); White Blood Count 10.35 K/uL (4.8-10.8)
[2021-09-23 18:20] LABS: Alanine Aminotransferase 15 U/L (7-52); Albumin Globulin Ratio 1.9 (0.9-2); Alkaline Phosphatase 54 U/L (34-104); Anion Gap 5 (3-11); Aspartate Aminotransferase 16 U/L (13-39); BUN Creatinine Ratio 21.3 (10-20); Bilirubin,Total 0.4 mg/dl (0.2-1.0); Blood Urea Nitrogen 19 mg/dl (6-23); Carbon Dioxide 28 mmol/L (21-32); Chloride 109 mmol/L (98-107); Creatinine Clr Calc Pharmacy 41.9 ml/min; Est GFR (African American) 69.5 ml/min; Est GFR (Non-African American) 59.9 ml/min; Globulin 2.1 gm/dl (2.5-4.0); Glucose 129 mg/dl (70-99(Fasting)); Lipase 42 U/L (11-82); Potassium 4.2 mmol/L (3.5-5.1); Sodium 142 mmol/L (136-145); Total Protein 6.1 gm/dl (6.0-8.3)
[2021-09-23 18:21] LABS: D Dimer 500 ug/L FEU (0-500)
--- NOTE | 2021-09-23 18:30 | XRay Report ---
XR chest 1V portable CLINICAL HISTORY: Atypical chest pain TECHNIQUE: Single frontal radiograph of the chest was obtained. Comparison: Comparison is made to chest 2 views 12/07/2020 FINDINGS: No lines and tubes are seen. Calcified aortic knob is seen. Lungs are underinflated but clear. No haroon dence of pleural effusion or pneumothorax. IMPRESSION: No acute chest disease. ACT 112: Negative or not required by law. Electronically signed by: Fahad Mckenna M.D. 09/23/2021 6:28 PM
[2021-09-23 19:00] LABS: Troponin I < 0.03 ng/ml (0-0.04)
--- NOTE | 2021-09-23 19:00 | Emergency Department Note ---
Impression & Plan Substernal chest pain, Neck pain on right side ED Provider Note INFORMANT: Patient ED PROVIDER(S): Malik Rojo MD CHIEF COMPLAINT: Chest pain PLAN: Disposition: Admitted Condition: Good Outpatient prescription management: none Referral: None MEDICAL DECISION MAKING: Patient presented to return [place] chest pain and pain radiating into the back of the right neck. She has a history of aortic disease. Her ECG did not reveal any obvious acute findings however poor progression present. Chest x-ray was negative. Her CBC and chemistry panel was unremarkable. D-dimer was within normal limits. Troponin was negative. The patient underwent chest CT imaging secondary to her history. CT imaging of the chest and neck did not reveal any evidence of acute pathology. Repeat troponin was negative. The patient initially was reluctant to stay in the hospital and therefore the repeat troponin was ordered. On reassessment the patient is doing well. Given the situation the patient will benefit from coming into the hospital. Consultation was made with Dr. Steve Sifuentes of the [facility] service. Patient was evaluated in the ER for further management. Triage Nursing notes reviewed and agree them. Vital Signs: reviewed and remarkable for no significant abnormalities Differential diagnosis: Cardiac ischemia, aortic dissection, pulmonary embolism, pneumothorax, pneumonia, pericarditis, myocarditis, esophageal rupture, GERD, cholecystitis, pancreatitis, musculoskeletal, as well as other pathologies. Diagnostics interpreted by me: ECG: Twelve-lead ECG reveals normal sinus rhythm at 60. No ST elevation or depression. Poor R wave progression anteriorly. No PACs or PVCs. Cardiac Monitoring: Cardiac monitoring ordered by me: The patient was placed on continuous cardiac monitoring and observed. It revealed a normal sinus rhythm at 73 beats per minute without ectopy or evidence of dysrhythmia. Imaging studies: Chest x-ray. Findings: A chest x-ray was performed and revealed no pneumothorax, effusion, infiltrate, pulmonary edema, free air under the diaphragm, or wide mediastinum. HPI: The patient is a 85 year old female who presents to the Emergency Room with complaints of substernal chest pain. This started about 1 hour prior to arrival and is slightly improved. The patient also notes the following associated symptoms, belching, right-sided neck pain going to the base of her head. Patient is feels this was a stress reaction. She is under a lot of stress caring for her . The patient has been given aspirin and 3 sublingual nitroglycerin for relieving factors. Current pain is rated as 6/10. Pain was an 8 out of 10. Patient states the nitroglycerin did not seem to make any difference. Pt denies LOC, fevers, chills, diaphoresis, visual changes, breathing difficulties, nausea, vomiting, abdominal pain, back pain, melena, hematochezia, urinary symptoms, numbness, weakness, lymphadenopathy, rash, or other complaints. ROS: See above HPI for pertinent positives & negatives. A total of 10 systems re viewed and were otherwise negative. PAST MEDICAL HISTORY:See Below , AAA, diabetes PAST SURGICAL HISTORY:See Below, cholecystectomy FAMILY HISTORY:See Below SOCIAL HISTORY:See Below, HOME MEDICATIONS:See Below ALLERGIES:See Below VITALS:See Below PHYSICAL EXAMINATION: GENERAL: Awake, alert, well-appearing, in no distress HENT: Normocephalic, atraumatic. Oropharynx unremarkable. EYES: Normal conjunctiva. Sclera non-icteric. NECK: Inspection normal. Non-tender. Supple. No nuchal rigidity. FROM. No masses. RESPIRATORY: Clear to auscultation. No wheezes. No rales. Normal respiratory effort. CARDIAC: Normal rate. Normal rhythm. No murmurs. No rubs. Extremities warm and well perfused. Pulses equal. No JVD. GI: Soft, non-distended. Epigastric tenderness to palpation. No rebound or guarding. No masses. RECTAL: Deferred. MUSCULOSKELETAL: Atraumatic. Chest examination reveals no tenderness. The back is symmetrical on inspection without obvious abnormality. There is no CVA tenderness to palpation. No joint edema. LOWER EXTREMITIES: Calves are equal size bilaterally and non-tender. No edema. No discoloration. NEURO: Normal sensorium. No sensory or motor deficits noted. SKIN: No rash or jaundice noted. 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 Aortic valve sclerosis Benign essential hypertension Bone metabolism disorder Carotid artery stenosis Per 04/17/19 carotid doppler: <50% stenosis to bilateral ICAs, >50% stenosis to left ECA Cerebral ischemia Hyperparathyroidism Follows with endo Hypomagnesemia Lumbar radicular pain Extensive epidural fibrosis Lumbar stenosis with neurogenic claudication Mixed hyperlipidemia Peripheral vascular disease Postlaminectomy syndrome of lumbosacral region Short-term memory loss Type II diabetes mellitus Glucose controlled per patient Surgical History History of cataract surgery R/L History of colonoscopy History of fusion of lumbar spine lumbar vertebral fusion History of hysterectomy History of hysterectomy total with unilateral removal of ovary History of laparoscopic cholecystectomy History of surgical fusion joint sacroiliac joint fusion History of tonsillectomy History of umbilical hernia repair Family History Father Myocardial infarction Unknown Ovarian cancer granddaughter Daughter Thyroid cancer Malignant neoplasm of kidney Mother Diabetes Brother Diabetes Denies family history of Prostate cancer Breast cancer Colorectal cancer Social History Smoking Status: Never smoker Second Hand Exposure: No; Hx Alcohol Use: Yes Hx Substance Use: No Preferred Language: Ukrainian Communication Ability: Effective Visual Impairment: No Limitations Hearing Ability: Use of Hearing Aid 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: No Beliefs That Will Affect Care: None marital status: Current Living Situation: Spouse current occupational status: retired Other Information That Helps Us Care for You: No Feels Safe at Home: Yes Safety Concerns: Feels Safe At This Time Childhood Exposure to Second-Hand Smoke: Yes caffeine: No during the past year weight has: remained stable Dental Care, Regularly: Yes Physical Activity Frequency: 3-4 Times per Week Seatbelt Use: always Sunscreen Use: Yes Assistive Devices: None Allergies Allergies Allergy/AdvReac Type Severity Reaction Status Date / Time nifedipine AdvReac Unknown pt states Verified 09/23/21 18:06 unable to tolerate-does not remember what occurred Home Meds Home Medications Medication Instructions Recorded Confirmed aspirin 81 mg tablet,delayed 81 mg PO HS 12/01/20 09/23/21 release Previous Rx's Medication Instructions Recorded lisinopril 20 mg tablet 20 mg PO QAM #90 tab 01/24/21 metformin 1,000 mg tablet 1,000 mg PO BID #180 tab 01/25/21 glimepiride 4 mg tablet 4 mg PO BID #180 tab 04/25/21 blood-glucose meter (OneTouch #1 ea 06/14/21 Verio Reflect Start) lancing device with lancets kit #100 ea 06/14/21 (OneTouch Delica Lanc Device) magnesium oxide 500 mg capsule 500 mg PO DAILY #60 cap 06/14/21 mecobalamin (vitamin B12) 1,000 1,000 mcg PO DAILY #30 tab 06/14/21 mcg chewable tablet (B12 Active) rosuvastatin 40 mg tablet 40 mg PO DAILY #90 tab 06/14/21 blood sugar diagnostic (OneTouch #50 ea 06/23/21 Verio test strips) Results & Data (ED) Vital Signs Vital Signs - 24 hr 09/23/21 17:40 09/23/21 17:42 09/23/21 17:44 Temperature 36.7 C Temperature Source Oral Pulse Rate 72 73 Pulse Rate [Left Radial] 68 Pulse Rate from SpO2 Sensor Pulse Rhythm Regular Regular Pulse Rhythm [Left Radial] Regular Pulse Strength Normal Pulse Strength [Left Radial] Normal Respiratory Rate 20 20 18 Respiratory Effort / Characteristics Non-Labored Non-Labored Respiratory Depth Normal Normal Respiratory Pattern Regular Regular Blood Pressure 104/51 L Blood Pressure [Left Arm] Blood Pressure Mean 68 Blood Pressure Mean [Left Arm] Blood Pressure Position Semi-fowlers Blood Pressure Position [Left Arm] Pulse Oximetry 99 98 95 Oxygen Delivery Method Room Air Room Air Room Air Sepsis Recent Fever Within 48 Hours No Sepsis New/Unexplained Change in Mental Status N/A Sepsis Action Taken by Nursing No Action Required 09/23/21 18:00 09/23/21 18:30 09/23/21 19:31 Temperature Temperature Source Pulse Rate Pulse Rate [Left Radial] Pulse Rate from SpO2 Sensor Pulse Rhythm Pulse Rhythm [Left Radial] Pulse Strength Pulse Strength [Left Radial] Respiratory Rate Respiratory Effort / Characteristics Respiratory Depth Respiratory Pattern Blood Pressure 108/63 94/42 L 111/56 L Blood Pressure [Left Arm] Blood Pressure Mean 78 59 74 Blood Pressure Mean [Left Arm] Blood Pressure Position Blood Pressure Position [Left Arm] Pulse Oximetry Oxygen Delivery Method Sepsis Recent Fever Within 48 Hours Sepsis New/Unexplained Change in Mental Status Sepsis Action Taken by Nursing 09/23/21 19:42 09/23/21 21:02 09/23/21 21:20 Temperature Temperature Source Pulse Rate Pulse Rate [Left Radial] 78 Pulse Rate from SpO2 Sensor 62 Pulse Rhythm Pulse Rhythm [Left Radial] Pulse Strength Pulse Strength [Left Radial] Respiratory Rate 14 26 H Respiratory Effort / Characteristics Non-Labored Respiratory Depth Normal Respiratory Pattern Blood Pressure 107/52 L Blood Pressure [Left Arm] 111/56 L Blood Pressure Mean 70 Blood Pressure Mean [Left Arm] 74 Blood Pressure Position Blood Pressure Position [Left Arm] Lying Pulse Oximetry 98 96 Oxygen Delivery Method Room Air Sepsis Recent Fever Within 48 Hours Sepsis New/Unexplained Change in Mental Status Sepsis Action Taken by Nursing 09/23/21 21:30 09/23/21 22:01 09/23/21 22:10 Temperature Temperature Source Pulse Rate Pulse Rate [Left Radial] Pulse Rate from SpO2 Sensor Pulse Rhythm Pulse Rhythm [Left Radial] Pulse Strength Pulse Strength [Left Radial] Respiratory Rate 15 Respiratory Effort / Characteristics Respiratory Depth Respiratory Pattern Blood Pressure 101/57 L 114/65 Blood Pressure [Left Arm] Blood Pressure Mean 71 81 Blood Pressure Mean [Left Arm] Blood Pressure Position Blood Pressure Position [Left Arm] Pulse Oximetry Oxygen Delivery Method Sepsis Recent Fever Within 48 Hours Sepsis New/Unexplained Change in Mental Status Sepsis Action Taken by Nursing 09/23/21 22:30 Temperature Temperature Source Pulse Rate Pulse Rate [Left Radial] Pulse Rate from SpO2 Sensor Pulse Rhythm Pulse Rhythm [Left Radial] Pulse Strength Pulse Strength [Left Radial] Respiratory Rate Respiratory Effort / Characteristics Respiratory Depth Respiratory Pattern Blood Pressure 86/53 L Blood Pressure [Left Arm] Blood Pressure Mean 64 Blood Pressure Mean [Left Arm] Blood Pressure Position Blood Pressure Position [Left Arm] Pulse Oximetry Oxygen Delivery Method Sepsis Recent Fever Within 48 Hours Sepsis New/Unexplained Change in Mental Status Sepsis Action Taken by Nursing Laboratory Data Result diagrams: 09/23/21 17:46 09/23/21 17:46 Lab Results 09/23/21 09/23/21 09/23/21 Range/Units 17:46 17:46 17:46 WBC 10.35 (4.8-10.8) K/uL RBC 3.92 L (4.2-5.4) M/uL Hgb 12.3 (12.0-16.0) g/dL Hct 37.3 (37-47) % MCV 95.2 (80-100) fL MCH 31.4 (25-34) pg MCHC 33.0 (32-36) g/dL RDW Std Deviation 45.8 (36.4-46.3) fL RDW Coeff of Delvin 13.3 (11.5-14.5) % Plt Count 239 (130-400) K/uL MPV 10.8 H (7.4-10.4) fL Immature Gran % (Auto) 0.3 % Neut % (Auto) 57.9 % Lymph % (Auto) 32.2 % [place] % (Auto) 7.9 % Eos % (Auto) 1.5 % Baso % (Auto) 0.2 % Neut # (Auto) 5.99 (1.4-6.5) K/uL Lymph # (Auto) 3.33 (1.2-3.4) K/uL [place] # (Auto) 0.82 H (0.11-0.59) K/uL Eos # (Auto) 0.16 (0-0.5) K/uL Baso # (Auto) 0.02 (0-0.2) K/uL Immature Gran # (Auto) 0.03 H (0.00-0.02) K/uL D-Dimer 500 (0-500) ug/L FEU Sodium 142 (136-145) mmol/L Potassium 4.2 (3.5-5.1) mmol/L Chloride 109 H (98-107) mmol/L Carbon Dioxide 28 (21-32) mmol/L Anion Gap 5 (3-11) BUN 19 (6-23) mg/dl Creatinine 0.89 (0.6-1.2) mg/dl Est Cr Clr Drug Dosing 41.9 ml/min Est GFR ( Amer) 69.5 ml/min Est GFR (Non-Af Amer) 59.9 ml/min BUN/Creatinine Ratio 21.3 H (10-20) Glucose 129 H (70-99(Fasting)) mg/dl Calcium 10.0 (8.5-10.1) mg/dl Phosphorus (2.5-4.9) mg/dl Magnesium (1.7-2.4) mg/dl Total Bilirubin 0.4 (0.2-1.0) mg/dl AST 16 (13-39) U/L ALT 15 (7-52) U/L Alkaline Phosphatase 54 (34-104) U/L Troponin I < 0.03 (0-0.04) ng/ml Total Protein 6.1 (6.0-8.3) gm/dl Albumin 4.0 (3.4-5.0) gm/dl Globulin 2.1 L (2.5-4.0) gm/dl Albumin/Globulin Ratio 1.9 (0.9-2) Lipase 42 (11-82) U/L SARS-CoV-2, RNA, NAAT (NEGATIVE) 09/23/21 09/23/21 09/23/21 Range/Units 18:20 19:44 19:50 WBC (4.8-10.8) K/uL RBC (4.2-5.4) M/uL Hgb (12.0-16.0) g/dL Hct (37-47) % MCV (80-100) fL MCH (25-34) pg MCHC (32-36) g/dL RDW Std Deviation (36.4-46.3) fL RDW Coeff of Delvin (11.5-14.5) % Plt Count (130-400) K/uL MPV (7.4-10.4) fL Immature Gran % (Auto) % Neut % (Auto) % Lymph % (Auto) % [place] % (Auto) % Eos % (Auto) % Baso % (Auto) % Neut # (Auto) (1.4-6.5) K/uL Lymph # (Auto) (1.2-3.4) K/uL [place] # (Auto) (0.11-0.59) K/uL Eos # (Auto) (0-0.5) K/uL Baso # (Auto) (0-0.2) K/uL Immature Gran # (Auto) (0.00-0.02) K/uL D-Dimer (0-500) ug/L FEU Sodium (136-145) mmol/L Potassium (3.5-5.1) mmol/L Chloride (98-107) mmol/L Carbon Dioxide (21-32) mmol/L Anion Gap (3-11) BUN (6-23) mg/dl Creatinine (0.6-1.2) mg/dl Est Cr Clr Drug Dosing ml/min Est GFR ( Amer) ml/min Est GFR (Non-Af Amer) ml/min BUN/Creatinine Ratio (10-20) Glucose (70-99(Fasting)) mg/dl Calcium (8.5-10.1) mg/dl Phosphorus 2.7 (2.5-4.9) mg/dl Magnesium 1.3 L (1.7-2.4) mg/dl Total Bilirubin (0.2-1.0) mg/dl AST (13-39) U/L ALT (7-52) U/L Alkaline Phosphatase (34-104) U/L Troponin I < 0.03 (0-0.04) ng/ml Total Protein (6.0-8.3) gm/dl Albumin (3.4-5.0) gm/dl Globulin (2.5-4.0) gm/dl Albumin/Globulin Ratio (0.9-2) Lipase (11-82) U/L SARS-CoV-2, RNA, NAAT NEGATIVE (NEGATIVE) Imaging Data Radiologist's Impression: Chest X-Ray 09/23/21 18:04 XR chest 1V portable CLINICAL HISTORY: Atypical chest pain TECHNIQUE: Single frontal radiograph of the chest was obtained. Comparison: Comparison is made to chest 2 views 12/07/2020 FINDINGS: No lines and tubes are seen. Calcified aortic knob is seen. Lungs are underinflated but clear. No evidence of pleural effusion or pneumothorax. IMPRESSION: No acute chest disease. ACT 112: Negative or not required by law. Electronically signed by: Fahad Mckenna M.D. 09/23/2021 6:28 PM Chest CTA 09/23/21 19:18 CT angio chest dissec wo/w con CLINICAL HISTORY: chest pain, neck pain, aortic murmur, hx of AAA TECHNIQUE: Multidetector row helical CT of the chest was performed before and after injection of IV contrast. Coronal and sagittal reformations were obtained. Automated dose lowering techniques and/or adjustment according to patient size were utilized for this exam. Comparison: Comparison is made to CTA abdomen and pelvis 04/19/2015 FINDINGS: Lungs and pleura: Normal. Heart and pericardium: Cardiomegaly is seen with biatrial enlargement. Vessels: Severe atherosclerotic changes in the aorta and coronary arteries. No evidence of dissection or pulmonary embolus. Mediastinum and olegario: Unremarkable. Chest wall and lower neck: Unremarkable. Abdomen: Patient is status post cholecystectomy. Bones: Degenerative changes in the thoracic spine. IMPRESSION: No acute abnormality and in particular no evidence of acute aortic injury. ACT 112: Negative or not required by law. Electronically signed by: Fahad Mckenna M.D. 09/23/2021 8:43 PM Neck CTA 09/23/21 19:31 CT angio neck with con CLINICAL HISTORY: chest and right neck pain, ? Dissection TECHNIQUE: CT angiography of the neck was performed following intravenous administration of iodinated contrast. Coronal and sagittal MIPS were obtained from the axial data set and were submitted for review. Automated dose lowering techniques and/or adjustment according to patient size were utilized for this examination. All measurements were calculated based on NASCET criteria. Comparison: None available at the time of this dictation. FINDINGS: Lungs and soft tissues are unremarkable. CTA Neck: A 3 vessel aortic arch is shown. Atherosclerotic plaque is present in the aortic arch and at the origin of the great vessels. There is mild calcified atherosclerotic plaque at the bifurcation of the bilateral common carotid arteries without hemodynamically significant flow stenosis. There is no dissection present. The left vertebral artery is dominant. IMPRESSION: No occlusion, hemodynamically significant stenosis, or dissection in the major cervical arteries. No evidence of dissection is seen. Assessment of stenosis of the internal carotid arteries is based on NASCET criteria. ACT 112: Negative or not required by law. Electronically signed by: Fahad Mckenna M.D. 09/23/2021 8:59 PM Discharge Plan Visit Data Chief Complaint: Chest Pain Stated Complaint: CHEST PAIN ED Provider: Malik Rojo Discharge Problem: Substernal chest pain, Neck pain on right side Patient Disposition: Admitted As Inpatient Discharge Instructions Interventions: ED Discharge Assessment Last Done: 09/23/21 22:54
--- NOTE | 2021-09-23 20:46 | CT Scan Report ---
CT angio chest dissec wo/w con CLINICAL HISTORY: chest pain, neck pain, aortic murmur, hx of AAA TECHNIQUE: Multidetector row helical CT of the chest was performed before and after injection of IV c ontrast. Coronal and sagittal reformations were obtained. Automated dose lowering techniques and/or a djustment according to patient size were utilized for this exam. Comparison: Comparison is made to CTA abdomen and pelvis 04/19/2015 FINDINGS: Lungs and pleura: Normal. Heart and pericardium: Cardiomegaly is seen with biatrial enlargement. Vessels: Severe atherosclerotic changes in the aorta and coronary arteries. No evidence of dissection or pulmonary embolus. Mediastinum and olegario: Unremarkable. Chest wall and lower neck: Unremarkable. Abdomen: Patient is status post cholecystectomy. Bones: Degenerative changes in the thoracic spine. IMPRESSION: No acute abnormality and in particular no evidence of acute aortic injury. ACT 112: Negative or not required by law. Electronically signed by: Fahad Mckenna M.D. 09/23/2021 8:43 PM
--- NOTE | 2021-09-23 21:02 | CT Scan Report ---
CT angio neck with con CLINICAL HISTORY: chest and right neck pain, ? Dissection TECHNIQUE: CT angiography of the neck was performed following intravenous administration of iodinated contrast. Coronal and sagittal MIPS were obtained from the axial data set and were submitted for rev iew. Automated dose lowering techniques and/or adjustment according to patient size were utilized fo r this examination. All measurements were calculated based on NASCET criteria. Comparison: None available at the time of this dictation. FINDINGS: Lungs and soft tissues are unremarkable. CTA Neck: A 3 vessel aortic arch is shown. Atherosclerotic plaque is present in the aortic arch and at the origin of the great vessels. There is mild calcified atherosclerotic plaque at the bifurcatio n of the bilateral common carotid arteries without hemodynamically significant flow stenosis. There i s no dissection present. The left vertebral artery is dominant. IMPRESSION: No occlusion, hemodynamically significant stenosis, or dissection in the major cervical arteries. No evidence of dissection is seen. Assessment of stenosis of the internal carotid arteries is based on NASCET criteria. ACT 112: Negative or not required by law. Electronically signed by: Fahad Mckenna M.D. 09/23/2021 8:59 PM
[2021-09-23] MEDS ORDERED: GLUCAGON FOR INJ 1 MG VIAL SQ PRN (23:24)
[2021-09-23] MEDS ORDERED: GLUCOSE 40% GEL 15 GM TUBE PO PRN (23:24)
[2021-09-23] MEDS ORDERED: NITROGLYCERIN SL 0.4 MG/TAB TAB SL PRN (23:24)
[2021-09-23] MEDS ORDERED: GLUCOSE 10 TABS/TUBE PO PRN (23:24)
[2021-09-23] MEDS ORDERED: ACETAMINOPHEN 325 MG TAB PO PRN (23:24)
[2021-09-23] MEDS ORDERED: CARBOHYDRATES FOR HYPOGLYCEMIA PO PRN (23:24)
[2021-09-23] MEDS ORDERED: DEXTROSE 50% 50 ML SYRINGE IV PRN (23:24)
[2021-09-23] MEDS ORDERED: ALUMINUM/MAGNESIUM SUSP 72 ML, LIDOCAINE VISCOUS 2% SOLN 24 ML, BARCODE IDENTIFIER 1 EA PO PRN (23:24)
[2021-09-23] MEDS ORDERED: ONDANSETRON INJ 2 MG/ML 2 ML VIAL IV PRN (23:24)
[2021-09-23 23:47] LABS: Magnesium 1.3 mg/dl (1.7-2.4); Phosphorus 2.7 mg/dl (2.5-4.9)
--- NOTE | 2021-09-24 00:59 | History & Physical Report ---
Date of Service September 23, 2021 Assessment & Plan (1) Substernal chest pain: Plan: 85yo female with HTN, HLP, DM, Aortic stenosis presenting with acute onset epigastric discomfort with radiation to back. Troponin x 2 NEGATIVE (2 hrs apart) EKG with no acute changes Atypical chest/epigastric pain. -Observation to medical with telemetry -Trend troponin q 8 hours x 2 -EKG as needed for chest pain -GI cocktail PRN recurrence of pain -Check 2D echo (2) Neck pain on right side: Plan: Etiology uncertain. No pain with palpation. No bruits. CTA neck unremarkable -Monitor -Pain control (3) Mixed hyperlipidemia: Plan: Chronic -Continue Crestor (4) Type II diabetes mellitus: Plan: Well controlled. Last A1C=5.9 on 06/08/21 -Hold oral agents -Lantus 4u BID, ISS while inpatient -Goal blood sugar 100 - 140 -Consider deescalation of medication as outpatient (5) Benign essential hypertension: Plan: Blood pressure well controlled, borderline low for age -Continue Lisinopril -Monitor (6) Aortic aneurysm: Plan: -Stable -Continue outpatient monitoring US abdominal aortic aneurysm performed 07/22/21 - COMPARISON STUDY: Ultrasound abdominal aorta 07/08/2020. FINDINGS: Transabdominal scanning of the abdomen was performed with customer field representative images submitted. There is focal aneurysmal dilatation of the mid infrarenal abdominal aorta measuring approximately 3.1 cm. This is similar to the prior study. Bilateral common iliac arteries are normal in caliber. IMPRESSION: No change in the 3.1 cm infrarenal abdominal aortic aneurysm. (7) Aortic stenosis: Plan: Patient follows with Cardiology. Last Echo performed 12/15/20 with normal LV size and function. Mild concentric LVH. EF of 65-70% Trileaflet aortic valve. Mild calcification. Moderate valvular aortic stenosis with MICHELLE 0.86cm2. No regurgitation. No clinical evidence of failure. -Repeat echocardiogram for chest pain workup as above -Cardiology followup as scheduled Plan: F/E/N - Heplock. Electrolytes WNL, CC/AHA diet as tolerated Ppx - Low risk for DVT Code - Full per discussion with patient Dispo - Observation to medical with telemetry Admission and Anticipated Discharge Date Admission Date: September 23, 2021 History of Present Illness Chief Complaint: chest pain Primary Care Provider: MD Barbara Dodson is an 85yo female with history of HTN, HLP, DM, Aortic stenosis and infrarenal abdominal aortic aneurysm presenting with acute episode of chest pain. Patient was at home this afternoon trying to take a nap around 16:30 when she had sudden onset of pinpoint epigastric pain with radiation into her back and right neck. Pain was severe, 8/10, sharp and stabbing in nature. She felt cold and dizzy at the time. She developed a lot of gas - flatulence and eructation. Also with severe headache from right neck to base of head. Patient received ASA and Nitro x 3 prior to arrival with no improvement. She denies fever, palpitations, cough, SOB, diaphoresis, nausea, vomiting, diarrhea or constipation. No additional complaints. Feels that symptoms may be secondary to stress. 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 Patient afebrile, HD stable in the ER. Chest/epigastric pain has resolved. WHALEN still present although improved. Allergies Allergy/AdvReac Type Severity Reaction Status Date / Time nifedipine AdvReac Unknown pt states Verified 09/23/21 18:06 unable to tolerate-does not remember what occurred Home Medications Medication Instructions Recorded Confirmed Type aspirin 81 mg tablet,delayed 81 mg PO HS 12/01/20 09/23/21 History release lisinopril 20 mg tablet 20 mg PO QAM #90 tab 01/24/21 09/23/21 Rx metformin 1,000 mg tablet 1,000 mg PO BID #180 tab 01/25/21 09/23/21 Rx glimepiride 4 mg tablet 4 mg PO BID #180 tab 04/25/21 09/23/21 Rx blood-glucose meter (Keen ImpressionsTouch #1 ea 06/14/21 08/03/21 Rx Verio Reflect Start) lancing device with lancets kit #100 ea 06/14/21 08/03/21 Rx (OneTouch Delica Lanc Device) magnesium oxide 500 mg capsule 500 mg PO DAILY #60 cap 06/14/21 09/23/21 Rx mecobalamin (vitamin B12) 1,000 1,000 mcg PO DAILY #30 tab 06/14/21 09/23/21 Rx mcg chewable tablet (B12 Active) rosuvastatin 40 mg tablet 40 mg PO DAILY #90 tab 06/14/21 09/23/21 Rx blood sugar diagnostic (OneTouch #50 ea 06/23/21 08/03/21 Rx Verio test strips) Past Med/Surg History Medical History (Updated 09/23/21 @ 19:00 by Malik Rojo MD) Aortic aneurysm Stable per patient - follows with PCP US AAA 07/08/20= "No significant change in an infrarenal abdominal aortic aneurysm, measuring 3.1 cm." Aortic stenosis Mild per 04/2019 ECHO = MICHELLE 1.5cm2; AV mean gradient= 11.3 mmHg; AV max velocity= 2.28m/s 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 Aortic valve sclerosis Benign essential hypertension Bone metabolism disorder Carotid artery stenosis Per 04/17/19 carotid doppler: <50% stenosis to bilateral ICAs, >50% stenosis to left ECA Cerebral ischemia Hyperparathyroidism Follows with endo Hypomagnesemia Lumbar radicular pain Extensive epidural fibrosis Lumbar stenosis with neurogenic claudication Mixed hyperlipidemia Peripheral vascular disease Postlaminectomy syndrome of lumbosacral region Short-term memory loss Type II diabetes mellitus Glucose controlled per patient Surgical History History of cataract surgery R/L History of colonoscopy History of fusion of lumbar spine lumbar vertebral fusion History of hysterectomy History of hysterectomy total with unilateral removal of ovary History of laparoscopic cholecystectomy History of surgical fusion joint sacroiliac joint fusion History of tonsillectomy History of umbilical hernia repair Family History Father Myocardial infarction Unknown Ovarian cancer granddaughter Daughter Thyroid cancer Malignant neoplasm of kidney Mother Diabetes Brother Diabetes Denies family history of Prostate cancer Breast cancer Colorectal cancer Social History Smoking Status: Never smoker Second Hand Exposure: No; Hx Alcohol Use: Yes Hx Substance Use: No Preferred Language: Cuban Communication Ability: Effective Visual Impairment: No Limitations Hearing Ability: Use of Hearing Aid Route Relief Driver Required: No Beliefs That Will Affect Care: None marital status: Current Living Situation: Spouse current occupational status: retired Other Information That Helps Us Care for You: No Feels Safe at Home: Yes Safety Concerns: Feels Safe At This Time Childhood Exposure to Second-Hand Smoke: Yes caffeine: No during the past year weight has: remained stable Dental Care, Regularly: Yes Physical Activity Frequency: 3-4 Times per Week Seatbelt Use: always Sunscreen Use: Yes Assistive Devices: None Review of Systems Review of Systems: All systems reviewed & are unremarkable except as noted in HPI & below Physical Exam Physical Exam: General: patient resting comfortably, NAD, non-toxic in appearance, AA&O x 4 Skin: warm, dry, intact, no rashes or lesions HEENT: NC/AT, PERRL, EOMI, anicteric sclera, conjunctiva without injection, external ear normal to inspection and nontender, nares patent, moist mucus membranes, dentition intact, no oropharyngeal lesions, neck supple, trachea midline, no LAD, no thyromegaly, no JVD Heart: +S1/S2, regular, 4/6 ISAISA at left 2nd ICS with radiation across precor dium and to bilateral carotids, no reproducible chest wall or abdominal pain Lungs: equal air entry bilaterally, no rales/rhonchi/wheezes Abd: +BS, soft, NT/ND, no masses/organomegaly/ascites Ext: warm, 2+ pulses in UE/LE bilaterally, no clubbing/cyanosis or edema Neuro: nonfocal, patient AA&O x 4, speech intact, no facial droop, moving all extremities on command with equal strength 5/5 Results & Data Results & Data ([facility]) Vital Signs (Past 12 Hours) Vital Signs Temp Pulse Pulse Resp BP BP Pulse Ox 09/23/21 23:25 36.5 C 60 64 18 113/68 96 09/23/21 22:54 60 14 104/50 L 95 09/23/21 22:52 64 14 104/50 L 95 09/23/21 22:30 86/53 L 09/23/21 22:10 15 09/23/21 22:01 114/65 09/23/21 21:30 101/57 L 09/23/21 21:20 26 H 96 09/23/21 21:02 107/52 L 09/23/21 19:42 78 14 111/56 L 98 09/23/21 19:31 111/56 L 09/23/21 18:30 94/42 L 09/23/21 18:00 108/63 09/23/21 17:44 36.7 C 73 18 104/51 L 95 09/23/21 17:42 68 20 98 09/23/21 17:40 72 20 99 Laboratory Results Laboratory Results WBC 10.35 K/uL (4.8-10.8) 09/23/21 17:46 RBC 3.92 M/uL (4.2-5.4) L 09/23/21 17:46 Hgb 12.3 g/dL (12.0-16.0) 09/23/21 17:46 Hct 37.3 % (37-47) 09/23/21 17:46 MCV 95.2 fL (80-100) 09/23/21 17:46 MCH 31.4 pg (25-34) 09/23/21 17:46 MCHC 33.0 g/dL (32-36) 09/23/21 17:46 RDW Std Deviation 45.8 fL (36.4-46.3) 09/23/21 17:46 RDW Coeff of Delvin 13.3 % (11.5-14.5) 09/23/21 17:46 Plt Count 239 K/uL (130-400) 09/23/21 17:46 MPV 10.8 fL (7.4-10.4) H 09/23/21 17:46 Immature Gran % (Auto) 0.3 % 09/23/21 17:46 Neut % (Auto) 57.9 % 09/23/21 17:46 Lymph % (Auto) 32.2 % 09/23/21 17:46 Waller % (Auto) 7.9 % 09/23/21 17:46 Eos % (Auto) 1.5 % 09/23/21 17:46 Baso % (Auto) 0.2 % 09/23/21 17:46 Neut # (Auto) 5.99 K/uL (1.4-6.5) 09/23/21 17:46 Lymph # (Auto) 3.33 K/uL (1.2-3.4) 09/23/21 17:46 Waller # (Auto) 0.82 K/uL (0.11-0.59) H 09/23/21 17:46 Eos # (Auto) 0.16 K/uL (0-0.5) 09/23/21 17:46 Baso # (Auto) 0.02 K/uL (0-0.2) 09/23/21 17:46 Immature Gran # (Auto) 0.03 K/uL (0.00-0.02) H 09/23/21 17:46 D-Dimer 500 ug/L FEU (0-500) 09/23/21 17:46 Sodium 142 mmol/L (136-145) 09/23/21 17:46 Potassium 4.2 mmol/L (3.5-5.1) 09/23/21 17:46 Chloride 109 mmol/L (98-107) H 09/23/21 17:46 Carbon Dioxide 28 mmol/L (21-32) 09/23/21 17:46 Anion Gap 5 (3-11) 09/23/21 17:46 BUN 19 mg/dl (6-23) 09/23/21 17:46 Creatinine 0.89 mg/dl (0.6-1.2) 09/23/21 17:46 Est Cr Clr Drug Dosing 41.9 ml/min 09/23/21 17:46 Est GFR ( Amer) 69.5 ml/min 09/23/21 17:46 Est GFR (Non-Af Amer) 59.9 ml/min 09/23/21 17:46 BUN/Creatinine Ratio 21.3 (10-20) H 09/23/21 17:46 Glucose 129 mg/dl (70-99(Fasting)) H 09/23/21 17:46 POC Glucose 113 mg/dl (70-99) H 09/23/21 23:29 Calcium 10.0 mg/dl (8.5-10.1) 09/23/21 17:46 Phosphorus 2.7 mg/dl (2.5-4.9) 09/23/21 19:50 Magnesium 1.3 mg/dl (1.7-2.4) L 09/23/21 19:50 Total Bilirubin 0.4 mg/dl (0.2-1.0) 09/23/21 17:46 AST 16 U/L (13-39) 09/23/21 17:46 ALT 15 U/L (7-52) 09/23/21 17:46 Alkaline Phosphatase 54 U/L (34-104) 09/23/21 17:46 Troponin I < 0.03 ng/ml (0-0.04) 09/23/21 19:44 Total Protein 6.1 gm/dl (6.0-8.3) 09/23/21 17:46 Albumin 4.0 gm/dl (3.4-5.0) 09/23/21 17:46 Globulin 2.1 gm/dl (2.5-4.0) L 09/23/21 17:46 Albumin/Globulin Ratio 1.9 (0.9-2) 09/23/21 17:46 Lipase 42 U/L (11-82) 09/23/21 17:46 SARS-CoV-2, RNA, NAAT NEGATIVE (NEGATIVE) 09/23/21 18:20 Impressions Chest X-Ray 09/23/21 18:04 XR chest 1V portable CLINICAL HISTORY: Atypical chest pain TECHNIQUE: Single frontal radiograph of the chest was obtained. Comparison: Comparison is made to chest 2 views 12/07/2020 FINDINGS: No lines and tubes are seen. Calcified aortic knob is seen. Lungs are underinflated but clear. No evidence of pleural effusion or pneumothorax. IMPRESSION: No acute chest disease. ACT 112: Negative or not required by law. Electronically signed by: Fahad Mckenna M.D. 09/23/2021 6:28 PM Chest CTA 09/23/21 19:18 CT angio chest dissec wo/w con CLINICAL HISTORY: chest pain, neck pain, aortic murmur, hx of AAA TECHNIQUE: Multidetector row helical CT of the chest was performed before and after injection of IV contrast. Coronal and sagittal reformations were obtained. Automated dose lowering techniques and/or adjustment according to patient size were utilized for this exam. Comparison: Comparison is made to CTA abdomen and pelvis 04/19/2015 FINDINGS: Lungs and pleura: Normal. Heart and pericardium: Cardiomegaly is seen with biatrial enlargement. Vessels: Severe atherosclerotic changes in the aorta and coronary arteries. No evidence of dissection or pulmonary embolus. Mediastinum and olegario: Unremarkable. Chest wall and lower neck: Unremarkable. Abdomen: Patient is status post cholecystectomy. Bones: Degenerative changes in the thoracic spine. IMPRESSION: No acute abnormality and in particular no evidence of acute aortic injury. ACT 112: Negative or not required by law. Electronically signed by: Fahad Mckenna M.D. 09/23/2021 8:43 PM Neck CTA 09/23/21 19:31 CT angio neck with con CLINICAL HISTORY: chest and right neck pain, ? Dissection TECHNIQUE: CT angiography of the neck was performed following intravenous administration of iodinated contrast. Coronal and sagittal MIPS were obtained from the axial data set and were submitted for review. Automated dose lowering techniques and/or adjustment according to patient size were utilized for this examination. All measurements were calculated based on NASCET criteria. Comparison: None available at the time of this dictation. FINDINGS: Lungs and soft tissues are unremarkable. CTA Neck: A 3 vessel aortic arch is shown. Atherosclerotic plaque is present in the aortic arch and at the origin of the great vessels. There is mild calcified atherosclerotic plaque at the bifurcation of the bilateral common carotid arteries without hemodynamically significant flow stenosis. There is no dissection present. The left vertebral artery is dominant. IMPRESSION: No occlusion, hemodynamically significant stenosis, or dissection in the major cervical arteries. No evidence of dissection is seen. Assessment of stenosis of the internal carotid arteries is based on NASCET criteria. ACT 112: Negative or not required by law. Electronically signed by: Fahad Mckenna M.D. 09/23/2021 8:59 PM ECG Additional Comments: EKG with SR at 60, normal axis, TR=566, QRS=78, HVj=768. No change from prior EKG Code Status & VTE Plan VTE Prophylaxis Plan VTE Prophylaxis will be ordered: Yes PG Care Time/CCT Total # of Minutes Spent Total Time Spent with Patient: Total time spent is greater than 50% in coordination of care (as documented) at patient's floor/unit and/or counseling patient: Coding Level of Care Code INT OBSERVATION CARE 70M LVL 3 Diagnoses Substernal chest pain R07.2 Neck pain on right side M54.2 Mixed hyperlipidemia E78.2 Type II diabetes mellitus E11.9 Benign essential hypertension I10 Aortic aneurysm I71.9 Aortic stenosis I35.0
[2021-09-24] MEDS: INSULIN ASPART PER UNIT SC SCH ×2 (08:28→13:02)
[2021-09-24] MEDS ORDERED: INSULIN GLARGINE SOLOSTAR 100 UNITS/ML 3 ML PEN SC SCH (09:00)
[2021-09-24] MEDS ORDERED: lisinopril 20 MG TAB PO SCH (09:00)
[2021-09-24] MEDS ORDERED: ROSUVASTATIN CALCIUM 20 MG TAB PO SCH (09:00)
[2021-09-24] MEDS: MAGNESIUM SULFATE / D5W 1 GM/100 ML BAG IV SCH ×2 (09:01→11:10)
--- NOTE | 2021-09-24 11:09 | Hospitalist Progress Note ---
Date of Service September 24, 2021 Assessment & Plan (1) Substernal chest pain: Plan: Now resolved. No acute EKG changes. Troponin series negative to date. Await cardiac echo report to evaluate for potential regional wall motion abnormalities. Use sublingual nitroglycerin as needed (2) Neck pain on right side: Plan: Resolved. Could possibly be musculoskeletal etiology. No current evidence of acute coronary syndrome. CTA neck unremarkable (3) Mixed hyperlipidemia: Plan: Chronic. Continue Crestor (4) Type II diabetes mellitus: Plan: Well controlled. Last A1C=5.9 on 06/08/21. ADA diet. Sliding scale coverage as needed. Resume oral medications at discharge (5) Benign essential hypertension: Plan: Blood pressure well controlled on lisinopril. (6) Aortic aneurysm: Plan: -Stable. Continue outpatient monitoring (7) Aortic stenosis: Plan: Patient follows with Cardiology. Last Echo performed 12/15/20 with normal LV size and function. Mild concentric LVH. EF of 65-70%. Trileaflet aortic valve. Mild calcification. Moderate valvular aortic stenosis with MICHELLE 0.86cm2. No regurgitation. No clinical evidence of failure. Repeat echocardiogram for chest pain workup as above. Cardiology followup as scheduled Plan: Code - Full Dispo - anticipate discharge to home tomorrowSeptember 25 Admission and Anticipated Discharge Date Admission Date: September 23, 2021 Subjective Alert and oriented. Chest discomfort has resolved. Troponin series negative to date. No acute EKG changes. Cardiac echo report pending to evaluate for regional wall motion abnormalities. Magnesium replacement underway. Hopefully home tomorrowSeptember 25 Review of Systems Review of Systems: Constitutional-no fever or chills ENT-no blurred vision, no double vision, no epistaxis, no sore throat Respiratory-no cough, no wheezing, no shortness of breath Cardiac-no palpitations, no chest pain, no syncope GI-no nausea, vomiting, diarrhea, melena, hematochezia -no urinary retention, no urinary incontinence, no dysuria, no hematuria Musculoskeletal-no joint pain, no muscle tenderness Skin-no bruising, no rashes, no pruritus Neuro-no isolated weakness, no paresthesia, no weakness Psych-no depression, no anxiety Physical Exam Physical Exam: General-alert and oriented x3, no fevers, no chills HEENT-head atraumatic and normocephalic, TMs intact bilaterally, pupils equal and reactive to light, extraocular muscles intact Neck-no lymphadenopathy or thyromegaly, trachea midline Chest-clear to auscultation percussion. No rales wheezing or rhonchi Cardiac-regular rate and rhythm, normal S1 and S2, no murmurs Abdomen-normal bowel sounds, nontender, no hepatosplenomegaly Extremities-no cyanosis, clubbing, or edema Neuro-cranial nerves II through XII intact, motor and sensory function within normal limits, strength symmetrical , no focal deficits Psych-normal affect, normal mood Results & Data Results & Data ([facility]) Vital Signs (Past 12 Hours) Vital Signs Temp Pulse Pulse Pulse Resp BP BP 09/24/21 07:52 37.0 C 62 18 137/74 09/24/21 07:18 62 09/24/21 03:16 36.6 C 58 L 18 97/56 L 09/23/21 23:25 36.5 C 60 64 18 113/68 Pulse Ox 09/24/21 07:52 97 09/24/21 07:18 09/24/21 03:16 96 09/23/21 23:25 96 Laboratory Results 09/23/21 17:46 09/23/21 17:46 PG Care Time/CCT Total # of Minutes Spent Total Time Spent with Patient: Total time spent is greater than 50% in coordination of care (as documented) at patient's floor/unit and/or counseling patient: Coding Level of Care Code 50438 Subseq Obs Care Lvl 3 Diagnoses Substernal chest pain R07.2 Neck pain on right side M54.2 Mixed hyperlipidemia E78.2 Type II diabetes mellitus E11.9 Benign essential hypertension I10 Aortic aneurysm I71.9 Aortic stenosis I35.0
[2021-09-24 11:43] VITALS: TEMP 98.8; O2SAT 95
--- NOTE | 2021-09-24 12:00 | XCELERA ---
[id number] \\[id number]\[id number]
--- NOTE | 2021-09-24 12:13 | Electrocardiogram Report ---
Test Reason : Blood Pressure : / mmHG Vent. Rate : 070 BPM Atrial Rate : 070 BPM P-R Int : 144 ms QRS Dur : 078 ms QT Int : 372 ms P-R-T Axes : 003 016 034 degrees QTc Int : 401 ms Normal sinus rhythm Normal ECG When compared with ECG of 07-DEC-2020 10:46, Questionable change in QRS axis T wave amplitude has increased in Lateral leads Confirmed by Abiodun Fontanez ([id number]) on 09/24/2021 12:13:23 PM Referred By: Matt Johnston Confirmed By:Abiodun Fontanez
--- NOTE | 2021-09-24 12:14 | Electrocardiogram Report ---
Test Reason : Blood Pressure : / mmHG Vent. Rate : 060 BPM Atrial Rate : 060 BPM P-R Int : 148 ms QRS Dur : 078 ms QT Int : 404 ms P-R-T Axes : 016 014 031 degrees QTc Int : 404 ms Normal sinus rhythm Poor R wave progression, consider anterior GA vs. lead placement vs. LVH Abnormal ECG When compared with ECG of 23-SEP-2021 17:40, (unconfirmed) No significant change was found Confirmed by Abiodun Fontanez ([id number]) on 09/24/2021 12:14:22 PM Referred By: Matt Johnston Confirmed By:Abiodun Fontanez
--- NOTE | 2021-09-24 14:15 | Discharge Summary ---
Date of Service September 24, 2021 Admission HPI Per Admitting Provider Barbara Vega is an 85yo female with history of HTN, HLP, DM, Aortic stenosis and infrarenal abdominal aortic aneurysm presenting with acute episode of chest pain. Patient was at home this afternoon trying to take a nap around 16:30 when she had sudden onset of pinpoint epigastric pain with radiation into her back and right neck. Pain was severe, 8/10, sharp and stabbing in nature. She felt cold and dizzy at the time. She developed a lot of gas - flatulence and eructation. Also with severe headache from right neck to base of head. Patient received ASA and Nitro x 3 prior to arrival with no improvement. She denies fever, palpitations, cough, SOB, diaphoresis, nausea, vomiting, diarrhea or constipation. No additional complaints. Feels that symptoms may be secondary to stress. 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 Patient afebrile, HD stable in the ER. Chest/epigastric pain has resolved. WHALEN still present although improved. Principal Diagnosis Chest pain, probably of noncardiac etiology. Hypomagnesemia Discharge Exam General-alert and oriented x3, no fevers, no chills HEENT-head atraumatic and normocephalic, TMs intact bilaterally, pupils equal and reactive to light, extraocular muscles intact Neck-no lymphadenopathy or thyromegaly, trachea midline Chest-clear to auscultation percussion. No rales wheezing or rhonchi Cardiac-regular rate and rhythm, normal S1 and S2, no murmurs Abdomen-normal bowel sounds, nontender, no hepatosplenomegaly Extremities-no cyanosis, clubbing, or edema Neuro-cranial nerves II through XII intact, motor and sensory function within normal limits, strength symmetrical , no focal deficits Psych-normal affect, normal mood Discharge Data Allergies Allergy/AdvReac Type Severity Reaction Status Date / Time nifedipine AdvReac Unknown pt states Verified 09/23/21 18:06 unable to tolerate-does not remember what occurred Consultations 09/23/21 22:04 ED Decision to Admit Stat Ordered Studies 09/23/21 19:18 CT angio chest dissec wo/w con Stat 09/23/21 19:31 CT angio neck with con Stat Hospital Course (1) Substernal chest pain: Now resolved. No acute EKG changes. Troponin series negative. Cardiac echo negative for regional wall motion abnormalities. Normal ejection fraction. (2) Neck pain on right side: Resolved. Could possibly be musculoskeletal etiology. No current evidence of acute coronary syndrome. CTA neck unremarkable (3) Mixed hyperlipidemia: Chronic. Continue Crestor (4) Type II diabetes mellitus: Well controlled. Last A1C=5.9 on 06/08/21. ADA diet. Sliding scale coverage as needed. Resume oral medications at discharge (5) Benign essential hypertension: Blood pressure well controlled on lisinopril. (6) Aortic aneurysm: -Stable. Continue outpatient monitoring (7) Aortic stenosis: Patient follows with Cardiology. Last Echo performed 12/15/20 with normal LV size and function. Mild concentric LVH. EF of 65-70%. Trileaflet aortic valve. Mild calcification. Moderate valvular aortic stenosis with MICHELLE 0.86cm2. No regurgitation. No clinical evidence of failure. Repeat echocardiogram report noted. No regional wall motion abnormalities . Cardiology followup as scheduled Code - Full Dispo - home today, September 25. She will see her primary care provider for scheduling of outpatient stress testing. Total Time Total Time Spent Total Time Spent (In Minutes): 35 minutes Discharge Plan Discharge Items Patient Disposition: Home - Self-Care Reason For Visit: CHEST PAIN Discharge Diagnosis: Atypical chest pain, hypomagnesemia Activity: Resume your previous activity Non-emergency contact: Primary Care Provider Call non-emergency contact if: you have any medication questions Follow-up/Referrals: Avi Johnston MD [Primary Care Provider] - Diet: Carb Consistent or DM2 and Heart Healthy Addtl Attending Provider Instructions: All medications remain the same. See your primary care provider for scheduling of outpatient heart stress testing Pending Studies at Discharge: No Stand-Alone Forms: My [facility] [employer], Smoking Cessation Medications and DC Order Prescriptions: Continued lisinopril 20 mg tablet 20 mg PO QAM Qty: 90 RF: 3 metformin 1,000 mg tablet 1,000 mg PO BID Qty: 180 RF: 3 glimepiride 4 mg tablet 4 mg PO BID Qty: 180 RF: 3 (DME) [employer] Verio test strips Strip See Rx Instructions .Route Qty: 50 RF: 3 rosuvastatin 40 mg tablet 40 mg PO DAILY Qty: 90 RF: 3 magnesium oxide 500 mg capsule 500 mg PO DAILY Qty: 60 RF: 5 B12 Active 1,000 mcg tablet,chewable 1,000 mcg PO DAILY Qty: 30 RF: 0 (DME) blood-glucose meter [OneTouch Verio Reflect Start] Kit See Rx Instructions .Route Qty: 1 RF: 0 (DME) lancing device with lancets [OneTouch Delica Lanc Device] Kit See Rx Instructions .Route Qty: 100 RF: 0 aspirin 81 mg Tablet,Delayed Release (Dr/Ec) 81 mg PO HS RF: 0 Discharge Orders: Discharge Order (Routine); Ordered 09/24/21 Ordered By: Varun Stover Admission Data Admit Date/Time: 09/23/21 22:34 Attending Provider: Varun Stover Admit Provider: Celena Castañeda Primary Care Provider: Avi Johnston Other Providers: Celena Castañeda Coding Level of Care Code D/C DAY MANAGEMENT >30 MINS Diagnoses Substernal chest pain R07.2 Neck pain on right side M54.2 Mixed hyperlipidemia E78.2 Type II diabetes mellitus E11.9 Benign essential hypertension I10 Aortic aneurysm I71.9 Aortic stenosis I35.0
[2021-09-24 15:18] VITALS: BP 113/68; PULSE 64
[2021-09-24] MEDS ORDERED: ASPIRIN 81 MG ECTAB PO SCH (21:00)
== END 2021-09-24 15:59 | disposition home or self-care (01) ==
LOC: ED 17:31 → 2W 17:31 → SUATTDRO 22:34 → 2W 22:54

== ENCOUNTER 2022-04-09 22:24 | Inpatient (IN) ==
[2022-04-09] MEDS ORDERED: SODIUM CHLORIDE 0.9% 1000ML 1,000 ML IV ONE (22:58)
[2022-04-09] MEDS ORDERED: PANTOprazole 40 MG in SYRINGE 0 ML IV ONE (23:31)
--- NOTE | 2022-04-09 23:35 | Emergency Department Note ---
History of Present Illness General Chief complaint: Rectal Bleed Stated complaint: DARK BLOODY STOOL Time Seen by Provider: 04/09/22 22:57 History of Present Illness 86-year-old female presents emergency department with a 9-hour history of black stools. Patient has been taking Motrin and 6 Tylenol combination for the past few weeks due to hip pain. Patient states she takes approximately 6 pills daily. Patient denies any nausea vomiting hematemesis. Patient states black stools this evening. Patient denies weakness or dizziness. Patient does take a daily baby aspirin. Patient denies any specific abdominal pain. There are no other mitigating or alleviating factors Home Medications Medication Instructions Recorded Confirmed Type aspirin 81 mg tablet,delayed 81 mg PO QAM 12/01/20 04/09/22 History release lisinopril 20 mg tablet 20 mg PO QAM #90 tabs 01/24/21 04/09/22 Rx metformin 1,000 mg tablet 1,000 mg PO BID #180 tabs 01/25/21 04/09/22 Rx blood-glucose meter (ISBXTouch #1 ea 06/14/21 04/06/22 Rx Verio Reflect Start kit) lancing device with lancets kit #100 ea 06/14/21 04/06/22 Rx (OneTouch Delica Lancing Device kit) blood sugar diagnostic (OneTouch #50 ea 06/23/21 04/06/22 Rx Verio test strips) glimepiride 4 mg tablet 4 mg PO BID #180 tabs 12/20/21 04/09/22 Rx acetaminophen 650 mg 650 mg PO Q8H PRN Pain 01/27/22 04/09/22 History tablet,extended release magnesium oxide 500 mg capsule 500 mg PO QAM 01/27/22 04/09/22 History mecobalamin (vitamin B12) 1,000 1,000 mcg PO QAM 01/27/22 04/09/22 History mcg chewable tablet (B12 Active) rosuvastatin 40 mg tablet 40 mg PO QAM 01/27/22 04/09/22 History Papaya Extract 3 tabs PO DAILY 04/09/22 04/09/22 History Allergies Allergy/AdvReac Type Severity Reaction Status Date / Time nifedipine AdvReac Unknown pt states Verified 04/09/22 23:50 unable to tolerate-does not remember what occurred Past Med/Surg History Medical History Aortic aneurysm Stable per patient - follows with PCP US AAA 07/22/21= "No significant change in an infrarenal abdominal aortic aneurysm, measuring 3.1 cm." Aortic stenosis Moderate on 09/24/21 echo: max PG 55 mmHg, mean PG 31 mmHg, MICHELLE (I,D) 0.8 and MICHELLE (V.D) 0.9 Benign essential hypertension Carotid artery stenosis - No hemodynamically significant stenosis per 08/2021 neck CTA - Per 04/17/19 carotid doppler: <50% stenosis to bilateral ICAs, >50% stenosis to left ECA Difficult intubation Done under GA with Grade 3 view with MAC #3. DL x2- anterior- unable to pass ETT even with cricoid pressure. Glidescope x 1, atraumatic Hyperparathyroidism Follows with endo Lumbar radicular pain Extensive epidural fibrosis Lumbar stenosis with neurogenic claudication Mixed hyperlipidemia Osteopenia Peripheral vascular disease Postlaminectomy syndrome of lumbosacral region Short-term memory loss Type II diabetes mellitus Glucose controlled per patient Surgical History History of cataract surgery R/L History of colonoscopy History of fusion of lumbar spine lumbar vertebral fusion. 01/08/18: "good view with GS#3, ETT 7.0. L2-L3 decompression/fusion, L3-L4 hardware removal 12/20/20: Grade 3 view, Glidescope 3, ETT 7. "Unable to pass ETT even with pressure. Glidescope x 1 ..." History of hysterectomy History of hysterectomy total with unilateral removal of ovary History of laparoscopic cholecystectomy History of surgical fusion joint sacroiliac joint fusion: 07/05/17: Grade 2 view, Glidescope 3, ETT 7.5. History of tonsillectomy History of umbilical hernia repair Family History Father Myocardial infarction Unknown Ovarian cancer granddaughter Daughter Thyroid cancer Malignant neoplasm of kidney Mother Diabetes Brother Diabetes Denies family history of Prostate cancer Breast cancer Colorectal cancer Social History Smoking Status: Never smoker Second Hand Exposure: No; Hx Alcohol Use: Yes Alcohol type: hard liquor Hx Substance Use: No Preferred Language: [place] Communication Ability: Effective Visual Impairment: No Limitations Hearing Ability: Use of Hearing Aid Port Surveyor Required: No Beliefs That Will Affect Care: None marital status: Current Living Situation: Spouse current occupational status: retired Feels Safe at Home: Yes Childhood Exposure to Second-Hand Smoke: Yes caffeine: No during the past year weight has: remained stable Dental Care, Regularly: Yes Physical Activity Frequency: 3-4 Times per Week Seatbelt Use: always Sunscreen Use: Yes Assistive Devices: Cane, Hearing Aid - Bilateral and Other Review of Systems A total of 10 systems reviewed and were otherwise negative Constitutional: no fever Respiratory: no cough Cardiovascular: no chest pain Gastrointestinal: + melena; no abdominal pain, no nausea, no coffee ground emesis and no hematemesis Physical Exam Vital Signs Vital Signs - 24 hr 04/09/22 22:27 04/09/22 23:02 04/09/22 23:44 Temperature 36.6 C Temperature Source Temporal Artery Scan Pulse Rate 86 73 Pulse Rate [Apical] 131 H Pulse Rhythm Regular Pulse Strength Normal Respiratory Rate 18 20 16 Respiratory Effort / Characteristics Non-Labored Spontaneous Respiratory Depth Normal Respiratory Pattern Regular Blood Pressure 118/68 Blood Pressure [Right Arm] 131/63 Blood Pressure Mean 84 Blood Pressure Mean [Right Arm] 85 Blood Pressure Position Sitting Pulse Oximetry 96 97 97 Oxygen Delivery Method Room Air Room Air Room Air Sepsis Recent Fever Within 48 Hours No Sepsis New/Unexplained Change in Mental Status N/A Sepsis Action Taken by Nursing No Action Required 04/10/22 00:00 04/10/22 01:00 04/10/22 01:00 Temperature Temperature Source Pulse Rate 69 69 Pulse Rate [Apical] Pulse Rhythm Pulse Strength Respiratory Rate 20 17 Respiratory Effort / Characteristics Respiratory Depth Respiratory Pattern Blood Pressure 120/57 L 124/61 Blood Pressure [Right Arm] Blood Pressure Mean 78 82 Blood Pressure Mean [Right Arm] Blood Pressure Position Pulse Oximetry Oxygen Delivery Method Sepsis Recent Fever Within 48 Hours Sepsis New/Unexplained Change in Mental Status Sepsis Action Taken by Nursing 04/10/22 01:30 04/10/22 02:00 Temperature Temperature Source Pulse Rate 69 69 Pulse Rate [Apical] Pulse Rhythm Pulse Strength Respiratory Rate 16 18 Respiratory Effort / Characteristics Respiratory Depth Respiratory Pattern Blood Pressure 122/64 Blood Pressure [Right Arm] Blood Pressure Mean 83 Blood Pressure Mean [Right Arm] Blood Pressure Position Pulse Oximetry 96 Oxygen Delivery Method Room Air Sepsis Recent Fever Within 48 Hours Sepsis New/Unexplained Change in Mental Status Sepsis Action Taken by Nursing GENERAL: Patient is awake alert in no acute distress patient is resting comfo rtably and showing no signs of anxiety EYES: The conjunctivae are clear. The pupils are round and reactive. EARS, NOSE, MOUTH AND THROAT: The nose is without any evidence of any deformity. Mucous membranes are moist. Tongue is midline. NECK: The neck is nontender and supple. RESPIRATORY: Normal respiratory effort is noted there is no evidence of wheezing rhonchi or rales CARDIOVASCULAR: Regular rate and rhythm noted there no murmurs rubs or gallops normal S1 normal S2. GASTROINTESTINAL: The abdomen is soft. Abdomen is nontender. Rectal exam with jack machine operator present patient has heme positive melanotic stool PELVIS: The Pelvis is stable. No tenderness to palpation is noted. BACK: No midline tenderness or or step-off noted range of motion in flexion extension as well as rotation no signs of muscle spasm noted MUSCULOSKELETAL/EXTREMITIES: There is no evidence of gross deformity full range of motion is noted in the hips and shoulders. SKIN: There is no obvious evidence of any rash. There are no petechiae, pallor or cyanosis noted. NEUROLOGIC: Patient is awake alert and oriented x3 strength is symmetric Course Reevaluation(s) Reevaluation #1: Patient is resting in no distress no active bleeding's vital signs are stable. Patient was given IV Protonix. Patient will be admitted for upper GI bleeding Time: 00:58 Consultations Consultation #1: Spoke with Dr Tomlinson for admit; Time: 01:13 Administered Medications Discontinued Medications Sodium Chloride (Nss 1000ml) 1,000 mls @ 999 mls/hr IV .Q1H1M ONE Stop: 04/09/22 23:58 Last Infusion: 04/10/22 00:58 Dose: 0 mls/hr Documented By: Admin: 04/09/22 23:09 Dose: 999 mls/hr Documented By: JUSTYNA Pantoprazole Sodium 40 mg/ (Syringe) 10 mls @ 5 mls/min IV NOW ONE Stop: 04/09/22 23:32 Last Admin: 04/09/22 23:41 Dose: 5 mls/min Documented By: JUSTYNA Medical Decision Making Medical Records Attestation: I reviewed the patient's medical records. Home Medications Current Medication List: was personally reviewed by me Laboratory Data Attestation: I reviewed the patient's lab results. Result diagrams: 04/09/22 23:00 04/09/22 23:00 Lab Results 04/09/22 04/09/22 04/09/22 Range/Units 23:00 23:00 23:00 WBC 7.59 (4.8-10.8) K/ul RBC 3.44 L (3.93-5.22) M/uL Hgb 11.1 L (12.0-16.0) g/dl Hct 33.9 L (34.1-44.9) % MCV 98.5 (80.0-100.0) fL MCH 32.3 (25.0-34.0) pg MCHC 32.7 (32.0-36.0) g/dL RDW Std Deviation 47.8 H (36.4-46.3) fL RDW Coeff of Delvin 13.2 (11.5-14.5) % Plt Count 214 (130-400) K/uL MPV 10.8 (9.4-12.3) fL Immature Gran % (Auto) 0.3 % Neut % (Auto) 53.5 % Lymph % (Auto) 34.1 % [place] % (Auto) 10.1 % Eos % (Auto) 1.7 % Baso % (Auto) 0.3 % Neut # (Auto) 4.06 (1.4-6.5) K/uL Lymph # (Auto) 2.59 (1.2-3.4) K/uL [place] # (Auto) 0.77 (0.24-0.82) K/uL Eos # (Auto) 0.13 (0-0.50) K/uL Baso # (Auto) 0.02 (0-0.2) K/uL Immature Gran # (Auto) 0.02 (0.00-0.02) K/uL PT 10.8 (9.0-12.0) Seconds INR 1.0 (0.9-1.1) Sodium 141 (136-145) mmol/L Potassium 4.5 (3.5-5.1) mmol/L Chloride 109 H (98-107) mmol/L Carbon Dioxide 25 (21-32) mmol/L Anion Gap 7 (3-11) BUN 47 H (6-23) mg/dl Creatinine 1.10 (0.6-1.2) mg/dl Est Cr Clr Drug Dosing 33.3 ml/min Est GFR ( Amer) 53.4 ml/min Est GFR (Non-Af Amer) 46.1 ml/min BUN/Creatinine Ratio 42.7 H (10-20) Glucose 136 H (70-99(Fasting)) mg/dl Lactate (0.4-2.0) mmol/L Calcium 10.4 H (8.5-10.1) mg/dl Magnesium 1.7 (1.7-2.4) mg/dl Total Bilirubin 0.3 (0.2-1.0) mg/dl Direct Bilirubin 0.0 (0-0.2) mg/dl AST 14 (13-39) U/L ALT 11 (7-52) U/L Alkaline Phosphatase 38 (34-104) U/L Troponin I High Sens 5.5 (0-14) pg/ml Total Protein 6.3 (6.0-8.3) gm/dl Albumin 4.0 (3.4-5.0) gm/dl Procalcitonin (0-0.5) ng/ml SARS-CoV-2, RNA, NAAT (NEGATIVE) 04/09/22 04/09/22 04/10/22 Range/Units 23:18 23:18 00:34 WBC (4.8-10.8) K/ul RBC (3.93-5.22) M/uL Hgb (12.0-16.0) g/dl Hct (34.1-44.9) % MCV (80.0-100.0) fL MCH (25.0-34.0) pg MCHC (32.0-36.0) g/dL RDW Std Deviation (36.4-46.3) fL RDW Coeff of Delvin (11.5-14.5) % Plt Count (130-400) K/uL MPV (9.4-12.3) fL Immature Gran % (Auto) % Neut % (Auto) % Lymph % (Auto) % [place] % (Auto) % Eos % (Auto) % Baso % (Auto) % Neut # (Auto) (1.4-6.5) K/uL Lymph # (Auto) (1.2-3.4) K/uL [place] # (Auto) (0.24-0.82) K/uL Eos # (Auto) (0-0.50) K/uL Baso # (Auto) (0-0.2) K/uL Immature Gran # (Auto) (0.00-0.02) K/uL PT (9.0-12.0) Seconds INR (0.9-1.1) Sodium (136-145) mmol/L Potassium (3.5-5.1) mmol/L Chloride (98-107) mmol/L Carbon Dioxide (21-32) mmol/L Anion Gap (3-11) BUN (6-23) mg/dl Creatinine (0.6-1.2) mg/dl Est Cr Clr Drug Dosing ml/min Est GFR ( Amer) ml/min Est GFR (Non-Af Amer) ml/min BUN/Creatinine Ratio (10-20) Glucose (70-99(Fasting)) mg/dl Lactate 1.1 (0.4-2.0) mmol/L Calcium (8.5-10.1) mg/dl Magnesium (1.7-2.4) mg/dl Total Bilirubin (0.2-1.0) mg/dl Direct Bilirubin (0-0.2) mg/dl AST (13-39) U/L ALT (7-52) U/L Alkaline Phosphatase (34-104) U/L Troponin I High Sens (0-14) pg/ml Total Protein (6.0-8.3) gm/dl Albumin (3.4-5.0) gm/dl Procalcitonin < 0.05 (0-0.5) ng/ml SARS-CoV-2, RNA, NAAT NEGATIVE (NEGATIVE) Imaging Data Attestation: I personally reviewed and interpreted this imaging study as follows: My Impression: Chest x-ray interpreted by me cardiomegaly negative for infiltrate ECG Data Attestation: I personally reviewed and interpreted this ECG as follows: Additional Comments: EKG interpreted by me normal sinus rhythm rate of 71 normal intervals normal axis no obvious ST segment elevation or depression MDM Narrative Decision making differential diagnosis includes upper GI bleed, ulcer, anemia, metabolic derangement, dehydration, colon cancer. Plan is to check labs, evaluate for upper GI bleed Patient was evaluated for upper GI bleeding was found to have melena and heme positive stool. Patient's hemoglobin is currently stable. Patient was given IV Protonix. Patient's BUN is elevated. I suspect an upper GI bleed likely an ulcer from NSAIDs. Patient will be admitted to the hospitalist Impression & Plan Acute upper gastrointestinal bleeding Discharge Plan Visit Data Chief Complaint: Rectal Bleed Stated Complaint: DARK BLOODY STOOL ED Provider: William Osborne Discharge Problem: Acute upper gastrointestinal bleeding Patient Disposition: Being Evaluated by Hospitalist Forms Stand Alone Forms: My [facility] Prescriptions Prescriptions: No Action lisinopril 20 mg tablet 20 mg PO QAM Qty: 90 3RF metformin 1,000 mg tablet 1,000 mg PO BID Qty: 180 3RF (DME) OneTouch Verio test strips Strip See Rx Instructions .Route Qty: 50 3RF Rx Instructions: TEST ONCE DAILY glimepiride 4 mg tablet 4 mg PO BID Qty: 180 3RF (DME) blood-glucose meter [OneTouch Verio Reflect Start] Kit See Rx Instructions .Route Qty: 1 0RF Rx Instructions: As directed (DME) lancing device with lancets [ISBXTouch Delica Lanc Device] Kit See Rx Instructions .Route Qty: 100 0RF Rx Instructions: As directed aspirin 81 mg Tablet,Delayed Release (Dr/Ec) 81 mg PO QAM acetaminophen 650 mg Tablet Extended Release 650 mg PO Q8H PRN (Reason: Pain) rosuvastatin 40 mg tablet 40 mg PO QAM magnesium oxide 500 mg capsule 500 mg PO QAM B12 Active 1,000 mcg tablet,chewable 1,000 mcg PO QAM Papaya Extract 3 tabs PO DAILY Referrals Referrals: Dominguez Cavanaugh DO [Primary Care Provider] -
[2022-04-09 23:40] LABS: Basophils # (auto) 0.02 K/uL (0-0.2); Basophils % (auto) 0.3 %; Eosinophils # (auto) 0.13 K/uL (0-0.50); Eosinophils % (auto) 1.7 %; Hematocrit (blood only) 33.9 % (34.1-44.9); Hemoglobin 11.1 g/dl (12.0-16.0); Immature Granulocytes # (auto) 0.02 K/uL (0.00-0.02); Immature Granulocytes % (auto) 0.3 %; Lymphocytes # (auto) 2.59 K/uL (1.2-3.4); Lymphocytes % (auto) 34.1 %; Mean Corpuscular Hemoglobin 32.3 pg (25.0-34.0); Mean Corpuscular Hgb Conc 32.7 g/dL (32.0-36.0); Mean Corpuscular Volume 98.5 fL (80.0-100.0); Mean Platelet Volume 10.8 fL (9.4-12.3); Monocytes # (auto) 0.77 K/uL (0.24-0.82); Monocytes % (auto) 10.1 %; Neutrophils # (auto) 4.06 K/uL (1.4-6.5); Neutrophils % (auto) 53.5 %; Platelet Count 214 K/uL (130-400); RDW Coefficient of Variation 13.2 % (11.5-14.5); RDW Standard Deviation 47.8 fL (36.4-46.3); Red Blood Count 3.44 M/uL (3.93-5.22); White Blood Count 7.59 K/ul (4.8-10.8)
[2022-04-10 00:14] LABS: Troponin I High Sensitivity 5.5 pg/ml (0-14)
[2022-04-10 00:42] LABS: Prothrombin Time 10.8 Seconds (9.0-12.0)
[2022-04-10 00:46] LABS: BUN Creatinine Ratio 42.7 (10-20); Bilirubin,Total 0.3 mg/dl (0.2-1.0); Calcium 10.4 mg/dl (8.5-10.1); Creatinine Clr Calc Pharmacy 33.3 ml/min; Est GFR (African American) 53.4 ml/min; Est GFR (Non-African American) 46.1 ml/min; Magnesium 1.7 mg/dl (1.7-2.4); Potassium 4.5 mmol/L (3.5-5.1); Total Protein 6.3 gm/dl (6.0-8.3)
[2022-04-10] MEDS ORDERED: GLUCOSE 10 TAB/TUBE PO PRN (02:27)
[2022-04-10] MEDS ORDERED: GLUCOSE 40% GEL 15 GM TUBE PO PRN (02:27)
[2022-04-10] MEDS ORDERED: DEXTROSE 50% 50 ML SYRINGE IV PRN (02:27)
[2022-04-10] MEDS ORDERED: GLUCAGON FOR INJ 1 MG VIAL SQ PRN (02:27)
[2022-04-10] MEDS ORDERED: CARBOHYDRATES FOR HYPOGLYCEMIA PO PRN (02:27)
[2022-04-10 03:12] LABS: Appearance Urine Clear (Clear); Bacteria Urine Automated Negative (Negative); Bilirubin Urine Negative (Negative); Blood Urine Negative (Negative); Cast Urine Automated 0 /lpf (0-5); Color Urine Yellow; Epithelial Cell Urine Auto 20-30 /lpf (0-5); Glucose Urine UA Negative (Negative); Ketones Urine Negative (Negative); Leukocyte Esterase Urine Trace (Negative); Nitrite Urine Negative (Negative); Protein Urine Negative (Negative); RBC Urine Automated 0-4 /hpf (0-4); Specific Gravity Urine 1.019 (1.000-1.030); Urobilinogen Urine Negative (Negative)
--- NOTE | 2022-04-10 03:31 | History & Physical Report ---
Date of Service April 10, 2022 Assessment & Plan (1) Acute upper gastrointestinal bleeding: Plan: 86 y/o F Hx HTN, HLD, DM II, osteoarthritis with frequent NSAID use. The pt presents with black stool x 1 day. She denies nausea/vomiting. She did have lower abdominal pain prior to admission. The pt has been taking ibuprofen and Aleve due to chronic pain in her R hip. Labs are notable for an elevated BUN and mild anemia which is new. 1) GI bleed - trend Hb, GI consult, PPi, NPO, IVF. Transfuse PRN. 2) HTN - cont Lisinopril following likely endoscopy 3) DM II - sliding scale 4) HLD - cont statin Full code - SCDs Total time for this admit including review of labs, meds, imaging, records, imaging - discussion with pt and ER attending - 38 min (2) Type II diabetes mellitus: History of Present Illness Chief Complaint: GI bleed Primary Care Provider: Dominguez Cavanaugh, DO 86 y/o F Hx HTN, HLD, DM II, osteoarthritis with frequent NSAID use. The pt presents with black stool x 1 day. She denies nausea/vomiting. She did have lower abdominal pain prior to admission. The pt has been taking ibuprofen and Aleve due to chronic pain in her R hip. Labs are notable for an elevated BUN and mild anemia which is new. PMH: 1) HTN 2) HLD 3) DM II 4) AAA 5) Moderate Surgical: 1) Lumbar stenosis 2) Gluteal tendon 3) Cholecystectomy 4) Umbilical hernia 5) Hysterectomy 6) Cataracts 7) Tonsillectomy Social: Does not drink or smoke Family: Father due to [place] Mother ovarian CA Allergies Allergy/AdvReac Type Severity Reaction Status Date / Time nifedipine AdvReac Unknown pt states Verified 04/09/22 23:50 unable to tolerate-does not remember what occurred Home Medications Medication Instructions Recorded Confirmed Type aspirin 81 mg tablet,delayed 81 mg PO QAM 12/01/20 04/09/22 History release lisinopril 20 mg tablet 20 mg PO QAM #90 tabs 01/24/21 04/09/22 Rx metformin 1,000 mg tablet 1,000 mg PO BID #180 tabs 01/25/21 04/09/22 Rx blood-glucose meter (OneTouch #1 ea 06/14/21 04/06/22 Rx Verio Reflect Start kit) lancing device with lancets kit #100 ea 06/14/21 04/06/22 Rx (OneTouch Delica Lancing Device kit) blood sugar diagnostic (OneTouch #50 ea 06/23/21 04/06/22 Rx Verio test strips) glimepiride 4 mg tablet 4 mg PO BID #180 tabs 12/20/21 04/09/22 Rx acetaminophen 650 mg 650 mg PO Q8H PRN Pain 01/27/22 04/09/22 History tablet,extended release magnesium oxide 500 mg capsule 500 mg PO QAM 01/27/22 04/09/22 History mecobalamin (vitamin B12) 1,000 1,000 mcg PO QAM 01/27/22 04/09/22 History mcg chewable tablet (B12 Active) rosuvastatin 40 mg tablet 40 mg PO QAM 01/27/22 04/09/22 History Papaya Extract 3 tabs PO DAILY 04/09/22 04/09/22 History Past Med/Surg History Medical History Aortic aneurysm Stable per patient - follows with PCP US AAA 07/22/21= "No significant change in an infrarenal abdominal aortic aneurysm, measuring 3.1 cm." Aortic stenosis Moderate on 09/24/21 echo: max PG 55 mmHg, mean PG 31 mmHg, MICHELLE (I,D) 0.8 and MICHELLE (V.D) 0.9 Benign essential hypertension Carotid artery stenosis - No hemodynamically significant stenosis per 08/2021 neck CTA - Per 04/17/19 carotid doppler: <50% stenosis to bilateral ICAs, >50% stenosis to left ECA Difficult intubation Done under GA with Grade 3 view with MAC #3. DL x2- anterior- unable to pass ETT even with cricoid pressure. Glidescope x 1, atraumatic Hyperparathyroidism Follows with endo Lumbar radicular pain Extensive epidural fibrosis Lumbar stenosis with neurogenic claudication Mixed hyperlipidemia Osteopenia Peripheral vascular disease Postlaminectomy syndrome of lumbosacral region Short-term memory loss Type II diabetes mellitus Glucose controlled per patient Surgical History History of cataract surgery R/L History of colonoscopy History of fusion of lumbar spine lumbar vertebral fusion. 01/08/18: "good view with GS#3, ETT 7.0. L2-L3 decompression/fusion, L3-L4 hardware removal 12/20/20: Grade 3 view, Glidescope 3, ETT 7. "Unable to pass ETT even with pressure. Glidescope x 1..." History of hysterectomy History of hysterectomy total with unilateral removal of ovary History of laparoscopic cholecystectomy History of surgical fusion joint sacroiliac joint fusion: 07/05/17: Grade 2 view, Glidescope 3, ETT 7.5. History of tonsillectomy History of umbilical hernia repair Family History Father Myocardial infarction Unknown Ovarian cancer granddaughter Daughter Thyroid cancer Malignant neoplasm of kidney Mother Diabetes Brother Diabetes Denies family history of Prostate cancer Breast cancer Colorectal cancer Social History Smoking Status: Never smoker Second Hand Exposure: No; Hx Alcohol Use: Yes Alcohol type: hard liquor Hx Substance Use: No Preferred Language: Lao Communication Ability: Effective Visual Impairment: No Limitations Hearing Ability: Use of Hearing Aid Pattern Marker Required: No Beliefs That Will Affect Care: None marital status: Current Living Situation: Spouse current occupational status: retired Feels Safe at Home: Yes Childhood Exposure to Second-Hand Smoke: Yes caffeine: No during the past year weight has: remained stable Dental Care, Regularly: Yes Physical Activity Frequency: 3-4 Times per Week Seatbelt Use: always Sunscreen Use: Yes Assistive Devices: Cane, Hearing Aid - Bilateral and Other Review of Systems Review of Systems: Gen: Denies fevers, night sweats, rigors, fatigue, malaise, weight loss/gain ENT: Denies congestion, throat pain, hearing loss Eyes: Denies acute visual changes CV: Denies CP, palpitations Pulmonary: Denies SOB, cough, wheezing GI: Black school and some cramping which has resolved Neuro: Denies acute or unilateral weakness, acute gait impairment, headache or acute visual changes Musculoskeletal: Denies joint pain, inflammation Endocrine: Denies polydipsia, polyuria Skin: Denies acute rashes or ulcers Physical Exam Physical Exam: General: AAO x 3, no distress ENT: No erythema or exudates, no thrush Eyes: YONNY, EOMI Head and neck: Normocephalic, atraumatic, No JVD, neck is supple. Chest/heart: Nontender, S1,2, RRR, no murmurs, no gallops Lungs: CTAB, no wheezing or crackles Abdomen: Nontender, nondistended, BS+ Neuro: AAO x 3, speech is clear, no unilateral weakness or loss of sensation, coordination intact Musculoskeletal: No joint inflammation, muscle tenderness, FROM Skin: No acute rashes or ulcers Extremities: No clubbing, cyanosis, edema Results & Data Results & Data ([facility]) Vital Signs (Past 12 Hours) Vital Signs Temp Pulse Pulse Resp BP BP Pulse Ox 04/10/22 02:00 69 18 122/64 96 04/10/22 01:30 69 16 04/10/22 01:00 69 17 04/10/22 01:00 124/61 04/10/22 00:00 69 20 120/57 L 04/09/22 23:44 131 H 16 131/63 97 04/09/22 23:02 73 20 97 04/09/22 22:27 97.9 F 86 18 118/68 96 O2 Del Method 04/10/22 02:00 Room Air 04/10/22 01:30 04/10/22 01:00 04/10/22 01:00 04/10/22 00:00 04/09/22 23:44 Room Air 04/09/22 23:02 Room Air 04/09/22 22:27 Room Air PG Care Time/CCT Total # of Minutes Spent Total Time Spent with Patient: Total time spent is greater than 50% in coordination of care (as documented) at patient's floor/unit and/or counseling patient: Coding Level of Care Code 65827 Initial Inpt Care Lvl 2 Diagnoses Acute upper gastrointestinal bleeding K92.2 Type II diabetes mellitus E11.9
[2022-04-10] MEDS: LACTATED RINGER'S 1,000 ML IV SCH ×2 (04:55→20:48)
[2022-04-10] MEDS ORDERED: INSULIN ASPART PER UNIT SC SCH (07:30)
[2022-04-10] MEDS: PANTOprazole 40 MG in SYRINGE 0 ML IV SCH ×2 (07:37→20:48)
--- NOTE | 2022-04-10 08:50 | XRay Report ---
XR chest 1V portable HISTORY: 86 years-old Female Sepsis acute sepsis COMPARISON: Chest radiograph and CTA chest 09/23/2021 TECHNIQUE: Portable AP view of the chest FINDINGS: Cardiac silhouette is enlarged. Atherosclerosis of the aorta. No pneumothorax, large pleural effusion or overt pulmonary edema. There is unchanged mild right hemidiaphragmatic elevation. Mild chronic co arsening of interstitium. No airspace consolidation typical for pneumonia. Degenerative changes of th e shoulders and spine. Lumbar spinal fusion hardware. IMPRESSION: Cardiomegaly without acute process. ACT 112: Negative or not required by law. The above report was generated using voice recognition software. It may contain grammatical, syntax o r spelling errors. Electronically signed by: Austin Perez M.D. 04/10/2022 8:48 AM
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
[2022-04-10] MEDS: INSULIN ASPART PER UNIT SC SCH ×3 (09:36→20:42)
--- NOTE | 2022-04-10 10:53 | Hospitalist Progress Note ---
Date of Service April 10, 2022 Assessment & Plan (1) Acute upper gastrointestinal bleeding: Plan: 86 y/o F Hx HTN, HLD, DM II, osteoarthritis with frequent NSAID use admitted for 1x day melena. 1) GI bleed - likely due to ulcer secondary to prolonged NSAID use for hip pain. Hgb stable at 9.4, hemodynamically stable. No transfusion needed up to now. Continue supportive care with IVF, PPI. EGD scheduled later today. Trend CBC. 2) Hip pain- likely contribution from osteoarthritis but also muscular etiology- piriformis syndrome. Pt would benefit from PT/OMT as outpatient 3) HTN - cont Lisinopril following likely endoscopy 4) DM II - sliding scale, BSGs acceptable 5) HLD - continue statin Disposition: Telemetry Diet- NPO DVT ppx: SCDs Code- full (2) Type II diabetes mellitus: Admission and Anticipated Discharge Date Admission Date: April 10, 2022 Supervising Physician Co-Signing Physician Notes I personally examined the patient and verified all little points of history and exam, discussed case, and agree with decision making with Dr Prasad Hip painnotes that it is from the outside of her hip around her buttocks and in her low back, goes down the back of her leg some. She does also get some degree of groin pain but this is not a predominant feature. Does not really want to have hip surgery. Vitals noted, in general she is awake and alert pleasant no distress. HEENT normocephalic atraumatic mucous membranes moist. Breathing unlabored no accessory muscle use good effort. Skin shows no rashes no pallor or icterus. Bilateral musculoskeletal exam yielding very tense and tender piriformis musculature GI bleed/acute blood loss anemiaalmost certainly upper GI sourceholding NSAIDs, continue PPI, EGD later today. Hip painsuspect that while she does have some degree of bone/joint dysfunction, a huge proportion of her current pain is likely biomechanical. Discussed the role of OMT. We will likely do so later in her hospital stay, Voltaren gel to piriformis region for now, outpatient referral for ongoing OMT. Pharmacologic DVT prophylaxis contraindicated due to GI bleeding Subjective No acute events overnight. Pt reports feeling well, denies any abdominal pain or further bloody stools. No dyspnea or chest pain. Still having her chronic b/l hip pain, has not acutely changed. Review of Systems Review of Systems: Per subjective Physical Exam Constitutional: WD/WN, vitals as above Respiratory: normal respiratory effort Cardiovascular: Rate/Rhythm: regular rate Heart Sounds: + murmur (systolic, LUSB) Gastrointestinal (Abdomen): normal bowel sounds, soft, nontender, no hepatosplenomegaly Musculoskeletal: Head/Neck/Chest: normocephalic Pain to palpation of hip flexor and extensor distribution b/l Psychiatric: Orientation: alert and oriented x 3 Results & Data Results & Data ([facility]) Vital Signs (Past 12 Hours) Vital Signs Temp Pulse Pulse Pulse Resp BP BP 04/10/22 07:21 36.4 C L 69 20 120/72 04/10/22 04:09 36.5 C 79 18 04/10/22 04:09 36.5 C 79 18 04/10/22 03:29 04/10/22 03:28 71 18 04/10/22 02:00 69 18 122/64 04/10/22 01:30 69 16 04/10/22 01:00 69 17 04/10/22 01:00 124/61 04/10/22 00:00 69 20 120/57 L 04/09/22 23:44 131 H 16 04/09/22 23:02 73 20 BP Pulse Ox O2 Del Method 04/10/22 07:21 95 Room Air 04/10/22 04:09 123/62 97 Room Air 04/10/22 04:09 123/62 97 Room Air 04/10/22 03:29 Room Air 04/10/22 03:28 120/61 98 Room Air 04/10/22 02:00 96 Room Air 04/10/22 01:30 04/10/22 01:00 04/10/22 01:00 04/10/22 00:00 04/09/22 23:44 131/63 97 Room Air 04/09/22 23:02 97 Room Air Resident Activity Tracking Resident Involvement: Resident Care Provided Care Provided: Adult Hospital Medicine
--- NOTE | 2022-04-10 12:11 | Anesthesiology Consultation ---
Date of Service April 10, 2022 History Surgery Operation Date: 04/10/22 17:00 Proposed Procedures p Esophagogastroduodenoscopy Dr Marcelino - Darrel Dennison Case, DO Height/Weight Height: 5 ft Weight: 69.3 kg Allergies Allergy/AdvReac Type Severity Reaction Status Date / Time nifedipine AdvReac Unknown pt states Verified 04/09/22 23:50 unable to tolerate-does not remember what occurred Medications Home Medications Medication Instructions Recorded Confirmed Last Taken aspirin 81 mg tablet,delayed 81 mg PO QAM 12/01/20 04/09/22 04/09/22 release lisinopril 20 mg tablet 20 mg PO QAM #90 tabs 01/24/21 04/09/22 04/09/22 metformin 1,000 mg tablet 1,000 mg PO BID #180 tabs 01/25/21 04/09/22 04/09/22 blood-glucose meter (OneTouch #1 ea 06/14/21 04/06/22 Unknown Verio Reflect Start kit) lancing device with lancets kit #100 ea 06/14/21 04/06/22 Unknown (OneTouch Delica Lancing Device kit) blood sugar diagnostic (OneTouch #50 ea 06/23/21 04/06/22 Unknown Verio test strips) glimepiride 4 mg tablet 4 mg PO BID #180 tabs 12/20/21 04/09/22 04/09/22 acetaminophen 650 mg 650 mg PO Q8H PRN Pain 01/27/22 04/09/22 Unknown tablet,extended release magnesium oxide 500 mg capsule 500 mg PO QAM 01/27/22 04/09/22 04/09/22 mecobalamin (vitamin B12) 1,000 1,000 mcg PO QAM 01/27/22 04/09/22 04/09/22 mcg chewable tablet (B12 Active) rosuvastatin 40 mg tablet 40 mg PO QAM 01/27/22 04/09/22 04/09/22 Papaya Extract 3 tabs PO DAILY 04/09/22 04/09/22 04/09/22 Active Medications Generic Name Dose Route Start Last Admin Trade Name Freq PRN Reason Stop Dose Admin Lactated Ringer's 1,000 mls @ 80 mls/hr 04/10/22 04:00 04/10/22 04:55 Lr IV 05/10/22 03:59 80 mls/hr .[id number] HERLINDA Administration Pantoprazole Sodium 40 mg/ 10 mls @ 5 mls/min 04/10/22 09:00 04/10/22 07:37 Syringe IV 05/10/22 08:59 5 mls/min BID HERLINDA Administration Insulin Aspart 0 units 04/10/22 09:30 04/10/22 09:36 Insulin Aspart Per Unit SC 05/10/22 09:29 Not Given Q6H HERLINDA Past Medical History Medical History Aortic aneurysm Stable per patient - follows with PCP US AAA 07/22/21= "No significant change in an infrarenal abdominal aortic aneurysm, measuring 3.1 cm." Aortic stenosis Moderate on 09/24/21 echo: max PG 55 mmHg, mean PG 31 mmHg, MICHELLE (I,D) 0.8 and MICHELLE (V.D) 0.9 Benign essential hypertension Carotid artery stenosis - No hemodynamically significant stenosis per 08/2021 neck CTA - Per 04/17/19 carotid doppler: <50% stenosis to bilateral ICAs, >50% stenosis to left ECA Difficult intubation Done under GA with Grade 3 view with MAC #3. DL x2- anterior- unable to pass ETT even with cricoid pressure. Glidescope x 1, atraumatic Hyperparathyroidism Follows with endo Lumbar radicular pain Extensive epidural fibrosis Lumbar stenosis with neurogenic claudication Mixed hyperlipidemia Osteopenia Peripheral vascular disease Postlaminectomy syndrome of lumbosacral region Short-term memory loss Type II diabetes mellitus Glucose controlled per patient Past Family History Family History Father Myocardial infarction Unknown Ovarian cancer granddaughter Daughter Thyroid cancer Malignant neoplasm of kidney Mother Diabetes Brother Diabetes Denies family history of Prostate cancer Breast cancer Colorectal cancer Past Surgical History Surgical History History of cataract surgery R/L History of colonoscopy History of fusion of lumbar spine lumbar vertebral fusion. 01/08/18: "good view with GS#3, ETT 7.0. L2-L3 decompression/fusion, L3-L4 hardware removal 12/20/20: Grade 3 view, Glidescope 3, ETT 7. "Unable to pass ETT even with pressure. Glidescope x 1..." History of hysterectomy History of hysterectomy total with unilateral removal of ovary History of laparoscopic cholecystectomy History of surgical fusion joint sacroiliac joint fusion: 07/05/17: Grade 2 view, Glidescope 3, ETT 7.5. History of tonsillectomy History of umbilical hernia repair Social History Smoking Status: Never smoker Hx Alcohol Use: Yes Alcohol type: hard liquor alcohol intake frequency: holidays/special occasions only Hx Substance Use: No substance use type: does not use Physical Exam Vital Signs Last Vital Signs Temp 36.4 C L 04/10/22 07:21 Pulse 69 04/10/22 07:21 Resp 20 04/10/22 07:21 BP 120/72 04/10/22 07:21 Pulse Ox 95 04/10/22 07:21 O2 Del Method 04/10/22 07:21 Testing Laboratory Results 04/10/22 11:25 04/09/22 23:00 PT 10.8 Seconds (9.0-12.0) 04/09/22 23:00 INR 1.0 (0.9-1.1) 04/09/22 23:00 Urine Color Yellow 04/10/22 02:45 Urine Appearance Clear (Clear) 04/10/22 02:45 Urine pH 6.0 (4.5-7.5) 04/10/22 02:45 Ur Specific Verner 1.019 (1.000-1.030) 04/10/22 02:45 Urine Protein Negative (Negative) 04/10/22 02:45 Urine Glucose (UA) Negative (Negative) 04/10/22 02:45 Urine Ketones Negative (Negative) 04/10/22 02:45 Urine Nitrite Negative (Negative) 04/10/22 02:45 Ur Leukocyte Esterase Trace (Negative) H 04/10/22 02:45 Urine WBC (Auto) 1-5 /hpf (0-5) 04/10/22 02:45 Urine RBC (Auto) 0-4 /hpf (0-4) 04/10/22 02:45 U Hyaline Cast (Auto) 0 /lpf (0-5) 04/10/22 02:45 U Epithel Cells (Auto) 20-30 /lpf (0-5) H 04/10/22 02:45 Urine Bacteria (Auto) Negative (Negative) 04/10/22 02:45 Blood Type A Positive 04/09/22 23:18 Antibody Screen NEGATIVE 04/09/22 23:18 04/10/22 04/10/22 04/10/22 11:42 07:43 04:07 POC Glucose 102 H 123 H 98 04/10/22 02:58 POC Glucose 88 Electrocardiogram Date: 04/09/2209-Apr-2022 23:11:35 [facility]-EDSTAT ROUTINE RETRIEVAL Normal sinus rhythm Normal ECG When compared with ECG of 02-FEB-2022 11:09, Questionable change in QRS axis Chest X-Ray Date: 04/09/22 HISTORY: 86 years-old Female Sepsis acute sepsis COMPARISON: Chest radiograph and CTA chest 09/23/2021 TECHNIQUE: Portable AP view of the chest FINDINGS: Cardiac silhouette is enlarged. Atherosclerosis of the aorta. No pneumothorax, large pleural effusion or overt pulmonary edema. There is unchanged mild right hemidiaphragmatic elevation. Mild chronic coarsening of interstitium. No airspace consolidation typical for pneumonia. Degenerative changes of the shoulders and spine. Lumbar spinal fusion hardware. IMPRESSION: Cardiomegaly without acute process. Echocardiogram Date: 09/24/21 EF: 65-70% LV Function: normal RWMA: + none Other Findings: + LVH (mild, concentric) Valvular Disease: + (moderate)
--- NOTE | 2022-04-10 15:33 | Electrocardiogram Report ---
Test Reason : Blood Pressure : / mmHG Vent. Rate : 071 BPM Atrial Rate : 071 BPM P-R Int : 144 ms QRS Dur : 078 ms QT Int : 366 ms P-R-T Axes : 022 019 013 degrees QTc Int : 397 ms Normal sinus rhythm Normal ECG When compared with ECG of 02-FEB-2022 11:09, Questionable change in QRS axis Confirmed by Abiodun Fontanez ([id number]) on 04/10/2022 3:32:54 PM Referred By: REFERRED SELF Confirmed By:Abiodun Fontanez
[2022-04-10] MEDS ORDERED: PROPOFOL IV EMULSION 10 MG/ML 20 ML VIAL IV ONE (15:40)
[2022-04-10] MEDS ORDERED: LIDOCAINE 2% MPF LOCAL 5 ML VIAL INFIL ONE (15:40)
[2022-04-10] MEDS ORDERED: METOPROLOL TARTRATE 1 MG/ML VIAL IV ONE (15:40)
--- NOTE | 2022-04-10 16:18 | GI REPORT ---
Patient Name: Barbara Vega Procedure Date: 04/10/2022 3:43 PM Date of : 1935 Admit Type: Inpatient Age: 86 Gender: Female Attending MD: Darrel Marcelino DO Procedure: Upper GI endoscopy Providers: Darrel Marcelino DO Referring MD: William Infante Indications: Acute post hemorrhagic anemia, Melena Medicines: Monitored Anesthesia Care Complications: No immediate complications. Estimated Blood Loss: Estimated blood loss: none. Procedure: Pre-Anesthesia Assessment: - Prior to the procedure, a History and Physical was performed, and patient medications and allergies were reviewed. The patient's tolerance of previous anesthesia was also reviewed. The risks and benefits of the procedure and the sedation options and risks were discussed with the patient. All questions were answered, and informed consent was obtained. Prior Anticoagulants: The patient has taken no previous anticoagulant or antiplatelet agents except for aspirin. ASA Grade Assessment: III - A patient with severe systemic disease. After reviewing the risks and benefits, the patient was deemed in satisfactory condition to undergo the procedure. After obtaining informed consent, the endoscope was passed under direct vision. Throughout the procedure, the patient's blood pressure, pulse, and oxygen saturations were monitored continuously. The Endoscope was introduced through the mouth, and advanced to the second part of duodenum. The upper GI endoscopy was accomplished without difficulty. The patient tolerated the procedure well. Findings: The examined esophagus was normal. Few non-bleeding cratered gastric ulcers with no stigmata of bleeding were found in the gastric antrum. The largest lesion was 4 mm in largest dimension. Biopsies were taken with a cold forceps for histology. The examined duodenum was normal. Impression: - Normal esophagus. - Non-bleeding gastric ulcers with no stigmata of bleeding. Biopsied. - Normal examined duodenum. Recommendation: - [facility]. - Advance diet as tolerated. - Use Protonix (pantoprazole) 40 mg PO BID for 8 weeks, then decrease to 40 mg PO daily. - Await pathology results. - Await pathology results. Darrel Marcelino DO 04/10/2022 4:17:50 PM This report has been signed electronically. Note Initiated On: 04/10/2022 3:43 PM Number of Addenda: 0 I attest to the content of the Intraoperative Record and orders documented therein, exceptions below {[id number]}
--- NOTE | 2022-04-10 16:36 | Anesthesiology Progress Note ---
Date of Service April 10, 2022 Anesthesia Post Procedure Vital Signs Vital Signs: Temp Pulse Pulse Pulse Resp BP BP 04/10/22 16:26 78 16 129/70 04/10/22 16:11 87 16 04/10/22 15:11 37.1 C 75 16 155/75 H 04/10/22 12:43 36.9 C 82 101/64 04/10/22 12:27 36.8 C 80 18 108/66 04/10/22 07:21 36.4 C L 69 20 120/72 04/10/22 04:09 36.5 C 79 18 04/10/22 04:09 36.5 C 79 18 04/10/22 03:29 04/10/22 03:28 71 18 04/10/22 02:00 69 18 122/64 04/10/22 01:30 69 16 04/10/22 01:00 69 17 04/10/22 01:00 124/61 04/10/22 00:00 69 20 120/57 L 04/09/22 23:44 131 H 16 04/09/22 23:02 73 20 04/09/22 22:27 36.6 C 86 18 118/68 BP Pulse Ox O2 Del Method 04/10/22 16:26 95 Room Air 04/10/22 16:11 103/52 L 92 Room Air 04/10/22 15:11 99 Room Air 04/10/22 12:43 97 Room Air 04/10/22 12:27 94 Room Air 04/10/22 07:21 95 Room Air 04/10/22 04:09 123/62 97 Room Air 04/10/22 04:09 123/62 97 Room Air 04/10/22 03:29 Room Air 04/10/22 03:28 120/61 98 Room Air 04/10/22 02:00 96 Room Air 04/10/22 01:30 04/10/22 01:00 04/10/22 01:00 04/10/22 00:00 04/09/22 23:44 131/63 97 Room Air 04/09/22 23:02 97 Room Air 04/09/22 22:27 96 Room Air Transfer of Care Handoff Completed per policy Notes Mental Status: alert / awake / arousable Patient Amnestic to Procedure: Yes Nausea / Vomiting: adequately controlled Pain: adequately controlled Airway Patency, RR, SpO2: stable & adequate BP & HR: stable & adequate Hydration State: stable & adequate Anesthetic Complications: no major complications apparent
--- NOTE | 2022-04-10 17:16 | Billing Data ---
Date of Service April 10, 2022 Coding Level of Care Code 42900 Subseq Hosp Care Lvl 3
--- NOTE | 2022-04-10 17:17 | Billing Data ---
Date of Service April 10, 2022 Coding Level of Care Code 30682 Subseq Hosp Care Lvl 3
[2022-04-10] MEDS: ACETAMINOPHEN 500 MG TAB PO PRN (18:23)
[2022-04-11 06:18] LABS: Hematocrit (blood only) 24.5 % (34.1-44.9); Hemoglobin 8.1 g/dl (12.0-16.0); Mean Corpuscular Hemoglobin 32.9 pg (25.0-34.0); Mean Corpuscular Hgb Conc 33.1 g/dL (32.0-36.0); Mean Corpuscular Volume 99.6 fL (80.0-100.0); Mean Platelet Volume 10.8 fL (9.4-12.3); Platelet Count 168 K/uL (130-400); RDW Coefficient of Variation 12.9 % (11.5-14.5); RDW Standard Deviation 46.6 fL (36.4-46.3); Red Blood Count 2.46 M/uL (3.93-5.22); White Blood Count 5.69 K/ul (4.8-10.8)
[2022-04-11 06:47] LABS: BUN Creatinine Ratio 40.4 (10-20); Calcium 9.3 mg/dl (8.5-10.1); Est GFR (African American) 60.6 ml/min; Est GFR (Non-African American) 52.3 ml/min; Potassium 4.7 mmol/L (3.5-5.1)
[2022-04-11] MEDS: INSULIN ASPART PER UNIT SC SCH ×4 (07:15→20:26)
[2022-04-11] MEDS: PANTOprazole 40 MG in SYRINGE 0 ML IV SCH ×2 (07:25→20:27)
--- NOTE | 2022-04-11 09:00 | Hospitalist Progress Note ---
Date of Service April 11, 2022 Assessment & Plan (1) Acute upper gastrointestinal bleeding: Plan: 86 y/o F Hx HTN, HLD, DM II, osteoarthritis with frequent NSAID use admitted for 1x day melena. 1) Acute upper gastrointestinal hemorrhage -Likely due to ulcers from prolonged NSAID use for hip pain -Hgb drop from 9.4 to 8.1 today, repeat H+H later at 7.9. Pt remains hemodynamically stable. -EGD 04/10- multiple non-bleeding gastric ulcers noted, pathology report pending -Continue supportive care with IVF, PPI -CBC in AM, anticipate discharge tomorrow pending stability 2) Hip pain- likely contribution from osteoarthritis but also muscular etiology- possible piriformis syndrome. Pt would benefit from PT/OMT as outpatient. Voltaren PRN for pain control. 3) HTN - holding lisinopril, BP stable 4) DM II - sliding scale, BSGs acceptable 5) HLD - holding statin given bleed Disposition: Telemetry Diet- NPO DVT ppx: SCDs Code- full (2) Type II diabetes mellitus: Admission and Anticipated Discharge Date Admission Date: April 10, 2022 Supervising Physician Co-Signing Physician Notes I personally examined the patient and verified all little points of history and exam, discussed case, and agree with decision making with Dr Prasad dark black BMs still but otherwise feels better Vitals noted, in general she is awake and alert pleasant no distress. HEENT normocephalic atraumatic mucous membranes moist. Breathing unlabored no accessory muscle use good effort. Skin shows no rashes no pallor or icterus. Bilateral musculoskeletal exam yielding very tense and tender piriformis m usculature GI bleed/acute blood loss anemiafrom PUD - hemodynamically stable - suspect Hgb drop is more from equilibration than ongoing active bleed- but definitely continue to monitor until all parameters are stable. PPI. avoid systemic NSAIDs Hip painsuspect that while she does have some degree of bone/joint dysfunction, a huge proportion of her current pain is likely biomechanical. reiterated the role of OMT. PCP will be able to poultry picker this line of care, Voltaren gel to piriformis region for now. Pharmacologic DVT prophylaxis contraindicated due to GI bleeding Subjective No acute events overnight. Pt had bowel movement earlier in AM, states it was black. Denies abdominal pain, lightheadedness, chest pain. She was eating breakfast without issue. Still having her chronic b/l hip pain, has not acutely changed. Review of Systems Review of Systems: Per subjective Physical Exam Constitutional: WD/WN, vitals as above Respiratory: normal respiratory effort Cardiovascular: Rate/Rhythm: regular rate Heart Sounds: + murmur (systolic, LUSB) Gastrointestinal (Abdomen): normal bowel sounds, soft, nontender, no hepatosplenomegaly Musculoskeletal: Head/Neck/Chest: normocephalic Pain with palpation of lateral hips over trochanters and hip flexor/extensor muscle groups Psychiatric: Orientation: alert and oriented x 3 Results & Data Results & Data ([facility]) Vital Signs (Past 12 Hours) Vital Signs Temp Pulse Pulse Resp BP BP Pulse Ox 04/11/22 07:36 36.8 C 81 16 119/75 04/11/22 02:13 36.7 C 67 18 120/68 96 04/11/22 00:00 70 04/10/22 22:36 36.6 C 67 16 127/70 95 O2 Del Method 04/11/22 07:36 04/11/22 02:13 Room Air 04/11/22 00:00 04/10/22 22:36 Room Air Resident Activity Tracking Resident Involvement: Resident Care Provided Care Provided: Adult Hospital Medicine
--- NOTE | 2022-04-11 09:11 | Gastroenterology Progress Note ---
Date of Service April 11, 2022 Assessment & Plan (1) Melena: Plan: -Continue Protonix 40 mg BID x 8 weeks, then reduce to once daily indefinitely -Avoid NSAIDs Admission and Anticipated Discharge Date Admission Date: April 10, 2022 Supervising Physician Co-Signing Physician Notes Agree with NANCY Mckeon as above Abd: Soft, NT, ND, +BS Continue current therapy and supportive care Will need Pantoprazole 40 mg by mouth BID for 8 weeks, then QD thereafter Subjective Patient is an 86 yo female with anemia & melena. On 04/10/22, she underwent an EGD that indicated gastric ulcers. She had been taking NSAIDs for her joint pain as an outpatient. She notes one dark bowel movement this morning, but notes significant overall improvement in her symptoms. She denies further issues at present. Review of Systems Constitutional: no fever and no chills Respiratory: no cough and no dyspnea Cardiovascular: no chest pain Physical Exam Constitutional: well developed Respiratory: normal respiratory effort Cardiovascular: Rate/Rhythm: regular rate Gastrointestinal (Abdomen): normal bowel sounds, soft, nontender, no hepatosplenomegaly Psychiatric: Orientation: alert and oriented x 3 Results & Data Results & [facility] ([facility]) Vital Signs (Past 12 Hours) Vital Signs Temp Pulse Pulse Resp BP BP Pulse Ox 04/11/22 07:36 36.8 C 81 16 119/75 04/11/22 02:13 36.7 C 67 18 120/68 96 04/11/22 00:00 70 04/10/22 22:36 36.6 C 67 16 127/70 95 O2 Del Method 04/11/22 07:36 04/11/22 02:13 Room Air 04/11/22 00:00 04/10/22 22:36 Room Air PG Care Time/CCT Total # of Minutes Spent Total Time Spent with Patient: Total time spent is greater than 50% in coordination of care (as documented) at patient's floor/unit and/or counseling patient: Coding Level of Care Code 97485 Subseq Hosp Care Lvl 3 Diagnoses Melena K92.1
[2022-04-11] MEDS: DICLOFENAC SOD 1% GEL 100 GM TUBE EXT SCH ×3 (10:13→20:27)
[2022-04-11 10:30] LABS: Hematocrit (blood only) 23.6 % (34.1-44.9); Hemoglobin 7.9 g/dl (12.0-16.0)
[2022-04-11] MEDS: LACTATED RINGER'S 1,000 ML IV SCH ×2 (10:42→23:03)
--- NOTE | 2022-04-11 12:26 | Billing Data ---
Date of Service April 11, 2022 Coding Level of Care Code 23919 Subseq Hosp Care Lvl 3
[2022-04-12 06:31] LABS: Hematocrit (blood only) 22.6 % (34.1-44.9); Hemoglobin 7.6 g/dl (12.0-16.0); Mean Corpuscular Hemoglobin 32.3 pg (25.0-34.0); Mean Corpuscular Hgb Conc 33.6 g/dL (32.0-36.0); Mean Corpuscular Volume 96.2 fL (80.0-100.0); Mean Platelet Volume 10.5 fL (9.4-12.3); Platelet Count 165 K/uL (130-400); RDW Coefficient of Variation 12.9 % (11.5-14.5); RDW Standard Deviation 45.2 fL (36.4-46.3); Red Blood Count 2.35 M/uL (3.93-5.22); White Blood Count 6.64 K/ul (4.8-10.8)
[2022-04-12 06:52] LABS: BUN Creatinine Ratio 26.8 (10-20); Calcium 9.5 mg/dl (8.5-10.1); Creatinine Clr Calc Pharmacy 37.8 ml/min; Est GFR (African American) 62.2 ml/min; Est GFR (Non-African American) 53.6 ml/min; Potassium 3.9 mmol/L (3.5-5.1)
[2022-04-12] MEDS: INSULIN ASPART PER UNIT SC SCH ×2 (08:08→12:26)
[2022-04-12] MEDS: PANTOprazole 40 MG in SYRINGE 0 ML IV SCH (08:13)
[2022-04-12] MEDS: ACETAMINOPHEN 500 MG TAB PO PRN (08:31)
[2022-04-12 10:09] LABS: Hematocrit (blood only) 24.5 % (34.1-44.9); Hemoglobin 8.3 g/dl (12.0-16.0)
--- NOTE | 2022-04-12 10:31 | Discharge Summary ---
Date of Service April 12, 2022 Admission HPI Per Admitting Provider 86 y/o F Hx HTN, HLD, DM II, osteoarthritis with frequent NSAID use. The pt presents with black stool x 1 day. She denies nausea/vomiting. She did have lower abdominal pain prior to admission. The pt has been taking ibuprofen and Aleve due to chronic pain in her R hip. Labs are notable for an elevated BUN and mild anemia which is new. PMH: 1) HTN 2) HLD 3) DM II 4) AAA 5) Moderate Surgical: 1) Lumbar stenosis 2) Gluteal tendon 3) Cholecystectomy 4) Umbilical hernia 5) Hysterectomy 6) Cataracts 7) Tonsillectomy Social: Does not drink or smoke Family: Father due to [place] Mother ovarian CA Admission Exam Per Admitting Provider General: AAO x 3, no distress ENT: No erythema or exudates, no thrush Eyes: YONNY, EOMI Head and neck: Normocephalic, atraumatic, No JVD, neck is supple. Chest/heart: Nontender, S1,2, RRR, no murmurs, no gallops Lungs: CTAB, no wheezing or crackles Abdomen: Nontender, nondistended, BS+ Neuro: AAO x 3, speech is clear, no unilateral weakness or loss of sensation, coordination intact Musculoskeletal: No joint inflammation, muscle tenderness, FROM Skin: No acute rashes or ulcers Extremities: No clubbing, cyanosis, edema Principal Diagnosis GI bleed from NSAID-induced ulcers Discharge Exam Constitutional WD/WN, vitals as above Respiratory normal respiratory effort Cardiovascular Rate/Rhythm: regular rate Heart Sounds: + murmur (systolic, LUSB) Gastrointestinal (Abdomen) normal bowel sounds, soft, nontender, no hepatosplenomegaly Musculoskeletal Head/Neck/Chest: normocephalic Psychiatric Orientation: alert and oriented x 3 Discharge Data Allergies Allergy/AdvReac Type Severity Reaction Status Date / Time nifedipine AdvReac Unknown pt states Verified 04/09/22 23:50 unable to tolerate-does not remember what occurred Consultations 04/10/22 01:11 ED Decision to Admit Stat 04/10/22 04:00 Consult Gastroenterology Routine Procedures Performed Operation Date: 04/10/22 17:00 Actual Procedures p EGD Biopsy Cytology - Darrel Dennison Case, DO Hospital Course (1) Acute upper gastrointestinal bleedin86 y/o F Hx HTN, HLD, DM II, osteoarthritis with frequent NSAID use admitted for 1x day melena. 1) Acute upper gastrointestinal hemorrhage -Likely due to ulcers from prolonged NSAID use for hip pain -Hgb 11 on admission to 9, continued to drop until ~7.5-8 and stable at 8.1 on day of discharge. Pt remained hemodynamically stable throughout hospital stay -EGD 04/10- multiple non-bleeding gastric ulcers noted, pathology report pending at time of discharge -Received supportive care with IVF, PPI. No transfusions given -Still having melena at time of discharge, counseled that this may persist for a few days even if Hgb is stable 2) Hip pain- likely contribution from osteoarthritis but also muscular etiology- possible piriformis syndrome. Pt would benefit from PT/OMT as outpatient- PCP aware and will address. Recommended Tylenol and Voltaren gel for pain control. 3) HTN - holding lisinopril, BP stable during stay 4) DM II - sliding scale, BSGs acceptable during stay 5) HLD - held statin given bleed (2) Type II diabetes mellitus: Total Time Total Time Spent Total Time Spent (In Minutes): 30 Discharge Plan Discharge Items Patient Disposition: Home - Self-Care Reason For Visit: GI BLEED Discharge Diagnosis: GI bleed from ulcers due to NSAID use Activity: Resume your previous activity Non-emergency contact: Primary Care Provider Call non-emergency contact if: you have any medication questions and your symptoms worsen Follow-up/Referrals: Dominguez Cavanaugh, [Primary Care Provider] - 04/19/22 1:00 pm Diet: Carb Consistent or DM2 Addtl Attending Provider Instructions: You were admitted to the hospital for GI bleeding. This was likely due to ulcers which were injured by the side effects of NSAIDs you were using for hip pain. Thankfully your hemoglobin improved without the need for a blood transfusion. Going forward, please avoid excessive NSAID use as this can worsen the ulcers. Tylenol and Voltaren gel are better options for pain relief. Also for your hip pain, your PCP will initiate treatment with OMT which is a form of physical manipulation treating bone/muscle-related causes of pain. Make sure to drink plenty of water and eat well especially over the next few days. A discharge summary will be sent to your primary care physician to ensure continuity of care. Please bring this discharge summary with you to your next office appointment so that your provider can review it at that time. Follow-up appointments: Make a follow-up appointment with your PCP within the next week. It is very important that you follow up with them shortly after discharge from the hospital. Medications: Your medication list has been reviewed and reconciled upon discharge to ensure accuracy and continuity of care. An updated list of all your medications is included with your hospital discharge paperwork. Please review this list closely, and make note of any changes. We sent a new medication called pantoprazole to the pharmacy. This is an acid suppressing medication which is used to treat stomach injury from GI bleeds. You will take pantoprazole 40 mg twice a day (morning and evening) for 8 weeks and then you will take pantoprazole 40 mg once a day after that. Take your medications as instructed; do not skip a dose of your medicines. Make sure all of your doctors know every medicine you are taking (including [id number] medicines, vitamins, and supplements). Call your primary care provider before taking any new medicines (including [id number] medicines, vitamins, and supplements), because some of these may interact with your current medications, or may make your symptoms worse. Tell your primary care provider if you cannot afford your medications. CONTACT YOUR PRIMARY CARE PROVIDER if you experience any of the following: Abdominal pain Chest pain Difficulty breathing Dizziness Dark stools Blood in stool Difficulty following your treatment plan, or difficulty taking medications CALL 911 OR GO TO THE EMERGENCY DEPARTMENT if you experience any of the following: Sudden, severe abdominal pain or nausea/vomiting Severe chest pain, or chest pain that radiates (moves) to your jaw or arm Sudden, severe shortness of breath or difficulty breathing Thank you for allowing us to participate in your care. Pending Studies at Discharge: No Stand-Alone Forms: My [facility] Medications and DC Order Prescriptions: New pantoprazole 40 mg tablet,delayed release (DR/EC) 40 mg PO BID 60 Days Qty: 120 0RF Continued lisinopril 20 mg tablet 20 mg PO QAM Qty: 90 3RF metformin 1,000 mg tablet 1,000 mg PO BID Qty: 180 3RF (DME) OneTouch Verio test strips Strip See Rx Instructions .Route Qty: 50 3RF Rx Instructions: TEST ONCE DAILY glimepiride 4 mg tablet 4 mg PO BID Qty: 180 3RF (DME) blood-glucose meter [OneTouch Verio Reflect Start] Kit See Rx Instructions .Route Qty: 1 0RF Rx Instructions: As directed (DME) lancing device with lancets [OneTouch Delica Lanc Device] Kit See Rx Instructions .Route Qty: 100 0RF Rx Instructions: As directed aspirin 81 mg Tablet,Delayed Release (Dr/Ec) 81 mg PO QAM acetaminophen 650 mg Tablet Extended Release 650 mg PO Q8H PRN (Reason: Pain) rosuvastatin 40 mg tablet 40 mg PO QAM magnesium oxide 500 mg capsule 500 mg PO QAM B12 Active 1,000 mcg tablet,chewable 1,000 mcg PO QAM Papaya Extract 3 tabs PO DAILY Discharge Orders: Discharge Order (Routine); Ordered 04/12/22 Ordered By: Ventura Gil/Other Patient Handouts: Managing Type 2 Diabetes Admission Data Admit Date/Time: 04/10/22 02:27 Attending Provider: William Infante Admit Provider: Marco Tomlinson Primary Care Provider: Dominguez Cavanaugh Other Providers: Marco Tomlinson ; Jacqueline Dutta Other Interventions: Discharge Summary Assessment (RN) Last Done: 04/10/22 16:26 Supervising Physician Co-Signing Physician Notes I personally examined the patient and verified all little points of history and exam, discussed case, and agree with decision making with Dr Prasad feeling much better feels up to going home. discussed outpt f/u, ongoing management - for PUD, anemia, and hip pain Vitals noted, in general she is awake and alert pleasant no distress. HEENT normocephalic atraumatic mucous membranes moist. Breathing unlabored no accessory muscle use good effort. Skin shows no rashes no pallor or icterus. GI bleed/acute blood loss anemiafrom PUD - hemodynamically stable - Hgb has stabilized. stable for home. weekly CBC, protonix. Hip painsuspect that while she does have some degree of bone/joint dysfunction, a huge proportion of her current pain is likely biomechanical. f/u PCP for OMT, tylenol helping, continue Voltaren gel to piriformis region for now. Pharmacologic DVT prophylaxis contraindicated due to GI bleeding stable for home, close outpt f/u, close lab f/u Resident Activity Tracking Resident Involvement: Resident Care Provided Care Provided: Adult [facility] Medicine
[2022-04-12] MEDS: SUCRALFATE 1 GM/10 ML UDC PO SCH ×2 (10:35→12:28)
[2022-04-12] MEDS: DICLOFENAC SOD 1% GEL 100 GM TUBE EXT SCH ×2 (10:37→14:50)
--- NOTE | 2022-04-12 11:20 | Communication Note ---
Date of Service: April 12, 2022 I
--- NOTE | 2022-04-12 11:25 | Communication Note ---
Date of Service: April 12, 2022 After reviewing patient's labs and notes from 04/11/12, her H/H did decline to 7.6/22. This AM it did increase to 8.3/24.5 this AM. She had a formed black stool this AM. Patient was asleep during the time of rounds today, however I did add Carafate QID to her regimen. We will continue to monitor her H/H and bowel movements today and make further recommendations as needed. Agree with NANCY Mckeon as above
[2022-04-12] MEDS: LACTATED RINGER'S 1,000 ML IV SCH (12:00)
--- NOTE | 2022-04-12 12:57 | Billing Data ---
Date of Service April 12, 2022 Coding Level of Care Code D/C DAY MANAGEMENT <30 MINS
== END 2022-04-12 16:42 | disposition home or self-care (01) | DRG 378 ==
LOC: ED 22:24 → 2N 04-10 02:27 → SUATTDRO 04-10 02:27 → 2N 04-10 03:29

== ENCOUNTER 2023-02-23 08:23 | Inpatient (IN) ==
--- NOTE | 2023-02-16 15:35 | Anesthesiology Consultation ---
Date of Service February 16, 2023 Assessment & Plan (1) Encounter for pre-operative examination: - Check BSG AM DOS - COVID screening: Per assessment on 02/16: No known COVID-19 positive contacts or current COVID-19 related symptoms. No recent Covid positive test result. - Hx difficult intubation: * Lumbar vertebral fusion (01/08/18): "good view with GS#3, ETT 7.0. L2-L3 decompression/fusion, L3-L4 hardware removal 12/20/20: Grade 3 view, Glidescope 3, ETT 7. "Unable to pass ETT even with pressure. Glidescope x 1..." * L2-3 D+F, hardware removal L3-4 (12/20/20): MAC#3 x2 (DVL x2- anterior unable to pass ETT even with pressure) > Glidescope#3 x1, ETT# 7, atraumatic at [facility]. - Cardiology visit (02/15/23): "Up until about 2 weeks ago she was water walking 1 hour at a time 3 times a week, and also walking 2 blocks twice a day. However, since her back pain and radiculopathy have worsened, she has been unable to maintain this regular exercise program although she still does some walking. Patient states that when she goes to her water walking class she has to walk up 64 steps to get to the pool. She was and is able to do these activities without limiting cardiopulmonary whatsoever. Patient has not experienced any angina pectoris or anginal equivalent symptoms, overt signs or symptoms of heart failure, nor has she had any symptoms suggestive of dysrhythmia. Patient has not had any focal neurologic symptoms suggestive of stroke or mini stroke. Patient's blood pressure is very well controlled and her most recent echocardiogram November 2022 shows normal LV size and systolic function, LVEF 65% to 70%, moderate to severe aortic valvular stenosis, and mild concentric LVH. Additionally her EKG on 02/06/2023 shows normal sinus rhythm, normal tracing. Patient is compliant with her medications and has not had any adverse side effects. Based on her functional status without limiting cardiopulmonary symptoms up until 2 weeks ago when her neurogenic claudication/back pain became worse, normal LV systolic function on recent Echocardiogram, and her normal EKG tracing -- patient is a low to intermediate cardiac risk for her upcoming spine surgery. There is no need for further ischemic workup at this time. Patient is aware that she may hold her Aspirin leading up to surgery. Hold Metformin x 24 hours leading up to surgery. Patient is also advised to hold Lisinopril the morning of surgery. We do recommend cautious use of perioperative IV fluids with close monitoring of daily body weights and I&O's based on her moderate to severe aortic stenosis. We also recommend DVT prophylaxis as per surgeon. - PCP visit (02/13/23): "Preop medical exam completed for lumbar spinal surgery. Reviewed preop labs, EKG and chest xray. Calcium 10.8 on 02/06/23. Otherwise preop testing is unremarkable. She has received cardiac clearance for lumbar spine surgery. Will contact Dr Olivier in Endocrinology to ensure patient's current calcium level is acceptable prior to lumbar spine surgery." - PCP wrote workload message to endocrine regarding upcoming surgery. Awaiting endocrine workload response + final PCP clearance (per workload note, PCP indicates that they will add addendum to their note after receiving endocrine response). Chart Review Chart Review: Patient NOT seen in Pre Admission Testing History Surgery Operation Date: 02/23/23 12:45 Proposed Procedures p L1-L2 Decompression, T11-L2 Fusion, L2-L4 Hardware Removal with Spinal Cord Monitoring - Carmelo Jones, Height/Weight Height: 5 ft Weight: 73.482 kg Allergies Allergy/AdvReac Type Severity Reaction Status Date / Time nifedipine AdvReac Unknown Sleepiness Verified 02/16/23 15:17 (per records) keflex AdvReac Diarrhea Uncoded 02/16/23 14:28 Medications Home Medications Medication Instructions Recorded Confirmed Last Taken aspirin 81 mg tablet,delayed 81 mg PO QAM 12/01/20 02/16/23 04/09/22 release blood-glucose meter (OneTouch #1 ea 06/14/21 02/15/23 Unknown Verio Reflect Start kit) lancing device with lancets kit #100 ea 06/14/21 02/15/23 Unknown (OneTouch Delica Lancing Device kit) acetaminophen 650 mg 650 mg PO Q8H PRN Pain 01/27/22 02/16/23 Unknown tablet,extended release magnesium oxide 500 mg capsule 500 mg PO QAM 01/27/22 02/16/23 04/09/22 mecobalamin (vitamin B12) 1,000 1,000 mcg PO QAM 01/27/22 02/16/23 04/09/22 mcg chewable tablet (B12 Active) lisinopril 20 mg tablet 20 mg PO QAM #90 tabs 06/13/22 02/16/23 Unknown rosuvastatin 40 mg tablet 40 mg PO QAM 90 days #90 tabs 06/13/22 02/16/23 Unknown tramadol 50 mg tablet 50 mg PO DAILY PRN pain #30 tabs 12/15/22 02/16/23 Unknown blood sugar diagnostic (OneTouch #50 ea 12/22/22 02/15/23 Unknown Verio test strips) cholecalciferol (vitamin D3) 50 4,000 unit PO QAM 02/16/23 02/16/23 Unknown mcg (2,000 unit) capsule glimepiride 4 mg tablet 4 mg PO QAM 02/16/23 02/16/23 Unknown metformin 1,000 mg tablet 1,000 mg PO QAM 02/16/23 02/16/23 Unknown Past Medical History Medical History (Updated 02/16/23 @ 15:26 by Avis Barrios) Aortic aneurysm US AAA 07/22/21- "No significant change in an infrarenal abdominal aortic aneurysm, measuring 3.1 cm" compared to 07/2021 Abdominal aortic US Aortic stenosis Echo 12/08/22: Moderate to severe aortic stenosis (MICHELLE 0.98cm2, MG 20.9 mmhg) Benign essential hypertension Carotid artery stenosis Noted in 2018 carotid doppler but subsequent Neck CTA 08/2021 with no hemodynamically significant stenosis Diabetes mellitus History of gastric ulcer Hyperparathyroidism Follows with endocrine Lumbar radicular pain Extensive epidural fibrosis Lumbar stenosis with neurogenic claudication Mixed hyperlipidemia Osteopenia Peripheral vascular disease Postlaminectomy syndrome of lumbosacral region Short-term memory loss Past Family History Family History Father Myocardial infarction Unknown Ovarian cancer granddaughter Daughter Thyroid cancer Malignant neoplasm of kidney Mother Diabetes Brother Diabetes Denies family history of Prostate cancer Breast cancer Colorectal cancer Past Surgical History Surgical History (Updated 02/16/23 @ 15:26 by Avis Barrios) Difficult intubation Lumbar vertebral fusion (01/08/18): "good view with GS#3, ETT 7.0. L2-L3 decompression/fusion, L3-L4 hardware removal 6/21/21: Grade 3 view, Glidescope 3, ETT 7. "Unable to pass ETT even with pressure. Glidescope x 1..." L2-3 D+F, hardware removal L3-4 (12/20/20): MAC#3 x2 > Glidescope#3 x1, ETT# 7 (DVL x2- anterior unable to pass ETT even with pressure. Glidescope x1, atraumatic at [facility]. History of cataract surgery R/L History of colonoscopy History of esophagogastroduodenoscopy (EGD) EGD (04/10/22): MAC at [facility] History of fusion of lumbar spine lumbar vertebral fusion (01/08/18): "good view with GS#3, ETT 7.0. L2-L3 decompression/fusion, L3-L4 hardware removal 12/20/20: Grade 3 view, Glidescope 3, ETT 7. "Unable to pass ETT even with pressure. Glidescope x 1..." L2-3 D+F, hardware removal L3-4 (12/20/20): MAC#3 x2 > Glidescope#3 x1, ETT# 7 (DVL x2- anterior unable to pass ETT even with pressure. Glidescope x1, atraumatic at [facility]. History of hysterectomy History of hysterectomy total with unilateral removal of ovary History of laparoscopic cholecystectomy History of surgical fusion joint sacroiliac joint fusion: 07/05/17: Grade 2 view, Glidescope 3, ETT 7.5. History of tonsillectomy History of umbilical hernia repair Social History Smoking Status: Never smoker Do You Dip or Chew Tobacco: No Hx Alcohol Use: Yes Alcohol type: hard liquor alcohol intake frequency: holidays/special occasions only Hx Substance Use: No substance use type: does not use Lab Results Anesthesia Preop Results Results Anesthesia Widget: WBC 7.90 K/ul (4.8-10.8) 02/06/23 Hgb 13.5 g/dl (12.0-16.0) 02/06/23 Hct 39.4 % (37.0-47.0) 02/06/23 Plt 254 K/uL (130-400) 02/06/23 Na 139 mmol/L (136-145) 02/06/23 K 5.1 mmol/L (3.5-5.1) 02/06/23 Cl 107 mmol/L (98-107) 02/06/23 CO2 25 mmol/L (21-32) 02/06/23 BUN 32 mg/dl (6-23) H 02/06/23 Creat 1.13 mg/dl (0.6-1.2) 02/06/23 Glucose Level 90 mg/dl (70-99(Fasting)) 02/06/23 PT 10.8 Seconds (9.0-12.0) 02/06/23 PTT 24.6 Seconds (21.0-31.0) 02/06/23 INR 1.0 (0.9-1.1) 02/06/23 Urine Color Yellow 02/06/23 Urine Appearance Clear (Clear) 02/06/23 Urine pH 5.5 (4.5-7.5) 02/06/23 Urine Specific [place] 1.017 (1.000-1.030) 02/06/23 Urine Protein Negative (Negative) 02/06/23 Urine Glucose (UA) Negative (Negative) 02/06/23 Urine Ketones Negative (Negative) 02/06/23 Urine Blood Negative (Negative) 02/06/23 Urine Nitrite Negative (Negative) 02/06/23 Urine Bilirubin Negative (Negative) 02/06/23 Urine Urobilinogen Negative (Negative) 02/06/23 Urine Leukocyte Esterase 2+ (Negative) H 02/06/23 Urine WBC (Auto) 5-10 /hpf (0-5) H 02/06/23 Urine RBC (Auto) 0-4 /hpf (0-4) 02/06/23 Urine Hyaline Casts (Auto) 1-5 /lpf (0-5) 02/06/23 Urine Epithelial Cells (Auto) >30 /lpf (0-5) H 02/06/23 Urine Bacteria (Auto) Negative (Negative) 02/06/23 Blood Type A Positive 02/06/23 Antibody Screen NEGATIVE 02/06/23 Testing Electrocardiogram Date: 02/06/23 Findings: + NSR @ (76) Chest X-Ray Date: 02/06/23 FINDINGS: No lines and tubes are seen. Calcified aortic knob is seen. The lungs are clear. No evidence of pleural effusion or pneumothorax. Incidental note is made of posterior lumbar fixation hardware cholecystectomy clips. IMPRESSION: No acute chest disease. Echocardiogram Date: 12/08/22 EF 65-70%. No RWMA. Mild cLVH. Grade I DD. Mild MR. Borderline dilated ascending aorta. Moderate to severe valvular aortic stenosis (MICHELLE 0.98cm2, MG 20.9mmhg). Other Testing Neck CTA Date: 09/23/21 No occlusion, hemodynamically significant stenosis, or dissection in the major cervical arteries. No evidence of dissection is seen. Assessment of stenosis of the internal carotid arteries is based on NASCET criteria. US Abdominal Aortic Aneurysm Date: 07/22/21 No change in the 3.1 cm infrarenal abdominal aortic aneurysm.
[~2023-02-23 08:23] MED LIST changes: -ACET1TAB84 PO; +ACETAMINOPHEN 500 MG TAB PO SCH; -ASPI-435 PO; -ATOR-22 PO; -COEN100C28 PO; -CYAN500T PO; +CeleBREX 200 MG CAP PO SCH; +GABAPENTIN 300 MG CAP PO SCH; -GLIM2TAB2 PO; +LR 15ML/HR IV SCH; +LR 60ML/HR IV SCH; -METF1000 PO; -PRN10125 PO; -RXC5 PO; -VTMD1000 PO; +ceFAZolin 2000MG 2,000 MG/15 ML SYR IV SCH
[2023-02-23] MEDS ORDERED: ONDANSETRON INJ 2 MG/ML 2 ML VIAL IV PRN ×2 (09:37→15:44)
[2023-02-23] MEDS ORDERED: ePHEDrine sulfate 50 MG/ML AMP IV PRN (09:37)
[2023-02-23] MEDS ORDERED: ATROPINE SULFATE 0.1 MG/ML 10ML SYR IV PRN (09:37)
[2023-02-23] MEDS ORDERED: LIDOCAINE 2% 2 ML VIAL/AMP(20MG/ML) INFIL ONE (10:09)
[2023-02-23] MEDS ORDERED: GLYCOPYRROLATE 0.2 MG/ML VIAL ONE (10:09)
[2023-02-23] MEDS ORDERED: NEOSTIGMINE METHYLSULFATE 1 MG/ML 10ML VIAL ONE (10:09)
[2023-02-23] MEDS ORDERED: DEXAMETHASONE SOD INJ 4 MG/ML VIAL ONE (10:09)
[2023-02-23] MEDS ORDERED: PROPOFOL IV EMULSION 10 MG/ML 20 ML VIAL IV ONE (10:09)
[2023-02-23] MEDS ORDERED: MIDAZOLAM HCL 1 MG/ML 2ML VIAL ONE (10:09)
[2023-02-23] MEDS ORDERED: fentaNYL citrate PF 100 MCG/2 ML VIAL ONE (10:09)
[2023-02-23] MEDS ORDERED: ONDANSETRON INJ 2 MG/ML 2 ML VIAL ONE (10:09)
--- NOTE | 2023-02-23 10:56 | History & Physical Bridge Note ---
Date of Service February 23, 2023 History & Physical Bridge Note I have examined the patient, reviewed the History & Physical and in the interval since the performance of the History & Physical I have noted the following changes of clinical significance: no changes noted
--- NOTE | 2023-02-23 10:58 | History & Physical Report ---
Date of Service February 23, 2023 Assessment & Plan (1) Lumbar stenosis with neurogenic claudication: Plan: L1-L2 decompression, T11-L2 fusion, L2-L4 hardware removal History of Present Illness Chief Complaint: Back and leg pain Primary Care Provider: Dominguez Cavanaugh, DO This is an 87-year-old female presents with chronic persistent back and leg pain and failing course of nonoperative care she is here for surgical invention. Allergies Allergy/AdvReac Type Severity Reaction Status Date / Time cephalexin [From Keflex] AdvReac Intermediate Diarrhea Verified 02/23/23 08:57 nifedipine AdvReac Unknown Sleepiness Verified 02/23/23 08:57 (per records) Home Medications Medication Instructions Recorded Confirmed Type aspirin 81 mg tablet,delayed 81 mg PO QAM 12/01/20 02/23/23 History release blood-glucose meter (OneTouch #1 ea 06/14/21 02/15/23 Rx Verio Reflect Start kit) lancing device with lancets kit #100 ea 06/14/21 02/15/23 Rx (OneTouch Delica Lancing Device kit) acetaminophen 650 mg 650 mg PO Q8H PRN Pain 01/27/22 02/23/23 History tablet,extended release magnesium oxide 500 mg capsule 500 mg PO QAM 01/27/22 02/23/23 History mecobalamin (vitamin B12) 1,000 1,000 mcg PO QAM 01/27/22 02/23/23 History mcg chewable tablet (B12 Active) lisinopril 20 mg tablet 20 mg PO QAM #90 tabs 06/13/22 02/23/23 Rx rosuvastatin 40 mg tablet 40 mg PO QAM 90 days #90 tabs 06/13/22 02/23/23 Rx tramadol 50 mg tablet 50 mg PO DAILY PRN pain #30 tabs 12/15/22 02/23/23 Rx blood sugar diagnostic (OneTouch #50 ea 12/22/22 02/15/23 Rx Verio test strips) cholecalciferol (vitamin D3) 50 4,000 unit PO QAM 02/16/23 02/23/23 History mcg (2,000 unit) capsule glimepiride 4 mg tablet 4 mg PO QAM 02/16/23 02/23/23 History metformin 1,000 mg tablet 1,000 mg PO QAM 02/16/23 02/23/23 History Past Med/Surg History Medical History Aortic aneurysm US AAA 07/22/21- "No significant change in an infrarenal abdominal aortic aneurysm, measuring 3.1 cm" compared to 07/2021 Abdominal aortic US Aortic stenosis Echo 12/08/22: Moderate to severe aortic stenosis (MICHELLE 0.98cm2, MG 20.9 mmhg) Benign essential hypertension Carotid artery stenosis Noted in 2018 carotid doppler but subsequent Neck CTA 08/2021 with no hemodynamically significant stenosis Diabetes mellitus History of gastric ulcer Hyperparathyroidism Follows with endocrine Lumbar radicular pain Extensive epidural fibrosis Lumbar stenosis with neurogenic claudication Mixed hyperlipidemia Osteopenia Peripheral vascular disease Postlaminectomy syndrome of lumbosacral region Short-term memory loss Surgical History Difficult intubation Lumbar vertebral fusion (01/08/18): "good view with GS#3, ETT 7.0. L2-L3 decompression/fusion, L3-L4 hardware removal 12/20/20: Grade 3 view, Glidescope 3, ETT 7. "Unable to pass ETT even with pressure. Glidescope x 1..." L2-3 D+F, hardware removal L3-4 (12/20/20): MAC#3 x2 > Glidescope#3 x1, ETT# 7 (DVL x2- anterior unable to pass ETT even with pressure. Glidescope x1, atraumatic at [facility]. History of cataract surgery R/L History of colonoscopy History of esophagogastroduodenoscopy (EGD) EGD (04/10/22): MAC at [facility] History of fusion of lumbar spine lumbar vertebral fusion (01/08/18): "good view with GS#3, ETT 7.0. L2-L3 decompression/fusion, L3-L4 hardware removal 12/20/20: Grade 3 view, Glidescope 3, ETT 7. "Unable to pass ETT even with pressure. Glidescope x 1..." L2-3 D+F, hardware removal L3-4 (12/20/20): MAC#3 x2 > Glidescope#3 x1, ETT# 7 (DVL x2- anterior unable to pass ETT even with pressure. Glidescope x1, atraumatic at [facility]. History of hysterectomy History of hysterectomy total with unilateral removal of ovary History of laparoscopic cholecystectomy History of surgical fusion joint sacroiliac joint fusion: 07/05/17: Grade 2 view, Glidescope 3, ETT 7.5. History of tonsillectomy History of umbilical hernia repair Family History Father Myocardial infarction Unknown Ovarian cancer granddaughter Daughter Thyroid cancer Malignant neoplasm of kidney Mother Diabetes Brother Diabetes Denies family history of Prostate cancer Breast cancer Colorectal cancer Social History Smoking Status: Never smoker Second Hand Exposure: No; Do You Dip or Chew Tobacco: No; Hx Alcohol Use: Yes Alcohol type: hard liquor Hx Substance Use: No Preferred Language: [place] Island[place] Communication Ability: Effective Visual Impairment: No Limitations Hearing Ability: Use of Hearing Aid Pediatric Hospitalist Required: No Beliefs That Will Affect Care: None marital status: / Current Living Situation: Alone current occupational status: retired current occupation: used to work at [employer] Feels Safe at Home: Yes Safety Concerns: Feels Safe At This Time Childhood Exposure to Second-Hand Smoke: Yes Diet: regular caffeine: No during the past year weight has: remained stable Dental Care, Regularly: Yes Physical Activity Frequency: 3-4 Times per Week Seatbelt Use: always Sunscreen Use: Yes (sometimes ) Assistive Devices: Cane, Glasses and Hearing Aid - Bilateral Physical Exam Physical Exam: Patient is alert and Heart regular rhythm Lungs clear Results & Data Results & Data Vital Signs (Past 12 Hours) Vital Signs Temp Pulse Resp BP Pulse Ox O2 Del Method 02/23/23 09:07 36.4 C L 72 20 137/75 96 Room Air
[2023-02-23] MEDS ORDERED: ALBUMIN HUMAN 5% 12.5 GM/250 ML VIAL IV ONE (11:22)
[2023-02-23] MEDS ORDERED: BUPIVACAINE/EPINEPHRINE 0.25% 1:200,000 30 ML VIAL ONE (11:40)
[2023-02-23] MEDS ORDERED: ceFAZolin 330 MG/ML 1 GM VIAL ONE (11:40)
[2023-02-23] MEDS ORDERED: FLOSEAL HEMOSTATIC MATRIX 10ML TOP ONE (12:22)
[2023-02-23] MEDS ORDERED: SUGAMMADEX SODIUM 200 MG/2 ML VIAL IV ONE (13:35)
--- NOTE | 2023-02-23 13:37 | Operative Report ---
Post Operative Report Pre & Post Diagnosis Operation Date: 02/23/23 10:05 Pre-Op Diagnosis: Lumbar stenosis with neurogenic claudication Post-Op Diagnosis: Lumbar stenosis with neurogenic claudication I identified the patient and participated in the time-out.: Yes Procedure Operation Date: 02/23/23 10:05 Actual Procedures #1 removal of posterior instrumentation L2-L4. #2 exploration of fusion L2-L4. #3 lumbar decompression bilateral medial facetectomies and foraminotomies T12-L1 L1-L2. #4 posterior spinal fusion T11-L2. #5 placement posterior segmental instrumentation T11-L4. #6 interbody fusion L1-L2. #7 placement of Spira 8 x 22 mm at L1-L2. #8 placement locally harvested morselized autograft posterior gutters. #9 placement of I factor in the interbody space and infuse collagen sponge in the posterior gutters T11-L2. Surgeon Carmelo Jones, Apprenticeship Representative Keny Murcia Estimated Blood Loss 100 Findings Consistent with Post-Op Diagnosis Specimens None Indications This is an 87-year-old female presents above-mentioned diagnosis of failed course of nonoperative care she is here for surgical invention Description of Procedure Patient was met with identified informed consent obtained. Patient was then taken to the operative suite underwent ablation placed in a prone position the Demar table on top of the Mark frame. All bony promises well-padded eyes inspected to ensure no external pressure placed upon them. This point the thoracolumbar spine was prepped and draped in a sterile fashion. Sharp dissection with assistance of Bovie cautery form down to and exposing the lamina transverse processes of T11-T12 L1 and instrumentation at L2-L3-L4 bilaterally. Then proceeded move the hardware bilaterally explore the fusion mass noted to be mature and intact. Then formed a complete laminectomy of L1 partial laminectomy of L2 including bilaterally facetectomies and foraminotomies addressing severe spinal stenosis and neuroforaminal disease. Pedicle screws were then placed in T11-T12 L1-L2 L4 bilaterally with assistance of fluoroscopy and appropriately sized cricket contoured and placed. By way of transforaminal approach on the left pleat discectomy of L1-L2 was performed endplates curetted to subcortical bleeding bone and 8 x 22 mm Spira cage with I factor tapped in position. The rods then locked in final position bilaterally. The transverse processes of T11 T12-L1 and L2 burred to subcortically bone. Infuse collagen sponge, master g raft and locally harvested morselized autograft was placed in the posterior gutters. 15 round LAWRENCE drain inserted. The incision was then closed with 1 Vicryl the fascia 2-0 Vicryl subcutaneously and 4 Monocryl for final skin closure. Steri-Strips sterile dressing placed. Patient awakened taken to PACU in stable condition. Please note spinal cord monitoring was utilized at the procedure no changes noted. Lastly Keny Murcia was present at the entire surgeon while the patient positioning complex portion of the surgery and final skin closure. I attest to the content of the Intraoperative Record and any orders documented therein. Any exceptions are noted below.
--- NOTE | 2023-02-23 14:02 | Fluoroscopy Report ---
FL lumbar spine 2-3V CLINICAL HISTORY: L1-L2 DECOMPRESSION T11-L2 FUSION L2-L4 HW REMOVAL TECHNIQUE: 5 views were obtained with the C-arm in the OR with the above procedure. Total fluoroscopy time was 11.6 seconds. Radiation dose was 18.0 mGy. Comparison: Comparison is made to fluoroscopy of the lumbar spine 12/20/2020 FINDINGS/IMPRESSION: Intraoperative images were obtained of L1-L2 decompression, T11-T2 fusion, L2-L4 hardware removal. Please correlate with intraoperative fluoroscopy and operative report. ACT 112: Negative or not required by law. Electronically signed by: Fahad Mckenna M.D. 02/23/2023 2:01 PM
[2023-02-23] MEDS: fentaNYL citrate PF 100 MCG/2 ML VIAL IV PRN ×4 (14:38→14:58)
--- NOTE | 2023-02-23 15:06 | Anesthesiology Progress Note ---
Date of Service February 23, 2023 Anesthesia Post Procedure Vital Signs Vital Signs: Temp Pulse Pulse Resp BP Pulse Ox O2 Del Method 02/23/23 14:45 80 12 137/66 93 Nasal Cannula 02/23/23 14:55 36.8 C 81 14 138/63 96 Nasal Cannula 02/23/23 14:35 78 16 137/67 98 Oxymask 02/23/23 14:25 82 18 148/67 H 97 Oxymask 02/23/23 14:15 90 17 153/67 H 99 Oxymask 02/23/23 14:08 36.5 C 88 16 144/63 H 95 Oxymask 02/23/23 09:07 36.4 C L 72 20 137/75 96 Room Air O2 Flow Rate 02/23/23 14:45 3 02/23/23 14:55 3 02/23/23 14:35 4 02/23/23 14:25 6 02/23/23 14:15 6 02/23/23 14:08 6 02/23/23 09:07 Pain Intensity Bilateral Lower Back: Pain Intensity: 8 Transfer of Care Handoff Completed per policy Notes Mental Status: alert / awake / arousable Patient Amnestic to Procedure: Yes Nausea / Vomiting: adequately controlled Pain: adequately controlled Airway Patency, RR, SpO2: stable & adequate BP & HR: stable & adequate Hydration State: stable & adequate Anesthetic Complications: no major complications apparent and Pt Satisfied with anesthetic care
[2023-02-23] MEDS ORDERED: LORazepam 2 MG/1 ML VIAL IV PRN (15:44)
[2023-02-23] MEDS ORDERED: MAGNESIUM HYDROXIDE SUSP 30 ML UDC PO PRN (15:44)
[2023-02-23] MEDS ORDERED: ALUMINUM/MAGNESIUM SUSP 30 ML UDC PO PRN (15:44)
[2023-02-23] MEDS ORDERED: DO NOT ADMINISTER FLU VACCINE PRN (15:44)
[2023-02-23] MEDS ORDERED: ACETAMINOPHEN 1,000 MG/100 ML VIAL IV PRN (15:44)
[2023-02-23] MEDS ORDERED: METOCLOPRAMIDE HCL INJ 5 MG/ML 2 ML VIAL IV PRN (15:44)
[2023-02-23] MEDS ORDERED: FAMOTIDINE 20 MG TAB PO PRN (15:44)
[2023-02-23] MEDS ORDERED: ACETAMINOPHEN 500 MG TAB PO PRN (15:44)
[2023-02-23] MEDS ORDERED: PHARMACY GLYCEMIC MGMT CONSULT PRN (15:44)
[2023-02-23] MEDS ORDERED: SODIUM CHLORIDE 0.9% 1000ML 1,000 ML IV SCH (15:44)
[2023-02-23] MEDS ORDERED: HYDROmorphone INJ 0.5 MG/0.5 ML SYR IV PRN (15:44)
[2023-02-23] MEDS ORDERED: NALOXONE HCL 0.4 MG/1 ML VIAL/CARP IV PRN (15:44)
[2023-02-23] MEDS ORDERED: bisacodyL 10 MG SUPP PR PRN (15:44)
[2023-02-23] MEDS ORDERED: LORazepam 0.5 MG TAB PO PRN (15:44)
[2023-02-23] MEDS ORDERED: diphenhydrAMINE Capsule 25 MG CAP PO PRN (15:44)
[2023-02-23] MEDS ORDERED: traMADol HCL 50 MG TABLET PO PRN (15:44)
[2023-02-23] MEDS ORDERED: DO NOT ADMINISTER PNEUMOCOCCAL VACCINE PRN (15:44)
[2023-02-23] MEDS ORDERED: ONDANSETRON 4 MG OD TAB PO PRN (15:44)
[2023-02-23] MEDS ORDERED: PROMETHAZINE HCL 12.5 MG in SODIUM CHLORIDE 0.9% 50 ML IV PRN (15:44)
[2023-02-23] MEDS ORDERED: SOD PHOSPHATE/SOD BIPHOSPHATE ENEMA 132 ML BTL PR PRN (15:44)
[2023-02-23] MEDS ORDERED: hydrOXYzine HCl 25 MG TAB PO PRN (15:44)
[2023-02-23] MEDS: INSULIN ASPART PER UNIT CHARGE SC SCH ×2 (16:59→21:32)
[2023-02-23] MEDS: DOCUSATE SODIUM/SENNA 50/8.6MG TAB PO SCH (20:06)
[2023-02-23] MEDS: CLINDAMYCIN/D5W 600 MG/50 ML BAG IV SCH (20:07)
[2023-02-23] MEDS ORDERED: LANTUS PER UNIT CHARGE SC SCH (21:00)
[2023-02-23] MEDS: oxyCODONE HCL IR 5 MG TAB (IMMEDIATE RELEASE) PO PRN (23:56)
[2023-02-24] MEDS: HYDROmorphone INJ 1 MG/ML SYRINGE IV PRN ×3 (02:49→21:10)
[2023-02-24] MEDS: CLINDAMYCIN/D5W 600 MG/50 ML BAG IV SCH (02:50)
[2023-02-24] MEDS: POLYETHYLENE (MIRALAX) 17 GM PACK PO SCH ×4 (05:13→23:09)
[2023-02-24 08:14] LABS: Basophils # (auto) 0.01 K/uL (0.00-0.20); Basophils % (auto) 0.1 %; Hematocrit (blood only) 30.6 % (37.0-47.0); Hemoglobin 10.6 g/dl (12.0-16.0); Immature Granulocytes # (auto) 0.11 K/uL (0.01-0.20); Immature Granulocytes % (auto) 0.8 %; Lymphocytes % (auto) 7.2 %; Mean Corpuscular Hemoglobin 32.9 pg (25.0-34.0); Mean Corpuscular Hgb Conc 34.6 g/dL (32.0-36.0); Monocytes # (auto) 1.01 K/uL (0.11-0.59); Monocytes % (auto) 7.3 %; Neutrophils # (auto) 11.71 K/uL (1.40-6.50); Neutrophils % (auto) 84.6 %; Platelet Count 229 K/uL (130-400); RDW Coefficient of Variation 12.4 % (11.5-14.5); RDW Standard Deviation 42.9 fL (36.4-46.3); Red Blood Count 3.22 M/uL (4.20-5.40); White Blood Count 13.84 K/ul (4.8-10.8)
[2023-02-24] MEDS: ASPIRIN 81 MG ECTAB PO SCH (08:27)
[2023-02-24] MEDS: CHOLECALCIFEROL 1,000 UNITS 25 MCG TAB PO SCH (08:27)
[2023-02-24] MEDS: ROSUVASTATIN CALCIUM 20 MG TAB PO SCH (08:27)
[2023-02-24] MEDS: dexAMETHasone 6 MG in SYRINGE 0 ML IV SCH (08:27)
[2023-02-24] MEDS: CYANOCOBALAMIN (B-12) 500 MCG TABLET PO SCH (08:27)
[2023-02-24] MEDS: MAGNESIUM OXIDE 400 MG TAB PO SCH (08:27)
[2023-02-24 08:29] LABS: BUN Creatinine Ratio 23.2 (10-20); Calcium 9.9 mg/dl (8.6-10.3); Creatinine Clr Calc Pharmacy 36.3 ml/min; Est GFR (African American) 60.2 ml/min; Potassium 5.9 mmol/L (3.5-5.1)
[2023-02-24] MEDS: INSULIN ASPART PER UNIT CHARGE SC SCH ×4 (08:35→21:06)
[2023-02-24] MEDS: LANTUS PER UNIT CHARGE SC SCH (08:36)
[2023-02-24] MEDS ORDERED: GLIMEPIRIDE 2 MG TAB PO SCH (09:00)
[2023-02-24] MEDS ORDERED: lisinopril 20 MG TAB PO SCH (09:00)
--- NOTE | 2023-02-24 10:53 | Orthopedic Progress Note ---
Date of Service February 24, 2023 Assessment & Plan (1) Lumbar stenosis with neurogenic claudication: Plan: This time initiate physical therapy manage her pain. Hopefully discharge home Sunday with possible home health. Admission and Anticipated Discharge Date Admission Date: February 23, 2023 Subjective Patient complaining mostly of back pain her leg symptoms have improved. She has been up and ambulating. Physical Exam Physical Exam: Patient is in the chair at the bedside. Discussed during the testing. Results & Data Vital Signs (Past 12 Hours) Vital Signs Temp Pulse Resp BP Pulse Ox O2 Del Method O2 Flow Rate 02/24/23 07:50 36.6 C 73 16 122/74 93 Room Air 02/24/23 02:55 36.7 C 66 18 130/73 96 Nasal Cannula 2 02/23/23 23:51 36.8 C 73 18 133/70 96 Nasal Cannula 2
[2023-02-24] MEDS: SODIUM ZIRCONIUM CYCLOSILICATE 10 GM PACKET PO SCH (11:06)
--- NOTE | 2023-02-24 11:07 | Pharmacy Report ---
Pharmacy Glycemic Short Note 2 - Date of Service February 24, 2023 - Glycemic Short BSG Results (Last 24 hours): 02/23/23 02/23/23 02/23/23 14:15 16:36 20:58 Glucose POC Glucose 132 H 183 H 255 H 02/24/23 02/24/23 07:40 07:45 Glucose 177 H POC Glucose 175 H OUTPATIENT ANTIDIABETIC REGIMEN: * metformin 1000 mg PO daily * glimepiride 4 mg PO daily * HbA1C = 6.6% (12/14/22) ASSESSMENT: * Ms Vega is an 87 y/o F with a PMH of T2DM who presents s/p back surgery. * Today is POD1. * On POD0, patient's BSGs were [phone] mg/dL. Patient received 25 units of insulin (10 units of basal (given at HS) + 25 units of bolus). * Patient had dexamethasone 8 mg IV preop. * Starting POD1, patient is to receive dexamethasone 6 mg IV daily. * Fasting today (POD1) is 175 mg/dL. * Will increase Lantus to 30 units daily (between full weight-based stress of 2/3). Tighten CR significantly. Will continue to tighten as appropriate due to effects from dexamethasone. PLAN FOR INPATIENT GLYCEMIC CONTROL: * Hold outpatient oral diabetes medications * Basal insulin * Lantus 30 units SQ daily * Bolus insulin * NovoLog per scale ACHS or Q6hrs while NPO * Goal Range: Low 110 mg/dL - High 140 mg/dL * Correction Factor: 25 mg/dL/unit * Nutritional / Prandial insulin per carb ratio of 1 unit per 6 grams CHO consumed
--- NOTE | 2023-02-24 11:59 | Hospitalist Consultation ---
Date of Consultation February 24, 2023 Assessment & Plan (1) Lumbar stenosis with neurogenic claudication: Postoperative day #1. Management per orthopedic spine surgery. Currently stable (2) Hyperkalemia: Lisinopril has been discontinued. She received 1 dose of Lokelma today, February 24. Serial labs (3) Moderate aortic stenosis: No intervention necessary at this time. Outpatient serial cardiac echo (4) Mixed hyperlipidemia: Stable. Continue current medical Plan Eventual discharge to home per primary service History of Present Illness Reason for Consultation: Medical Requesting Physician: Dr. Jl Jones Attending Physician: Carmelo Jones DO History of Present Illness 87-year-old white female who is alert and oriented to states she just underwent her fifth back surgery yesterday. She underwent removal and replacement of instrumentation with fusion and decompression laminectomy along with a bone graft. Remarkably, she is ambulating today with physical therapy. She is hyperkalemic and lisinopril has been discontinued. She did receive Lokelma x1. We will follow daily potassium levels. Other medications remain the same. Allergies Allergy/AdvReac Type Severity Reaction Status Date / Time cephalexin [From Keflex] AdvReac Intermediate Diarrhea Verified 02/23/23 08:57 nifedipine AdvReac Unknown Sleepiness Verified 02/23/23 08:57 (per records) Home Medications Medication Instructions Recorded Confirmed Type aspirin 81 mg tablet,delayed 81 mg PO QAM 12/01/20 02/23/23 History release blood-glucose meter (OneTouch #1 ea 06/14/21 02/15/23 Rx Verio Reflect Start kit) lancing device with lancets kit #100 ea 06/14/21 02/15/23 Rx (OneTouch Delica Lancing Device kit) acetaminophen 650 mg 650 mg PO Q8H PRN Pain 01/27/22 02/23/23 History tablet,extended release magnesium oxide 500 mg capsule 500 mg PO QAM 01/27/22 02/23/23 History mecobalamin (vitamin B12) 1,000 1,000 mcg PO QAM 01/27/22 02/23/23 History mcg chewable tablet (B12 Active) lisinopril 20 mg tablet 20 mg PO QAM #90 tabs 06/13/22 02/23/23 Rx rosuvastatin 40 mg tablet 40 mg PO QAM 90 days #90 tabs 06/13/22 02/23/23 Rx tramadol 50 mg tablet 50 mg PO DAILY PRN pain #30 tabs 12/15/22 02/23/23 Rx blood sugar diagnostic (OneTouch #50 ea 12/22/22 02/15/23 Rx Verio test strips) cholecalciferol (vitamin D3) 50 4,000 unit PO QAM 02/16/23 02/23/23 History mcg (2,000 unit) capsule glimepiride 4 mg tablet 4 mg PO QAM 02/16/23 02/23/23 History metformin 1,000 mg tablet 1,000 mg PO QAM 02/16/23 02/23/23 History oxycodone 5 mg tablet 5 mg PO Q6H PRN pain #30 tabs 02/23/23 Rx tramadol 50 mg tablet 50 mg PO Q6H PRN pain, moderate 02/23/23 Rx #30 tabs Patient History Medical History (Updated 02/24/23 @ 11:58 by Varun Stover MD) Aortic aneurysm US AAA 07/22/21- "No significant change in an infrarenal abdominal aortic aneurysm, measuring 3.1 cm" compared to 07/2021 Abdominal aortic US Aortic stenosis Echo 12/08/22: Moderate to severe aortic stenosis (MICHELLE 0.98cm2, MG 20.9 mmhg) Benign essential hypertension Carotid artery stenosis Noted in 2018 carotid doppler but subsequent Neck CTA 08/2021 with no hemodynamically significant stenosis Diabetes mellitus History of gastric ulcer Hyperparathyroidism Follows with endocrine Lumbar radicular pain Extensive epidural fibrosis Lumbar stenosis with neurogenic claudication Mixed hyperlipidemia Osteopenia Peripheral vascular disease Postlaminectomy syndrome of lumbosacral region Short-term memory loss Surgical History Difficult intubation Lumbar vertebral fusion (01/08/18): "good view with GS#3, ETT 7.0. L2-L3 decompression/fusion, L3-L4 hardware removal 12/20/20: Grade 3 view, Glidescope 3, ETT 7. "Unable to pass ETT even with pressure. Glidescope x 1..." L2-3 D+F, hardware removal L3-4 (12/20/20): MAC#3 x2 > Glidescope#3 x1, ETT# 7 (DVL x2- anterior unable to pass ETT even with pressure. Glidescope x1, atraumatic at [facility]. History of cataract surgery R/L History of colonoscopy History of esophagogastroduodenoscopy (EGD) EGD (04/10/22): MAC at [facility] History of fusion of lumbar spine lumbar vertebral fusion (01/08/18): "good view with GS#3, ETT 7.0. L2-L3 decompression/fusion, L3-L4 hardware removal 12/20/20: Grade 3 view, Gli descope 3, ETT 7. "Unable to pass ETT even with pressure. Glidescope x 1..." L2-3 D+F, hardware removal L3-4 (12/20/20): MAC#3 x2 > Glidescope#3 x1, ETT# 7 (DVL x2- anterior unable to pass ETT even with pressure. Glidescope x1, atraumatic at [facility]. History of hysterectomy History of hysterectomy total with unilateral removal of ovary History of laparoscopic cholecystectomy History of surgical fusion joint sacroiliac joint fusion: 07/05/17: Grade 2 view, Glidescope 3, ETT 7.5. History of tonsillectomy History of umbilical hernia repair Family History Father Myocardial infarction Unknown Ovarian cancer granddaughter Daughter Thyroid cancer Malignant neoplasm of kidney Mother Diabetes Brother Diabetes Denies family history of Prostate cancer Breast cancer Colorectal cancer Social History Smoking Status: Never smoker Second Hand Exposure: No; Do You Dip or Chew Tobacco: No; Hx Alcohol Use: Yes Alcohol type: hard liquor Hx Substance Use: No Preferred Language: Hungarian Communication Ability: Effective Visual Impairment: No Limitations Hearing Ability: Use of Hearing Aid Therapy Technician Required: No Beliefs That Will Affect Care: None marital status: / Current Living Situation: Alone current occupational status: retired current occupation: used to work at [employer] Feels Safe at Home: Yes Safety Concerns: Feels Safe At This Time Childhood Exposure to Second-Hand Smoke: Yes Diet: regular caffeine: No during the past year weight has: remained stable Dental Care, Regularly: Yes Physical Activity Frequency: 3-4 Times per Week Seatbelt Use: always Sunscreen Use: Yes (sometimes ) Assistive Devices: Cane, Glasses and Hearing Aid - Bilateral Review of Systems Review of Systems: Constitutional-no fever or chills ENT-no blurred vision, no double vision, no epistaxis, no sore throat Respiratory-no cough, no wheezing, no shortness of breath Cardiac-no palpitations, no chest pain, no syncope GI-no nausea, vomiting, diarrhea, melena, hematochezia -no urinary retention, no urinary incontinence, no dysuria, no hematuria Musculoskeletal-postsurgical lumbar pain as expected Skin-no bruising, no rashes, no pruritus Neuro-no isolated weakness, no paresthesia Psych-no depression, no anxiety Physical Exam Physical Exam: General-alert and oriented x3, no fevers, no chills HEENT-head atraumatic and normocephalic, pupils equal and reactive to light, extraocular muscles intact Neck-no lymphadenopathy or thyromegaly, trachea midline Chest-clear to auscultation percussion. No rales wheezing or rhonchi Cardiac-regular rate and rhythm, normal S1 and S2 Abdomen-normal bowel sounds, nontender, no hepatosplenomegaly Musculoskeletallumbar discomfort postoperatively as expected. Surgical site intact, clean and dry Extremities-no cyanosis, clubbing, or edema Neuro-cranial nerves II through XII intact, motor and sensory function within normal limits, strength symmetrical 5/5, no focal deficits Psych-normal affect, normal mood Results & Data Results & Data Vital Signs (Past 12 Hours) Vital Signs Temp Pulse Resp BP Pulse Ox O2 Del Method O2 Flow Rate 02/24/23 07:50 36.6 C 73 16 122/74 93 Room Air 02/24/23 02:55 36.7 C 66 18 130/73 96 Nasal Cannula 2 Laboratory Results 02/24/23 07:40 02/24/23 07:40 PG Care Time/CCT Total # of Minutes Spent Total Time Spent with Patient: Total time spent is greater than 50% in coordination of care (as documented) at patient's floor/unit and/or counseling patient: Coding Level of Care Code 66859 IN/OBS CONSULT LVL 4,60M Diagnoses Lumbar stenosis with neurogenic claudication M48.062 Hyperkalemia E87.5 Moderate aortic stenosis I35.0 Mixed hyperlipidemia E78.2
[2023-02-24] MEDS: DOCUSATE SODIUM/SENNA 50/8.6MG TAB PO SCH (20:07)
[2023-02-25] MEDS: POLYETHYLENE (MIRALAX) 17 GM PACK PO SCH (05:28)
[2023-02-25] MEDS: HYDROmorphone INJ 1 MG/ML SYRINGE IV PRN ×2 (05:31→17:24)
[2023-02-25 08:04] LABS: Basophils # (auto) 0.01 K/uL (0.00-0.20); Basophils % (auto) 0.1 %; Eosinophils # (auto) 0.01 K/uL (0.00-0.50); Eosinophils % (auto) 0.1 %; Hematocrit (blood only) 28.2 % (37.0-47.0); Hemoglobin 9.6 g/dl (12.0-16.0); Immature Granulocytes # (auto) 0.12 K/uL (0.01-0.20); Immature Granulocytes % (auto) 0.9 %; Lymphocytes # (auto) 1.75 K/uL (1.20-3.40); Lymphocytes % (auto) 13.1 %; Mean Corpuscular Hemoglobin 32.7 pg (25.0-34.0); Mean Corpuscular Volume 95.9 fL (80.0-100.0); Mean Platelet Volume 10.9 fL (9.4-12.4); Monocytes # (auto) 1.13 K/uL (0.11-0.59); Monocytes % (auto) 8.4 %; Neutrophils # (auto) 10.36 K/uL (1.40-6.50); Neutrophils % (auto) 77.4 %; Platelet Count 205 K/uL (130-400); RDW Coefficient of Variation 12.8 % (11.5-14.5); Red Blood Count 2.94 M/uL (4.20-5.40); White Blood Count 13.38 K/ul (4.8-10.8)
[2023-02-25] MEDS: ASPIRIN 81 MG ECTAB PO SCH (08:12)
[2023-02-25] MEDS: ROSUVASTATIN CALCIUM 20 MG TAB PO SCH (08:12)
[2023-02-25] MEDS: CYANOCOBALAMIN (B-12) 500 MCG TABLET PO SCH (08:12)
[2023-02-25] MEDS: MAGNESIUM OXIDE 400 MG TAB PO SCH (08:12)
[2023-02-25] MEDS: CHOLECALCIFEROL 1,000 UNITS 25 MCG TAB PO SCH (08:12)
[2023-02-25] MEDS: dexAMETHasone 6 MG in SYRINGE 0 ML IV SCH (08:14)
[2023-02-25 08:25] LABS: BUN Creatinine Ratio 32.3 (10-20); Calcium 9.9 mg/dl (8.6-10.3); Creatinine Clr Calc Pharmacy 37.5 ml/min; Est GFR (African American) 62.5 ml/min; Est GFR (Non-African American) 53.9 ml/min; Potassium 5.2 mmol/L (3.5-5.1)
[2023-02-25] MEDS: LANTUS PER UNIT CHARGE SC SCH (08:37)
[2023-02-25] MEDS: INSULIN ASPART PER UNIT CHARGE SC SCH ×4 (08:38→20:35)
--- NOTE | 2023-02-25 09:56 | Orthopedic Progress Note ---
Date of Service February 25, 2023 Assessment & Plan (1) Lumbar radicular pain: Plan: At this time we will continue physical therapy monitor LAWRENCE operatively discharge home early next week. Admission and Anticipated Discharge Date Admission Date: February 23, 2023 Subjective Back pain controlled left leg symptoms markedly improved Physical Exam Physical Exam: Patient is in the chair at the bedside. Is comfortable. Is good strength testing. Results & Data Vital Signs (Past 12 Hours) Vital Signs Temp Pulse Resp BP Pulse Ox O2 Del Method 02/25/23 07:52 36.8 C 63 16 138/72 95 Room Air
[2023-02-25] MEDS: oxyCODONE HCL IR 5 MG TAB (IMMEDIATE RELEASE) PO PRN (10:37)
[2023-02-25] MEDS: SODIUM ZIRCONIUM CYCLOSILICATE 10 GM PACKET PO SCH (12:27)
--- NOTE | 2023-02-25 14:07 | Hospitalist Progress Note ---
Date of Service February 25, 2023 Assessment & Plan (1) Lumbar stenosis with neurogenic claudication: Plan: Postoperative day #2. Management per orthopedic spine surgery. Currently stable (2) Hyperkalemia: Plan: Lisinopril has been discontinued. She received 1 dose of Lokelma on February 24. Improved. Serial labs (3) Moderate aortic stenosis: Plan: No intervention necessary at this time. Outpatient serial cardiac echo (4) Mixed hyperlipidemia: Plan: Stable. Continue current medical Plan Eventual discharge to home per primary service. Hopefully this February 27 Admission and Anticipated Discharge Date Admission Date: February 23, 2023 Subjective Medically stable. Potassium improved to 5.2 after lisinopril was discontinued and she received 1 dose of Lokelma. Postoperative day 2 after her back surgery. She states that she will probably be going home on Sunday. Review of Systems Review of Systems: Constitutional-no fever or chills ENT-no blurred vision, no double vision, no epistaxis, no sore throat Respiratory-no cough, no wheezing, no shortness of breath Cardiac-no palpitations, no chest pain, no syncope GI-no nausea, vomiting, diarrhea, melena, hematochezia -no urinary retention, no urinary incontinence, no dysuria, no hematuria Musculoskeletal-postsurgical lumbar pain as expected Skin-no bruising, no rashes, no pruritus Neuro-no isolated weakness, no paresthesia Psych-no depression, no anxiety Physical Exam Physical Exam: General-alert and oriented x3, no fevers, no chills HEENT-head atraumatic and normocephalic, pupils equal and reactive to light, extraocular muscles intact Neck-no lymphadenopathy or thyromegaly, trachea midline Chest-clear to auscultation percussion. No rales wheezing or rhonchi Cardiac-regular rate and rhythm, normal S1 and S2 Abdomen-normal bowel sounds, nontender, no hepatosplenomegaly Musculoskeletallumbar discomfort postoperatively as expected. Surgical site intact, clean and dry Extremities-no cyanosis, clubbing, or edema Neuro-cranial nerves II through XII intact, motor and sensory function within normal limits, strength symmetrical 5/5, no focal deficits Psych-normal affect, normal mood Results & Data Results & Data Vital Signs (Past 12 Hours) Vital Signs Temp Pulse Resp BP Pulse Ox O2 Del Method 02/25/23 07:52 36.8 C 63 16 138/72 95 Room Air Laboratory Results 02/25/23 07:32 02/25/23 07:32 PG Care Time/CCT Total # of Minutes Spent Total Time Spent with Patient: Total time spent is greater than 50% in coordination of care (as documented) at patient's floor/unit and/or counseling patient: Coding Level of Care Code 09028 SUB INP/OBS CARE 2/35MIN Diagnoses Lumbar stenosis with neurogenic claudication M48.062 Hyperkalemia E87.5 Moderate aortic stenosis I35.0 Mixed hyperlipidemia E78.2
[2023-02-25] MEDS: DOCUSATE SODIUM/SENNA 50/8.6MG TAB PO SCH (20:12)
[2023-02-26 06:33] LABS: Basophils # (auto) 0.01 K/uL (0.00-0.20); Basophils % (auto) 0.1 %; Hematocrit (blood only) 29.1 % (37.0-47.0); Hemoglobin 10.1 g/dl (12.0-16.0); Immature Granulocytes # (auto) 0.13 K/uL (0.01-0.20); Immature Granulocytes % (auto) 1.1 %; Lymphocytes # (auto) 1.99 K/uL (1.20-3.40); Lymphocytes % (auto) 16.6 %; Mean Corpuscular Hemoglobin 32.6 pg (25.0-34.0); Mean Corpuscular Hgb Conc 34.7 g/dL (32.0-36.0); Mean Corpuscular Volume 93.9 fL (80.0-100.0); Mean Platelet Volume 10.7 fL (9.4-12.4); Monocytes # (auto) 1.07 K/uL (0.11-0.59); Monocytes % (auto) 8.9 %; Neutrophils # (auto) 8.76 K/uL (1.40-6.50); Neutrophils % (auto) 73.3 %; Platelet Count 213 K/uL (130-400); RDW Coefficient of Variation 12.5 % (11.5-14.5); RDW Standard Deviation 42.9 fL (36.4-46.3); White Blood Count 11.96 K/ul (4.8-10.8)
[2023-02-26 07:04] LABS: BUN Creatinine Ratio 30.1 (10-20); Calcium 9.9 mg/dl (8.6-10.3); Creatinine Clr Calc Pharmacy 34.9 ml/min; Est GFR (African American) 57.4 ml/min; Est GFR (Non-African American) 49.5 ml/min; Potassium 4.5 mmol/L (3.5-5.1)
--- NOTE | 2023-02-26 07:47 | Pharmacy Report ---
Pharmacy Glycemic Short Note 2 - Date of Service February 26, 2023 - Glycemic Short BSG Results (Last 24 hours): 02/25/23 02/25/23 02/25/23 07:32 07:48 11:36 Glucose 155 H POC Glucose 156 H 168 H 02/25/23 02/25/23 02/26/23 16:27 20:27 06:01 Glucose 107 H POC Glucose 209 H 168 H 02/26/23 07:40 Glucose POC Glucose 103 H OUTPATIENT ANTIDIABETIC REGIMEN: * metformin 1000 mg PO daily * glimepiride 4 mg PO daily * HbA1C = 6.6% (12/14/22) ASSESSMENT: 02/26/23: * BSGs trended up during the day yesterday, ranging 156-209 mg/dL w/ fasting BSG of 103 mg/dL this morning * Received 58 units of insulin (~50/50 basal/bolus split) * Will slightly tighten carb ratio today given uptrend, but will decrease basal ~15% in light of improved fasting * Last dose of dexamethasone today 02/24/23: * Ms Vega is an 87 y/o F with a PMH of T2DM who presents s/p back surgery. * Today is POD1. * On POD0, patient's BSGs were [phone] mg/dL. Patient received 25 units of insulin (10 units of basal (given at HS) + 25 units of bolus). * Patient had dexamethasone 8 mg IV preop. * Starting POD1, patient is to receive dexamethasone 6 mg IV daily. * Fasting today (POD1) is 175 mg/dL. * Will increase Lantus to 30 units daily (between full weight-based stress of 2/3). Tighten CR significantly. Will continue to tighten as appropriate due to effects from dexamethasone. PLAN FOR INPATIENT GLYCEMIC CONTROL: * Hold outpatient oral diabetes medications * Basal insulin - decrease * Lantus 25 units SQ daily * Bolus insulin * NovoLog per scale ACHS or Q6hrs while NPO * Goal Range: Low 110 mg/dL - High 140 mg/dL * Correction Factor: 20 mg/dL/unit * Nutritional / Prandial insulin per carb ratio of 1 unit per 4.5 grams CHO consumed
[2023-02-26] MEDS: oxyCODONE HCL IR 5 MG TAB (IMMEDIATE RELEASE) PO PRN ×3 (07:54→21:47)
[2023-02-26] MEDS ORDERED: LANTUS PER UNIT CHARGE SC SCH (09:00)
--- NOTE | 2023-02-26 09:02 | Orthopedic Progress Note ---
Date of Service February 26, 2023 Assessment & Plan (1) Lumbar stenosis with neurogenic claudication: Plan: At this time we will continue physical therapy monitor LAWRENCE output anticipate discharge home tomorrow. Admission and Anticipated Discharge Date Admission Date: February 23, 2023 Subjective Patient back pain is improving left leg symptoms improved. Physical Exam Physical Exam: Patient is currently bed. She is comfortable. Discussed when to testing. Results & Data Vital Signs (Past 12 Hours) Vital Signs Temp Pulse Resp BP Pulse Ox O2 Del Method 02/26/23 07:18 36.5 C 72 16 156/73 H 94 Room Air 02/25/23 22:17 36.8 C 67 18 147/74 H 94 Room Air
[2023-02-26] MEDS: ROSUVASTATIN CALCIUM 20 MG TAB PO SCH (10:53)
[2023-02-26] MEDS: CYANOCOBALAMIN (B-12) 500 MCG TABLET PO SCH (10:54)
[2023-02-26] MEDS: MAGNESIUM OXIDE 400 MG TAB PO SCH (10:54)
[2023-02-26] MEDS: CHOLECALCIFEROL 1,000 UNITS 25 MCG TAB PO SCH (10:54)
[2023-02-26] MEDS: ASPIRIN 81 MG ECTAB PO SCH (10:54)
[2023-02-26] MEDS: dexAMETHasone 6 MG in SYRINGE 0 ML IV SCH (10:55)
[2023-02-26] MEDS: SODIUM ZIRCONIUM CYCLOSILICATE 10 GM PACKET PO SCH (10:56)
[2023-02-26] MEDS: INSULIN ASPART PER UNIT CHARGE SC SCH ×4 (11:15→21:19)
[2023-02-26] MEDS: DOCUSATE SODIUM/SENNA 50/8.6MG TAB PO SCH (20:27)
--- NOTE | 2023-02-27 06:43 | Hospitalist Progress Note ---
Date of Service February 27, 2023 Assessment & Plan (1) Lumbar stenosis with neurogenic claudication: Plan: Postoperative day #4. Management per orthopedic spine surgery. Currently stable (2) Hyperkalemia: Plan: Lisinopril has been discontinued. She received 1 dose of Lokelma on February 24. Improved. Removed lisinopril from discharge meds. Informed patient on 02/27. She showed understanding, family was at bedside. (3) Moderate aortic stenosis: Plan: No intervention necessary at this time. Outpatient serial cardiac echo (4) Mixed hyperlipidemia: Plan: Stable. Continue current medical Admission and Anticipated Discharge Date Admission Date: February 23, 2023 Subjective 87 yo male reports no new symptoms Review of Systems Review of Systems: All systems reviewed & are unremarkable except as noted in HPI & below Physical Exam Physical Exam: General-alert and oriented x3 HEENT-head atraumatic and normocephalic, pupils equal and reactive to light, extraocular muscles intact Neck- trachea midline Chest-not using accessory muscles to breath Results & Data Results & Data Vital Signs (Past 12 Hours) Vital Signs Temp Pulse Resp BP Pulse Ox O2 Del Method 02/26/23 20:56 37.1 C 72 18 113/68 96 Room Air PG Care Time/CCT Total # of Minutes Spent Total Time Spent with Patient: Total time spent is greater than 50% in coordination of care (as documented) at patient's floor/unit and/or counseling patient: Coding Level of Care Code 00084 SUB INP/OBS CARE 2/35MIN Diagnoses Lumbar stenosis with neurogenic claudication M48.062 Hyperkalemia E87.5 Moderate aortic stenosis I35.0 Mixed hyperlipidemia E78.2
[2023-02-27 06:55] LABS: Basophils # (auto) 0.01 K/uL (0.00-0.20); Basophils % (auto) 0.1 %; Hematocrit (blood only) 28.6 % (37.0-47.0); Hemoglobin 9.9 g/dl (12.0-16.0); Immature Granulocytes # (auto) 0.15 K/uL (0.01-0.20); Immature Granulocytes % (auto) 1.5 %; Lymphocytes # (auto) 2.13 K/uL (1.20-3.40); Lymphocytes % (auto) 20.6 %; Mean Corpuscular Hemoglobin 32.5 pg (25.0-34.0); Mean Corpuscular Hgb Conc 34.6 g/dL (32.0-36.0); Mean Corpuscular Volume 93.8 fL (80.0-100.0); Mean Platelet Volume 10.9 fL (9.4-12.4); Monocytes # (auto) 0.92 K/uL (0.11-0.59); Monocytes % (auto) 8.9 %; Neutrophils # (auto) 7.13 K/uL (1.40-6.50); Neutrophils % (auto) 68.9 %; Platelet Count 229 K/uL (130-400); RDW Coefficient of Variation 12.5 % (11.5-14.5); RDW Standard Deviation 43.2 fL (36.4-46.3); Red Blood Count 3.05 M/uL (4.20-5.40); White Blood Count 10.34 K/ul (4.8-10.8)
[2023-02-27 07:17] LABS: BUN Creatinine Ratio 31.4 (10-20); Calcium 9.5 mg/dl (8.6-10.3); Creatinine Clr Calc Pharmacy 35.3 ml/min; Est GFR (African American) 58.1 ml/min; Est GFR (Non-African American) 50.1 ml/min; Potassium 4.4 mmol/L (3.5-5.1)
[2023-02-27] MEDS: INSULIN ASPART PER UNIT CHARGE SC SCH ×2 (08:39→12:13)
[2023-02-27] MEDS: oxyCODONE HCL IR 5 MG TAB (IMMEDIATE RELEASE) PO PRN (08:39)
[2023-02-27] MEDS: MAGNESIUM OXIDE 400 MG TAB PO SCH (08:40)
[2023-02-27] MEDS: CHOLECALCIFEROL 1,000 UNITS 25 MCG TAB PO SCH (08:40)
[2023-02-27] MEDS: ROSUVASTATIN CALCIUM 20 MG TAB PO SCH (08:40)
[2023-02-27] MEDS: ASPIRIN 81 MG ECTAB PO SCH (08:41)
[2023-02-27] MEDS: CYANOCOBALAMIN (B-12) 500 MCG TABLET PO SCH (08:41)
--- NOTE | 2023-02-27 10:26 | Discharge Summary ---
Date of Service February 27, 2023 Admission HPI Per Admitting Provider This is an 87-year-old female presents with chronic persistent back and leg pain and failing course of nonoperative care she is here for surgical invention. Principal Diagnosis Lumbar spinal stenosis with radiculopathy Discharge Data Allergies Allergy/AdvReac Type Severity Reaction Status Date / Time cephalexin [From Keflex] AdvReac Intermediate Diarrhea Verified 02/23/23 08:57 nifedipine AdvReac Unknown Sleepiness Verified 02/23/23 08:57 (per records) Consultations 02/23/23 15:44 Consult Hospitalist Routine Procedures Performed Operation Date: 02/23/23 10:05 Actual Procedures p L1-L2 Decompression, T11-L2 Fusion, L2-L4 Hardware Removal with Spinal Cord Monitoring(Not Applicable) - Carmelo Jones DO Ordered Studies 02/23/23 10:05 FL lumbar spine 2-3V Routine Hospital Course (1) Lumbar stenosis with neurogenic claudication: Patient underwent lumbar decompression fusion tolerates well stable orthopedic floor postoperative. Postop day #1 chips and ambulating progressed postop day #2 and 3 LAWRENCE drain decreasing appropriately. Pain steadily improved. Simply discharged home. Discharge orders instructions via chart review. Total Time Total Time Spent Total Time Spent (In Minutes): 20 minutes Discharge Plan Discharge Items Patient Disposition: Home - Self-Care Reason For Visit: Intervertebral Disc Disorders with Radiculopathy Discharge Diagnosis: Lumbar spinal stenosis with neurogenic claudication Activity: As commented below Non-emergency contact: Primary Care Provider Call non-emergency contact if: you have any medication questions Follow-up/Referrals: Dominguez Cavanaugh DO [Primary Care Provider] - Diet: Regular Addtl Attending Provider Instructions: ACTIVITY RECOMMENDATIONS: SELF CARE INSTRUCTIONS AFTER THORACIC/LUMBAR FUSIONS 1. You may walk to your tolerance. It is good exercise for your legs and back. Expect some back and intermittent leg aches and pains. 2. You may perform "counter-top" level activities (make a sandwich, shirley with a project, etc.). 3. No bending or lifting of more than 10 pounds or back twisting of any nature (roll like a log when turning in bed). 4. You may ride in a car for 20-30 minutes at a time. No driving until after your first visit with your doctor. 5. Frequent changes of position and restricting sitting to 30 minutes at a time will help limit the amount of back spasms and stiffness you may experience. 6. You may discontinue the use of ambulatory aids (cane, crutches, etc.) once your strength and confidence allow. 7. You may strawhat blocking operator the shower and let water strike your incision when you arrive home at least once daily. Do not take a tub bath, sit in a hot tub or go into a swimming pool until after your first recheck in the office. SPECIAL CARE INSTRUCTIONS: VERY IMPORTANT TO READ AND REVIEW A. Your surgical incision has been closed with a cosmetic suture under the skin that will dissolve in about 6 weeks. In 14 days, you can use a pair of clean scissors and cut the suture that is left outside of the skin at the ends of your incision. 1. The small skin tapes can be removed 7 days after surgery if they have not fallen off by that point. 2. You may keep the wound open to air as much as possible to promote healing after post-op day number 5 unless told otherwise by your doctor. 3. If you think the wound looks like it is becoming infected (redness or worsening drainage) and/or you are experiencing fever, chill or worsening back pain and muscle spasms, contact the office so that we may evaluate you as soon as possible. B. Complications are uncommon, but please contact us if you have any signs or symptoms of: 1. wound infection (fever higher than 102.5 degrees F, redness, separation of wound, drainage, or increasing pain from the incision) 2. blood clots in legs (pain, swelling, redness and warmth in legs) 3. urinary tract infection (fever higher than 102.5 degrees F, burning upon urination or increased frequency of urination) 4. nerve problems (inability to walk on your toes or heels, numbness, loss of bowel or bladder control) 5. any other symptoms that concern you C. Please call the office at if you have any concerns or questions about your operation or recovery. D. No smoking! Smoking drastically decreases the chance of a solid fusion. E. Do not take any anti-inflammatory medications (Indocin, Advil, Motrin, Aspirin, Naprosyn, etc.) as these may inhibit the chance of a solid fusion. Tylenol is okay to take for pain. MANAGING PAIN AFTER SPINAL SURGERY 1. Narcotic medication is intended for short-term use and will be provided for surgical pain. Surgical pain usually lasts for a period of 4-6 weeks. Narcotic medication includes Percocet, Vicodin, Darvocet, Tylenol #3 or Lortab. 2. Longer-term pain is more appropriately treated with non-narcotic medication such as Tylenol ES. 3. Muscle spasm is not appropriately treated with narcotics. Muscle relaxers such as Soma, Flexeril or Skelaxin can be used along with Tylenol ES. 4. Remember that we all live with some "aches and pains". This is not unusual or uncommon after an injury or as we get older. a. Back pain is expected and may include muscle spasms for 4 to 6 weeks after surgery. The pain should gradually improve. If the pain worsens for no apparent reason, please contact the office. b. Intermittent leg pain may also be experienced and should not be concerned about unless it worsens for no apparent reason. If so, please contact the office. 5. We will provide appropriate medication within the normal guidelines of their prescribed use. We will also be very cautious and aware of potential abuse and extended duration of patients' medication needs. a. Pain medications are for your comfort and to assist with sleep and rest so that the tissue can heal. They are not provided in order to return to normal activity and should not be used through the day. To do so or worsening pain at night can result from ongoing tissue damage and development of tolerance to the prescribed medicine. 6. Please allow 2-3 days to process refills. Prescriptions will not be mailed but must be picked up at the office. FOLLOW UP VISIT: Keep your scheduled follow-up appointment. Any questions, please call the office at . Pending Studies at Discharge: No Stand-Alone Forms: My [employer], Smoking Cessation Medications and DC Order Prescriptions: New tramadol 50 mg tablet 50 mg PO Q6H PRN (Reason: pain, moderate) Qty: 30 0RF oxycodone 5 mg tablet 5 mg PO Q6H PRN (Reason: pain) Qty: 30 0RF Continued lisinopril 20 mg tablet 20 mg PO QAM Qty: 90 3RF rosuvastatin 40 mg tablet 40 mg PO QAM 90 Days Qty: 90 2RF tramadol 50 mg tablet 50 mg PO DAILY PRN (Reason: pain) Qty: 30 0RF (DME) OneTouch Verio test strips Strip See Rx Instructions .Route Qty: 50 3RF Rx Instructions: TEST ONCE DAILY (DME) blood-glucose meter [OneTouch Verio Reflect Start] Kit See Rx Instructions .Route Qty: 1 0RF Rx Instructions: As directed (DME) lancing device with lancets [OneTouch Delica Lanc Device] Kit See Rx Instructions .Route Qty: 100 0RF Rx Instructions: As directed metformin 1,000 mg tablet 1,000 mg PO QAM glimepiride 4 mg tablet 4 mg PO QAM cholecalciferol (vitamin D3) 50 mcg (2,000 unit) capsule 4,000 unit PO QAM aspirin 81 mg Tablet,Delayed Release (Dr/Ec) 81 mg PO QAM acetaminophen 650 mg Tablet Extended Release 650 mg PO Q8H PRN (Reason: Pain) magnesium oxide 500 mg capsule 500 mg PO QAM mecobalamin (vitamin B12) [B12 Active] 1,000 mcg tablet,chewable 1,000 mcg PO QAM Discharge Orders: Discharge Order (Routine); Ordered 02/27/23 Ordered By: Carmelo Jones Admission Data Admit Date/Time: 02/23/23 13:41 Attending Provider: Carmelo Jones Admit Provider: Carmelo Jones Primary Care Provider: Dominguez Cavanaugh Other Providers: Ralph Funez ; Narayan Hawthorne
[2023-02-27] MEDS: SODIUM ZIRCONIUM CYCLOSILICATE 10 GM PACKET PO SCH (11:39)
== END 2023-02-27 12:57 | disposition home or self-care (01) | DRG 455 ==
LOC: ASU 08:23 → 3E 13:41